=== PATIENT | female | born 1960 | race Caucasian/White ===

== ENCOUNTER 2023-12-09 13:24 | Outpatient (REF) | payer OTHER, SELFPAY ==
--- NOTE | ~2023-12-09 | XR_ITS ---
EXAMINATION: XR ABDOMEN COMPLETE CLINICAL INDICATION: Abdominal carcinomatosis, constipation COMPARISON: None available. TECHNIQUE: 2 views of the abdomen. FINDINGS: The bowel gas pattern is nonobstructive. No free air seen. There is moderate colonic fecal material with larger fecal material at the level of the rectum. Numerous sclerotic foci of bone observed suspicious for osseous metastases. Lumbar spondylitic change as well as degenerative disc space narrowing. XR/XR abdomen min 2V IMPRESSION: Nonobstructive bowel gas pattern without any evidence for free air. Moderate colonic fecal material with larger rectal fecal material seen. Numerous sclerotic foci of bone suspicious for osseous metastases. Electronically signed by: Sanchez Leyva MD 12/10/2023 11:49 AM EDT
--- NOTE | ~2023-12-09 | XR_ITS ---
EXAMINATION: XR CHEST CLINICAL INFORMATION: Malignant right pleural effusion COMPARISON: November 21, 2023. TECHNIQUE: Frontal view of the chest and decubitus view performed. FINDINGS: There is a large right hydropneumothorax with layering on the decubitus view. The pneumothorax previously seen on the right has markedly increased. No distinct acute left lung consolidation. The pulmonary vascularity on the left appears to be stable. XR/XR chest w decubitus IMPRESSION: Large right hydropneumothorax with layering on the decubitus view. The pneumothorax has prominently increased since the previous evaluation. Electronically signed by: Sanchez Leyva MD 12/10/2023 11:32 AM EDT
== END 2023-12-09 13:25 | disposition home or self-care (01) ==
LOC: HO.XRAY 13:24
PROVIDERS: Visit Provider Internal Medicine Medical Oncology
DX: C50.919 Malignant neoplasm of unspecified site of unspecified female breast (principal); J91.0 Malignant pleural effusion; C79.51 Secondary malignant neoplasm of bone
CPT/HCPCS: 71048; 74019

== ENCOUNTER 2023-12-29 12:04 | Inpatient (IN) | payer OTHER, SELFPAY ==
[2023-12-29] VITALS (9 sets, daily range): BP systolic 79–156; BP diastolic 49–72; PULSE 67–107; RESP 14–24; TEMP 36.3–36.7; O2SAT 95–98; BMI 32.6
--- NOTE | ~2023-12-29 | CT_ITS ---
CLINICAL HISTORY: Right pneumothorax. PROCEDURES: 1. Limited preprocedure CT of the chest. Permanent images saved in PACS. 2. CT-guided right chest tube placement. 3. Limited post procedure CT of the chest. Permanent images saved in PACS. CLINICIANS: Rakan Solomon PA-C MEDICATIONS: -Fentanyl 25 mcg, and lidocaine 1% 10 mL SQ -Antibiotics: None -For additional details, please see nursing flowsheet. COMPLICATIONS: None ESTIMATED BLOOD LOSS: < 5 ml CONTRAST: None SPECIMENS: A specimen was sent for culture. PROCEDURE NOTE: The procedure, risks, benefits, and alternatives were carefully explained to the patient and written informed consent was obtained. The patient was placed supine on the CT table. A timeout was performed. A limited CT of the chest was performed to localize the large right pneumothorax and choose appropriate needle entry and trajectory. The patient was prepped and draped in usual sterile fashion. The skin and subcutaneous tissues were anesthetized with lidocaine. Under CT guidance, a trocar needle was advanced through the chest wall into the right pleural space. Air was immediately aspirated. A 0.0035 J wire was inserted through the the trocar needle and coiled in the apex of the right pleural space. The trocar needle was then removed over the wire. The tract was then serially dilated. Over the wire, a 10 fr all-purpose drainage catheter was advanced and coiled into the right pleural space under CT guidance. The wire was then removed. The catheter was secured to the skin with a 2-0 nylon suture. The catheter was then connected to a close drainage system. A limited postprocedure CT was then obtained. The patient was stable after the procedure and was transferred back to the medical floor. CT/CT chest tube placement Impression: CT guided placement of a right chest tube. This procedure was performed by Rakan Solomon PA-C and supervised by Dr. Clark. Electronically signed by: Edgard Coffman MD 01/11/2024 04:21 PM [facility]
--- NOTE | ~2023-12-29 | XR_ITS ---
EXAMINATION: XR CHEST CLINICAL INFORMATION: dyspnea COMPARISON: X-ray dated December 29, 2023. TECHNIQUE: Frontal view of the chest was obtained. FINDINGS: Right-sided pneumothorax, moderate volume. Haziness in hypodensity in the right lower hemithorax likely pleural compartment. Volume loss/partially collapsed right lung. Pulmonary reticular pattern in the left lung. Cardiomediastinal silhouette size is normal with calcified plaque aortic arch. Multilevel thoracic spondylosis. Degenerative changes in the shoulders. XR/XR chest 1V IMPRESSION: Persistent right hydropneumothorax, moderate volume. Partially collapsed right lung. Overall no gross change. Electronically signed by: Dawit Barnard MD 12/30/2023 07:06 AM [facility]
--- NOTE | ~2023-12-29 | CT_ITS ---
EXAMINATION: CT ABDOMEN AND PELVIS WITHOUT CONTRAST CLINICAL INFORMATION: 63-year-old female was acute renal failure COMPARISON: None available. TECHNIQUE: Multidetector volumetric imaging was performed from the superior aspect of the liver through the pubic symphysis. Sagittal and coronal reformatted images were obtained on the technologist's workstation. This CT examination was performed using dose optimization techniques as appropriate, variously including the following: *Automated exposure control *Adjustment of mA and/or kV according to patient size (this includes techniques or standardized protocols for targeted exams where dose is matched to indication/reason for exam; i.e. extremities or head) *Use of iterative reconstruction technique DLP: 607 mGy-cm FINDINGS: LUNG BASES: There is right hydropneumothorax with visualized lung collapse surrounded by air and with dependent fluid in the right hemithorax. Left lung base is unremarkable. LIVER, GALLBLADDER, AND BILIARY TREE: The liver is normal in size, shape, and attenuation. No focal hepatic lesion or biliary ductal dilatation is present. The gallbladder is unremarkable with no evidence of radiopaque gallstones, gallbladder wall thickening, or obvious pericholecystic inflammatory changes. PANCREAS: Unremarkable. SPLEEN: Unremarkable. ADRENAL GLANDS: Unremarkable. KIDNEYS AND URETERS: The kidneys are normal in size, shape, and attenuation. No hydronephrosis, hydroureter, or calculi seen. No perinephric stranding. BLADDER: Bladder is partially decompressed via King catheter. GASTROINTESTINAL TRACT: Scattered diverticula seen in the descending colon ABDOMINAL WALL: There is fat-containing supraumbilical mid abdominal hernia. LYMPH NODES: Normal. VASCULAR: Unremarkable. PELVIC VISCERA: Unremarkable. OSSEOUS STRUCTURES: There are innumerable sclerotic lesions seen in the lumbar spine, pelvis, visualized hips, visualized ribs most likely due to widespread sclerotic metastases CT/CT abdomen pelvis wo IV con IMPRESSION: Right hydropneumothorax. Innumerable sclerotic lytic metastasis. Fleischner guidelines were followed. Electronically signed by: Nazario Babcock MD 12/29/2023 06:15 PM [facility]
--- NOTE | ~2023-12-29 | XR_ITS ---
EXAMINATION: XR CHEST CLINICAL INFORMATION: Shortness of breath. COMPARISON: Multiple priors, most recent chest radiograph dated 01/01/2024. TECHNIQUE: Frontal view of the chest was obtained. FINDINGS: Redemonstration of a right-sided chest tube in unchanged position. Persistent right apical pneumothorax, similar when compared to the prior examination. No left-sided pneumothorax. Small right-sided pleural effusion with right basilar airspace opacities, unchanged. Left basilar airspace opacities are slightly increased. Stable cardiomediastinal silhouette. XR/XR chest 1V IMPRESSION: 1. Right-sided chest tube in unchanged position with a persistent right apical pneumothorax, similar when compared to the prior examination. 2. Small right-sided pleural effusion with right basilar airspace opacities, unchanged. 3. Left basilar airspace opacities, slightly increased. Electronically signed by: Suresh Villareal MD 01/02/2024 07:41 PM [facility]
--- NOTE | ~2023-12-29 | CT_ITS ---
EXAMINATION: CT CHEST WITHOUT CONTRAST CLINICAL INFORMATION: Hypoxia. Shortness of breath. COMPARISON: No prior CT. Correlated to multiple chest x-rays dated December 28 and December 30, 2023. TECHNIQUE: Multidetector volumetric CT imaging of the chest was done. Axial MIP volume rendering provided. Sagittal and coronal reformatted images were obtained. This CT examination was performed using dose optimization techniques as appropriate, variously including the following: *Automated exposure control *Adjustment of mA and/or kV according to patient size (this includes techniques or standardized protocols for targeted exams where dose is matched to indication/reason for exam; i.e. extremities or head) *Use of iterative reconstruction technique DLP: 293 mGy-cm FINDINGS: Right-sided hydropneumothorax, large volume. Partially collapsed right upper and lower lobes and likely collapsed right middle lobe. Left-sided to pleural effusion, small volume. Multifocal patchy pulmonary groundglass, bilaterally. Calcified plaques throughout the thoracic aorta wall and the coronary arteries. No pericardial effusion. Multiple blastic lesions throughout the axial skeleton the rib cage the sternum, scapula and likely the appendicular skeleton. Fat-containing epigastric hernia.. . CT/CT chest wo IV con IMPRESSION: Right-sided hydropneumothorax, large volume. Partially collapsed right lung. Mild interstitial lung edema. Numerous blastic osseous metastasis. Discussed with the nurse, Juan, at the time of the interpretation on December 30, 2023 at 8:15 AM. Fleischner guidelines were followed. Electronically signed by: Dawit Barnard MD 12/30/2023 08:17 AM [facility]
--- NOTE | ~2023-12-29 | XR_ITS ---
EXAMINATION: XR CHEST 1 VIEW CLINICAL INFORMATION: hydropneumothorax COMPARISON: January 02, 2024 TECHNIQUE: Single portable frontal view. Tubes and lines: Right chest tube has been removed. Lungs and pleura: Diffuse interstitial opacification involving both lung ribeiro has not changed. Slightly increased right pneumothorax. No evidence of tension. Bilateral subpulmonic pleural effusions. Heart and mediastinum: The mediastinum is within normal limits.. Bones/soft tissue: Skeletal structures included are normal for patient's age. XR/XR chest 1V IMPRESSION: 1. Right chest tube has been removed. 2. Slightly increased right pneumothorax. No evidence of tension. 3. Diffuse interstitial opacification and bilateral subpulmonic pleural effusions unchanged. (Referring physician staff is being called, by physician staff assistance, to be alerted of the above critical findings and recommendations.) Maryse Javed 01/03/2024 2:46 PM [facility] [employer] 1. Electronically signed by: Chip Barnes MD 01/03/2024 03:47 PM [facility]
--- NOTE | ~2023-12-29 | US_ITS ---
EXAMINATION: US ABDOMEN LIMITED CLINICAL INFORMATION: Hepatitis. COMPARISON: CT abdomen/pelvis dated 12/29/2023. TECHNIQUE: Real-time imaging of the right upper quadrant abdominal viscera. FINDINGS: PANCREAS: Obscured by overlying bowel gas. The visualized portion of the pancreatic head is unremarkable. LIVER: Unremarkable. The liver is normal in size. The liver contour is normal. Parenchymal echogenicity is normal. No focal hepatic lesion. There is no intrahepatic biliary duct dilatation seen. GALLBLADDER: Nonmobile probable gallbladder wall polyp measuring up to 0.5 cm. No mobile gallstone. No significant bladder wall thickening or pericholecystic free fluid to suggest acute cholecystitis. Probable focal fatty sparing adjacent to the gallbladder within the right lobe of the liver. COMMON BILE DUCT: Normal in caliber measuring 0.6 cm in diameter. RIGHT KIDNEY: Mild renal pelvic fullness. No renal calculi or focal parenchymal lesions. The kidney measures 9.8 cm in maximum dimension. FREE FLUID: None. US/US abdomen limited IMPRESSION: 1. Probable gallbladder wall polyp measuring 0.5 cm. No cholelithiasis, gallbladder wall thickening, or pericholecystic free fluid to suggest acute cholecystitis. 2. Mild right renal pelvic fullness. 3. Pancreas obscured by overlying bowel gas. Electronically signed by: Suresh Villareal MD 01/03/2024 03:04 PM [facility]
--- NOTE | ~2023-12-29 | XR_ITS ---
EXAMINATION: XR CHEST CLINICAL INFORMATION: chest tube COMPARISON: Chest x-ray on 12/30/2023 at 0118 hours TECHNIQUE: Frontal view of the chest was obtained on 12/30/2023 at 0456 hours. FINDINGS: HEART & VASCULARITY: There are normal cardiac size and pulmonary vascularity. There is no significant mediastinal shift. LUNGS: Diffuse vascular and interstitial prominence is seen in bilateral lungs. A persistent large 30% right hydropneumothorax is seen. Gravitating pleural fluid is seen in lateral posterior right lung base. LINES & SUPPORTING TUBES: Right lateral lung base percutaneous thoracostomy pigtail drainage catheter is seen with the pigtail loop in medial right upper lung just above the superior border of the partially collapsed right upper lobe. XR/XR chest 1V IMPRESSION: 1. Unchanged diffuse vascular and interstitial prominence in bilateral lungs, partially collapsed right lung. 2. Persistent large 30% right hydropneumothorax. 3. Interval placement of Right lateral lung base percutaneous thoracostomy pigtail drainage catheter. Electronically signed by: Sana Cohen MD 12/30/2023 07:31 AM [facility]
--- NOTE | ~2023-12-29 | XR_ITS ---
EXAMINATION: XR CHEST CLINICAL INFORMATION: evaluate right pneumothorax COMPARISON: Chest x-ray January 03, 2024, 3:01 PM. TECHNIQUE: Frontal portable view of the chest was obtained. 1300 hours FINDINGS: The volume of the right-sided pneumothorax has increased slightly since prior exam January 03, 2024. No evidence of tension pneumothorax. Subcutaneous emphysema now seen along the right axillary region. Hazy bilateral airspace opacities remain similar prior chest x-ray. There is also blunting of the costophrenic angle on the right consistent with pleural effusion. XR/XR chest 1V IMPRESSION: 1. Slight increase in volume of right-sided pneumothorax since prior chest x-ray January 03, 2024. No evidence of tension pneumothorax. 2. Subcutaneous emphysema now seen along the right axillary region. 3. Hazy bilateral airspace opacities remain similar prior chest x-ray. Electronically signed by: Coyd Meek MD 01/05/2024 05:36 PM [facility]
--- NOTE | ~2023-12-29 | XR_ITS ---
EXAMINATION: XR CHEST CLINICAL INFORMATION: Follow-up right pneumothorax COMPARISON: Numerous reason priors, most recently 01/05/2024 at 12:59 PM. TECHNIQUE: Frontal view of the chest was obtained. FINDINGS: No lines or tubes present. Leads on the chest. Right-sided moderate to large hydropneumothorax is slightly larger in the apical dimension, measuring 6.6 cm pleural separation, previously 5.9 cm. Lateral and inferior components appear similar. Remaining inflated lung is partially consolidated in the mid aspect. No left pneumothorax. No definite left effusion although assessment is limited by artifact of overlying soft tissues. Diffuse left lung opacities with appearance of pulmonary edema pattern. These appear slightly more confluent and involve the left upper lobe as well. Soft tissue emphysema again seen right lateral chest wall and axilla. Blastic metastases in the skeletal structures again noted. XR/XR chest 1V IMPRESSION: 1. Mildly worsening right moderate to large sized pneumothorax. Stable right hydrothorax. 2. Worsening opacity in the inflated right midlung, and throughout the left lung in a pulmonary edema type pattern. 3. Right chest wall subcutaneous emphysema. 4. Blastic metastases of the skeletal structures. Electronically signed by: Alexandro Samayoa MD 01/06/2024 12:13 PM [facility]
--- NOTE | ~2023-12-29 | XR_ITS ---
EXAMINATION: XR CHEST CLINICAL INFORMATION: hydropneumothorax COMPARISON: 12/30/2023, with CT exam performed 12/30/2023 as well. TECHNIQUE: AP frontal view of the chest was obtained. FINDINGS: Redemonstration of a right-sided pleural catheter in place, which has been mildly repositioned, tip is in similar region in the right suprahilar area. Previously seen hydropneumothorax is decreased in size, especially laterally. There is a tiny amount of pneumothorax remaining with stable hydrothorax seen in both laterally and inferiorly. There is approximately 4 cm of apical pleural separation, previously 6.2 cm. No left-sided pneumothorax or effusion. Lungs again demonstrate diffusely increased parenchymal markings, patchy in distribution and similar. Numerous blastic metastases seen throughout the bony structures. XR/XR chest 1V IMPRESSION: 1. Slight repositioning of the right pleural catheter. 2. Right hydropneumothorax is significantly smaller but remains present. 3. Similar diffuse bilateral patchy interstitial and alveolar pulmonary opacities. 4. Blastic metastases of the skeletal structures. Electronically signed by: Alexandro Samayoa MD 01/01/2024 11:03 AM [facility] [place]
--- NOTE | ~2023-12-29 | XR_ITS ---
EXAMINATION: XR CHEST CLINICAL INFORMATION: sob, hx malignant effusion, hx PTX COMPARISON: X-ray dated December 09, 2023. TECHNIQUE: Frontal view of the chest was obtained. FINDINGS: Partially collapsed right lung. Likely a right-sided hydropneumothorax. Cardiomediastinal silhouette is midline. Left lung demonstrates a pulmonary reticular nodular pattern. Calcified plaque thoracic aorta. Degenerative changes in the shoulders. XR/XR chest 1V IMPRESSION: Concerning right-sided hydropneumothorax with a partially collapsed right lung. Chronic interstitial lung disease superimposed malignancy cannot be entirely excluded. Electronically signed by: Dawit Barnard MD 12/29/2023 02:17 PM EST
--- NOTE | 2023-12-29 12:10 | ED_ITS ---
HPI - SOB/Dyspnea General Chief Complaint: Dyspnea Stated Complaint: Difficulty breathing Time Seen by Provider: 12/29/23 12:17 Source: patient and other History of Present Illness ED Provider: Dr. 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 Ochoa and was seen on 12/17/2023. In reviewing Dr. Reyes note, the patient has had recurrent right malignant pleural effusions secondary to pleural metastases with a large ex vacuo pneumothorax. Patient was referred to [facility] to see Dr. Benson for consideration of decortication. The patient was brought to emergency department by her fiance for evaluation of shortness of breath, failure to thrive (the patient was not been eating for 3-4 days but has been drinking fluids), increased shortness of breath with increased pain. The fiance states the patient was short of breath all night and got no sleep. The patient was also been dry heaving whenever she tries to take pills or food. The fiance states that he did speak to Dr. Ochoa who advised him to take the patient to [facility] however the patient was concerned that the patient was not well enough to go to [facility] and brought her to our emergency department for evaluation. Related Data Home Medications ?Medication ?Instructions ?Recorded ?Confirmed hydrochlorothiazide 25 mg tablet 25 mg PO DAILY 12/09/23 12/17/23 letrozole 2.5 mg tablet 2.5 mg PO DAILY 12/09/23 12/17/23 lisinopril 10 mg tablet 10 mg PO DAILY 12/09/23 12/17/23 ondansetron HCl 4 mg tablet 4 mg PO Q8H PRN nausea/vomiting 12/09/23 12/17/23 zolpidem 5 mg tablet 5 mg PO BEDTIME PRN insomnia 12/09/23 12/17/23 Previous Rx's ?Medication ?Instructions ?Recorded abemaciclib 200 mg tablet 200 mg PO BID #60 tabs 12/09/23 ondansetron HCl 8 mg tablet 8 mg PO Q8H #60 tabs 12/09/23 Allergies Allergy/AdvReac Type Severity Reaction Status Date / Time No Known Allergies Allergy Verified 12/29/23 12:16 [facility] Family History Family History Sister Pancreatic cancer Maternal Grandmother Cervical cancer Social History Social History Household Members: Spouse Patient Tobacco Use Status: Former Tobacco user Tobacco use type: Cigarette e-Cigarette/Vaping Use: Never Used Second Hand Smoke Exposure: No Advance Directives: No Advance Directives Information Provided: Yes Do you have a plan to hurt others: No Plan service: No Current occupational status: retired Physical Exam 2 Vital Signs: Vital Signs: Last Vital Signs Temp 97.7 F 12/29/23 14:16 Pulse 87 12/29/23 14:16 Resp 22 H 12/29/23 14:16 BP 132/63 12/29/23 14:16 Pulse Ox 95 12/29/23 14:16 O2 Del Method Room Air 12/29/23 14:16 BMI result Body Mass Index 32.6 Vital signs revealed a low blood pressure 79/49 Exam: General: Patient was awake, alert, appears to be in distress secondary to her diffuse pain, she appears dyspneic but he was not tachypneic Head: Normocephalic, atraumatic EENT: PERRL, Lids normal, sclera normal, conjunctiva normal, nose normal , ears normal, throat without erythema or exudates, patient does have dry blood in her mouth Neck: Supple, no adenopathy Lung: Diminished breath sounds on the right compared to the left, no wheezing, rhonchi or rales Chest: symmetric movement, nontender Heart: regular rate and rhythm, normal S1, S2 no murmurs or rubs Abdomen: soft, non-tender, nondistended, normal bowel sounds Back: no vertebral tenderness, no CVAT Extremities: no deformities, moves all extremities symmetrically Course Course Course Narrative: This is a Rapid Medical Examination (RME) performed by Kailash Garcia PA-C in triage. Full HPI, ROS, assessment and treatment plan per primary provider in the Main ED. 63 yo female with metastatic breast cancer on oral chemotherapy with right sided malignant pleural effusion, hx right sided PTX who presents to the ER for evaluation of SOB for the last 2 days along with N/V, poor PO intake for the last 2-3 weeks. hypotensive 70/40s, appears unwell, chronically ill appearing, SOB. Plan: labs, CXR, infectious workup Medications Administered Generic Name Dose Route Start Last Admin Trade Name Freq PRN Reason Stop Dose Admin Sodium Chloride 1,000 mls @ 999 mls/hr 12/29/23 14:01 12/29/23 14:24 Ns IV 12/29/23 15:01 999 mls/hr .Q1H1M STA Administration Potassium Chloride 10 meq in 100 mls @ 100 mls/hr 12/29/23 14:15 12/29/23 14:24 Potassium Chloride/H20 IV 12/29/23 18:14 100 mls/hr Q1H BRANDON Administration Discontinued Medications Generic Name Dose Route Start Last Admin Trade Name Freq PRN Reason Stop Dose Admin Diphenhydramine HCl 25 mg 12/29/23 14:11 12/29/23 14:24 Diphenhydramine Hcl 50 Mg/Ml Vial IVPUSH 12/29/23 14:12 25 mg ONCE ONE Administration Fentanyl 50 mcg 12/29/23 12:25 12/29/23 12:45 Fentanyl Citrate/Pf 100 Mcg/2 Ml Vial IVPUSH 12/29/23 12:26 50 mcg ONCE ONE Administration Protocol Metoclopramide HCl 10 mg 12/29/23 14:11 12/29/23 14:24 Metoclopramide Hcl 10 Mg/2 Ml Vial IVPUSH 12/29/23 14:12 10 mg ONCE STA Administration Medical Decision Making Medical Decision Making MDM Narrative: 63-year-old female with a history of 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 Delong he was brought to the emergency department by his fiancee for evaluation of shortness of breath, pain, failure to thrive with not eating times 3-4 days but drinking fluids, vomiting, diarrhea and weakness. Vital signs revealed that she was hypotensive. Physical examination revealed diminished breath sounds in the right compared to the left and dyspnea otherwise was unremarkable. Differential diagnosis: ?Includes but is not limited to dehydration, volume depletion, failure to thrive right pleural effusion, right pneumothorax, electrolyte abnormalities, anemia Course: 12:25 Patient was treated with normal saline IV x1 L, Zofran 4 mg IV and fentanyl 50 mcg IV 13:56 Patient had no improvement with the above treatment. My interpretation patient's laboratory evaluation is as follows: WBC low 2900 with 65 neutrophils, 9 bands, 18 lymphocytes with an absolute neutrophil count of 2100 . INR and PT were elevated 1.3 and 15.5. VBG revealed acidemia with a pH of 7.24 low CO2 of 24 and low bicarb of 11-this is consistent with a metabolic acidosis with respiratory compensation. Sodium low 133. Potassium low 2.4. Chloride low 93. Bicarb low 13. Anion gap elevated 29. BUN is pending but creatinine is elevated 11.65. These findings are consistent with poor food intake and consistent with starvation ketosis, volume depletion and acute kidney injury. Calcium is low 5.9. AST and ALT were elevated 92 and 35. Magnesium was normal at 2.5 Chest x-ray reveals a right pneumothorax with no significant pleural effusion, pneumothorax was larger and there was a large layering pleural effusion noted on 12/09/2023 x-ray Patient was ordered to get potassium chloride 10 mEq per 100 cc NS x4,second L of normal saline, Benadryl 25 mg IV and Reglan 10 mg IV I did discuss the patient's presentation over tiger text with her oncologist, Dr. Ochoa who felt that the patient could be managed here at this time. 14:56 I did discuss the patient's acute renal failure with the covering fashion show director, . He recommended completing the 2 L of normal saline and then keeping the patient on 150 mL/hr. He recommended CT scan of the abdomen pelvis obstructive process and insertion of a King catheter for 24 hours to follow her I's and O's. I did discuss the patient's presentation over tiger text with the covering hospitalist, physician power plant assistant, Rita Mondragon and the patient will be admitted to the hospitalist service for further treatment. Admission/Observation Consideration of admission/observation: Escalation of care including admission/observation considered (Yes) Consult Healthcare Provider Management of the patient was discussed with: Hospitalist (Physician power plant assistant, Rita Mondragon) and Commercial Production Editor Sociology Faculty Member- , oncologist-Dr. Ochoa Lab Data MDM Lab Attestation statement: I reviewed the patient's lab results. 12/29/23 12:37 12/29/23 Unknown Labs: Lab Results 12/29/23 12/29/23 12/29/23 Range/Units 12:34 12:37 12:39 WBC 2.9 L (4.8-10.8) X10*3/uL RBC 4.09 L (4.20-5.50) X10*6/uL Hgb 12.3 (12.0-16.0) g/dl Hct 34.4 L (37.0-47.0) % MCV 84.1 (80.0-98.0) fL MCH 30.1 (27.0-33.0) pg MCHC 35.8 H (31.0-35.0) g/dl RDW 14.9 (11.0-16.0) % Plt Count 238 D (160-400) X10*3/uL MPV 9.3 L (9.4-12.3) fL Immature Gran % (Auto) Cancelled Neut % (Auto) Cancelled Lymph % (Auto) Cancelled [place] % (Auto) Cancelled Eos % (Auto) Cancelled Baso % (Auto) Cancelled Lymph # (Auto) Cancelled [place] # (Auto) Cancelled Eos # (Auto) Cancelled Baso # (Auto) Cancelled Abs Immat Gran (auto) Cancelled Absolute Neuts (auto) Cancelled Absolute Nucleated RBC 0.000 (0.0-0.012) X10*3/uL Nucleated RBC % (auto) 0.0 (0.0-0.2) /100WBC Neutrophils % (Manual) 65 (45-73) % Band Neutrophils % 9 H (3-5) % Lymphocytes % (Manual) 18 L (20-40) % Monocytes % (Manual) 5 (2-11) % Eosinophils % (Manual) 2 (0-4) % Basophils % (Manual) 1 (0-2) % Abs Neuts (Manual) 2.1 (2.0-8.3) X10*3/uL Lymphocytes # (Manual) 0.5 L (1.2-4.9) X10*3/uL Monocytes # (Manual) 0.1 (0.1-1.2) X10*3/uL Eosinophils # (Manual) 0.1 (0.0-0.4) X10*3/uL Toxic Granulation PRESENT Toxic Vacuolation PRESENT Platelet Estimate NORMAL (NORMAL) Plt Morphology Comment NORMAL RBC Morphology NOTED [place] Cells 2+ (3-5) /OIF PT 15.5 H (10.9-12.4) SEC INR 1.3 H (0.9-1.1) APTT 31.4 (26.0-36.8) SEC VBG pH (7.32-7.43) VBG pCO2 mmHg VBG pO2 mmHg VBG HCO3 (22-26) mmol/L VBG O2 Saturation % VBG Base Excess mmol/L Sodium 132 L (135-145) mmol/L Potassium 2.4 L* D (3.3-5.1) mmol/L Chloride 91 L (96-108) mmol/L Carbon Dioxide 12 L (22-29) mmol/L Anion Gap 31 H (12-20) BUN > 125 H (9-16) mg/dL Creatinine 12.03 H* (0.5-1.4) mg/dL Estim Creat Clear Calc 4.8 Estimated GFR 3 Random Glucose 136 H (60-115) mg/dL Lactic Acid 1.9 (0.5-2.0) mmol/L Calcium 6.2 L D (8.4-10.2) mg/dL Magnesium (1.6-2.6) mg/dL Total Bilirubin 0.4 (0.0-1.0) mg/dL Direct Bilirubin (0.0-0.5) mg/dL AST 105 H (5-31) U/L ALT 40 H (0-31) U/L Alkaline Phosphatase 84 (39-117) U/L Troponin I High Sens 105.7 H* (<3.5-17.0) ng/L Total Protein 8.1 H (6.5-8.0) g/dL Albumin 3.8 (3.5-5.0) g/dL Lipase 23 (8-78) U/L Blood Type Antibody Screen 12/29/23 12/29/23 12/29/23 Range/Units 13:00 13:16 Unknown WBC (4.8-10.8) X10*3/uL RBC (4.20-5.50) X10*6/uL Hgb (12.0-16.0) g/dl Hct (37.0-47.0) % MCV (80.0-98.0) fL MCH (27.0-33.0) pg MCHC (31.0-35.0) g/dl RDW (11.0-16.0) % Plt Count (160-400) X10*3/uL MPV (9.4-12.3) fL Immature Gran % (Auto) Neut % (Auto) Lymph % (Auto) [place] % (Auto) Eos % (Auto) Baso % (Auto) Lymph # (Auto) [place] # (Auto) Eos # (Auto) Baso # (Auto) Abs Immat Gran (auto) Absolute Neuts (auto) Absolute Nucleated RBC (0.0-0.012) X10*3/uL Nucleated RBC % (auto) (0.0-0.2) /100WBC Neutrophils % (Manual) (45-73) % Band Neutrophils % (3-5) % Lymphocytes % (Manual) (20-40) % Monocytes % (Manual) (2-11) % Eosinophils % (Manual) (0-4) % Basophils % (Manual) (0-2) % Abs Neuts (Manual) (2.0-8.3) X10*3/uL Lymphocytes # (Manual) (1.2-4.9) X10*3/uL Monocytes # (Manual) (0.1-1.2) X10*3/uL Eosinophils # (Manual) (0.0-0.4) X10*3/uL Toxic Granulation Toxic Vacuolation Platelet Estimate (NORMAL) Plt Morphology Comment RBC Morphology Joyce Cells /OIF PT (10.9-12.4) SEC INR (0.9-1.1) APTT (26.0-36.8) SEC VBG pH 7.24 L (7.32-7.43) VBG pCO2 24 mmHg VBG pO2 42 mmHg VBG HCO3 11 L (22-26) mmol/L VBG O2 Saturation 66.0 % VBG Base Excess -14.4 mmol/L Sodium 133 L (135-145) mmol/L Potassium 2.4 L* (3.3-5.1) mmol/L Chloride 93 L (96-108) mmol/L Carbon Dioxide 13 L (22-29) mmol/L Anion Gap 29 H (12-20) BUN 155 H (9-16) mg/dL Creatinine 11.65 H* (0.5-1.4) mg/dL Estim Creat Clear Calc 4.8 Estimated GFR 3 Random Glucose 132 H (60-115) mg/dL Lactic Acid 1.2 (0.5-2.0) mmol/L Calcium 5.9 L* (8.4-10.2) mg/dL Magnesium 2.5 (1.6-2.6) mg/dL Total Bilirubin 0.4 (0.0-1.0) mg/dL Direct Bilirubin 0.2 (0.0-0.5) mg/dL AST 92 H (5-31) U/L ALT 35 H (0-31) U/L Alkaline Phosphatase 74 (39-117) U/L Troponin I High Sens (<3.5-17.0) ng/L Total Protein 7.2 (6.5-8.0) g/dL Albumin 3.4 L (3.5-5.0) g/dL Lipase (8-78) U/L Blood Type O Positive Antibody Screen NEGATIVE Independent Interpretation I performed an independent interpretation of an: EKG and Plain X-Ray Interpretation: My independent interpretation patient's 12 EKG done at 12:27 hours is as follows: Normal sinus rhythm rate of 94, normal NE interval, prolonged QRS duration of 148 milliseconds, prolonged QTC interval of 550 milliseconds, left bundle-branch block, no ST segment elevation, no ST segment depression, no significant T-wave abnormalities. No old EKG for evaluation My interpretation patient's one-view chest x-ray is as follows: Right partial pneumothorax with no significant pleural effusion-pneumothorax appears to have improved and pleural effusion is markedly resolved compared to the previous chest x-ray on 12/09/2023 Radiology Impression Discussion of test interpretation with radiology: I have reviewed the radiologist's reading. Radiologist Impression: XR chest 1V IMPRESSION: Concerning right-sided hydropneumothorax with a partially collapsed right lung. Chronic interstitial lung disease superimposed malignancy cannot be entirely excluded. Electronically signed by: Dawit Barnard MD 12/29/2023 02:17 PM Dictated By: Dawit Hernandez MD Independent Historian Clinical information obtained from an independent historian. History obtained from or confirmed by: Other (Fiance) External Record Review External record reviewed: Office record Chronic Conditions Patient?s care impacted by: Cancer (Metastatic breast cancer) Critical Care Time Critical Care Time Critical Care Time: Yes Total Critical Care Time: 80 Attestation: Critical Care: The patient was critically ill with a high probability of imminent or life threatening deterioration. I spent greater than 30 minutes of discontinuous time evaluating the patient,delivering critical care at the bedside, discussing and evaluating pertinent data with consultants. Critical care time does not include time spent performing separately billable procedures or teaching. Total time spent performing critical care was 80 minutes. Discharge Plan Discharge Patient Disposition: Admitted As Inpatient Prescriptions: No Action ondansetron HCl 4 mg tablet 4 mg PO Q8H PRN (Reason: nausea/vomiting) lisinopril 10 mg tablet 10 mg PO DAILY hydrochlorothiazide 25 mg tablet 25 mg PO DAILY zolpidem 5 mg tablet 5 mg PO BEDTIME PRN (Reason: insomnia) ondansetron HCl 8 mg Tablet 8 mg PO Q8H Qty: 60 2RF letrozole 2.5 mg tablet 2.5 mg PO DAILY abemaciclib 200 mg Tablet 200 mg PO BID Qty: 60 6RF Print Language: Romansh
--- NOTE | 2023-12-29 12:13 | ECG_ITS ---
Test Reason : SOB Blood Pressure : / mmHG Vent. Rate : 094 BPM Atrial Rate : 094 BPM P-R Int : 140 ms QRS Dur : 148 ms QT Int : 440 ms P-R-T Axes : 090 -23 110 degrees QTc Int : 550 ms Normal sinus rhythm Left bundle branch block Abnormal ECG No previous ECGs available Referred By: Natalia Garcia Electronically Signed By:DENITA WING MD
--- NOTE | 2023-12-29 12:26 | ECG_ITS ---
Test Reason : K LEVELS Blood Pressure : / mmHG Vent. Rate : 102 BPM Atrial Rate : 104 BPM P-R Int : 168 ms QRS Dur : 134 ms QT Int : 426 ms P-R-T Axes : 090 -36 115 degrees QTc Int : 555 ms Sinus tachycardia Left axis deviation Left bundle branch block Minimal voltage criteria for LVH, may be normal variant ( Jay Jay product ) Abnormal ECG When compared with ECG of 29-DEC-2023 12:27, No significant change was found Referred By: Gabino Merchant Electronically Signed By:DENITA WING MD
[2023-12-29] MEDS: fentaNYL citrate/PF 100 MCG/2 ML VIAL 50 MCG IVPUSH (12:45)
[2023-12-29 12:46] LABS: Hematocrit 34.4 % (37.0-47.0); Hemoglobin 12.3 g/dl (12.0-16.0); Mean Corpuscular HGB Conc 35.8 g/dl (31.0-35.0); Mean Corpuscular Hemoglobin 30.1 pg (27.0-33.0); Mean Corpuscular Volume 84.1 fL (80.0-98.0); Mean Platelet Volume 9.3 fL (9.4-12.3); Platelet Count 238 X10*3/uL (160-400); Red Blood Count 4.09 X10*6/uL (4.20-5.50); Red Cell Distribution Width 14.9 % (11.0-16.0); White Blood Count 2.9 X10*3/uL (4.8-10.8)
[2023-12-29 13:00] LABS: INTERNATIONAL NORM RATIO 1.3 (0.9-1.1); Prothrombin Time 15.5 SEC (10.9-12.4)
[2023-12-29 13:02] LABS: Partial Thromboplastin Time 31.4 SEC (26.0-36.8)
[2023-12-29 13:07] LABS: Lactic Acid 1.9 mmol/L (0.5-2.0)
[2023-12-29 13:20] LABS: Alanine Aminotransferase 40 U/L (0-31); Albumin Level 3.8 g/dL (3.5-5.0); Alkaline Phosphatase 84 U/L (39-117); Aspartate Amino Transferase 105 U/L (5-31); Bilirubin Total 0.4 mg/dL (0.0-1.0); Calcium 6.2 mg/dL (8.4-10.2); Glucose Random 136 mg/dL (60-115); Lipase 23 U/L (8-78); Total Protein 8.1 g/dL (6.5-8.0)
[2023-12-29 13:21] LABS: VBG Base Excess -14.4 mmol/L; VBG HCO3 11 mmol/L (22-26); VBG pCO2 24 mmHg; VBG pH 7.24 (7.32-7.43); VBG pO2 42 mmHg
[2023-12-29 13:24] LABS: Venous Blood Gas Refer to POC result
[2023-12-29 13:27] LABS: Anion Gap 31 (12-20); Blood Urea Nitrogen > 125 mg/dL (9-16); Carbon Dioxide 12 mmol/L (22-29); Chloride 91 mmol/L (96-108); Creatinine Clr Calc Pharmacy 4.8; Estimated Glomerular Filt Rate 3; Potassium 2.4 mmol/L (3.3-5.1); Sodium 132 mmol/L (135-145); Troponin-I High Sensitivity 105.7 ng/L (<3.5-17.0)
[2023-12-29 13:33] LABS: Lactic Acid 1.2 mmol/L (0.5-2.0)
[2023-12-29 13:49] LABS: Alanine Aminotransferase 35 U/L (0-31); Albumin Level 3.4 g/dL (3.5-5.0); Alkaline Phosphatase 74 U/L (39-117); Anion Gap 29 (12-20); Aspartate Amino Transferase 92 U/L (5-31); Bilirubin Direct 0.2 mg/dL (0.0-0.5); Bilirubin Total 0.4 mg/dL (0.0-1.0); Calcium 5.9 mg/dL (8.4-10.2); Carbon Dioxide 13 mmol/L (22-29); Chloride 93 mmol/L (96-108); Creatinine Clr Calc Pharmacy 4.8; Estimated Glomerular Filt Rate 3; Glucose Random 132 mg/dL (60-115); Magnesium 2.5 mg/dL (1.6-2.6); Potassium 2.4 mmol/L (3.3-5.1); Sodium 133 mmol/L (135-145); Total Protein 7.2 g/dL (6.5-8.0)
[2023-12-29 13:51] LABS: Band Neutrophils Percent 9 % (3-5); Basophils Percent Manual 1 % (0-2); Eosinophils Absolute Manual 0.1 X10*3/uL (0.0-0.4); Eosinophils Percent Manual 2 % (0-4); Lymphocytes Absolute Manual 0.5 X10*3/uL (1.2-4.9); Lymphocytes Percent Manual 18 % (20-40); Monocytes Absolute Manual 0.1 X10*3/uL (0.1-1.2); Monocytes Percent Manual 5 % (2-11); Neutrophils Absolute Manual 2.1 X10*3/uL (2.0-8.3); Neutrophils Percent Manual 65 % (45-73)
[2023-12-29 13:54] LABS: Burr Cells 2+ (3-5) /OIF; Platelet Estimate NORMAL (NORMAL); Platelet Morphology Comment NORMAL; RBC Morphology NOTED; Toxic Granulation PRESENT; Toxic Vacuolation PRESENT
[2023-12-29 14:11] LABS: Blood Urea Nitrogen 155 mg/dL (9-16)
[2023-12-29] MEDS: Metoclopramide HCl 10 MG/2 ML VIAL IVPUSH ×2 (14:24→19:21)
[2023-12-29] MEDS: diphenhydrAMINE HCL 50 MG/ML VIAL 25 MG IVPUSH ×2 (14:24→19:31)
[2023-12-29] MEDS: 0.9 % Sodium Chloride 1,000 ML 999 ML IV (14:24)
[2023-12-29] MEDS: Potassium Chloride/H20 10 MEQ/100 ML PIGGYBACK 100 MEQ IV ×8 (14:24→23:45)
--- NOTE | 2023-12-29 15:21 | PM.CNNEP ---
History of Present Illness Reason for Consult Consult date: 12/29/23 Chief Complaint Chief complaint: Difficulty breathing History of Present Illness Narrative: 63 y/o female with a medical history of left breast invasive lobar carcinoma with malignant right pleural effusion (recurrent pleural effusions secondary to pleural metastases) and metastases to spine, abdomen (ascites and abnormal retroperitoneal adenopathy with left hydroureter/hydronephrosis), followed by Dr Ochoa. Presented 12/28 with shortness of breath, failure to thrive (not eating for 3-4 days but has been drinking lots of bottled water per filiberto), increased pain (back, lower abdomen and hip). Per filiberto, has been having frequent diarrhea, large amounts for last few days and not keeping anything in her. labs on 12/28: Na 133, K 2.4, CO2 13, AG 29, BUN 155, creatinine 11.65 creatinine on 12/16 was 1.71 at bedside pt is awake and alert and answering questions appropriately, frequently complaining of pain. Filiberto Delmar, is with her. she states she has been feeling short of breath and is in pain in her back, hip and lower abdomen reports she is not sure when she last urinated, has been having frequent watery diarrhea denies other new symptoms at this time Review of Systems Constitutional: Reports as per HPI, Reports fatigue and Reports malaise Denies dizziness Cardiovascular: Denies chest pain, Denies leg edema, Denies lightheadedness and Reports dyspnea Respiratory: Reports dyspnea Gastrointestinal: Reports abdominal pain (reports across lower abdomen), Reports diarrhea, Denies nausea and Denies vomiting Genitourinary: Denies hematuria, Denies difficulty voiding, Denies dysuria and Denies flank pain Musculoskeletal: Reports back pain Comments: back and hip pain Skin/Breast: Denies rash Denies dizziness Endocrine: Reports fatigue PMF Family History Family History Sister Pancreatic cancer Maternal Grandmother Cervical cancer Social History Social History Household Members: Spouse Patient Tobacco Use Status: Former Tobacco user Tobacco use type: Cigarette e-Cigarette/Vaping Use: Never Used Second Hand Smoke Exposure: No Advance Directives: No Advance Directives Information Provided: Yes Do you have a plan to hurt others: No Plan service: No Current occupational status: retired [employer] Allergies Allergy/AdvReac Type Severity Reaction Status Date / Time No Known Allergies Allergy Verified 12/29/23 12:16 Active Medications: Current Medications Potassium Chloride (Potassium Chloride/H20) 10 meq in 100 mls @ 100 mls/hr IV Q1H BRANDON Stop: 12/29/23 18:14 Last Admin: 12/29/23 14:24 Dose: 100 mls/hr Home Medications ?Medication ?Instructions ?Recorded ?Confirmed ?Last Taken ?Type hydrochlorothiazide 25 mg tablet 25 mg PO DAILY 12/09/23 12/17/23 Unknown History letrozole 2.5 mg tablet 2.5 mg PO DAILY 12/09/23 12/17/23 Unknown History lisinopril 10 mg tablet 10 mg PO DAILY 12/09/23 12/17/23 Unknown History ondansetron HCl 4 mg tablet 4 mg PO Q8H PRN nausea/vomiting 12/09/23 12/17/23 Unknown History zolpidem 5 mg tablet 2.5 - 5 mg PO BEDTIME PRN insomnia 12/09/23 12/17/23 Unknown History scopolamine base 1 mg over 3 days 1 patch topical Q3D 12/29/23 Unknown History transdermal patch (Transderm-Scop) Physical Exam Vital Signs: Last Vital Signs Temp 97.7 F 12/29/23 14:16 Pulse 87 12/29/23 14:16 Resp 22 H 12/29/23 14:16 BP 132/63 12/29/23 14:16 Pulse Ox 95 12/29/23 14:16 O2 Del Method Room Air 12/29/23 14:16 BMI result Body Mass Index 32.6 Const General: alert, awake and tired appearing Orientation/consciousness: patient oriented x3 Resp Effort & Inspection: able to speak in complete sentences and labored Auscultation: clear to auscultation bilaterally Cardio Rate: tachycardic Rhythm: regular rhythm Heart sounds: S1 normal heart sound present and S2 normal heart sound present GI Palpation (GI): Soft to palpation and Tenderness to palpation present (GI) Skin Rashes: no rashes Neuro Other: no tremors or asterixis General: patient oriented x3 Extrem General: No edema and No pedal edema Results Lab Results 12/29/23 12:37 12/29/23 Unknown Lab results: Chemistry 12/29/23 12/29/23 12:34 Unknown Sodium 132 L 133 L Potassium 2.4 L* D 2.4 L* Carbon Dioxide 12 L 13 L BUN > 125 H 155 H Creatinine 12.03 H* 11.65 H* Calcium 6.2 L D 5.9 L* Hematology 12/29/23 12:37 WBC 2.9 L Hgb 12.3 Plt Count 238 D Assessment and Plan (1) Acute renal failure: Qualifiers: Acute renal failure type: unspecified Qualified Code(s): N17.9 - Acute kidney failure, unspecified Status: Acute (2) Acute hypokalemia: Status: Acute (3) Volume depletion: Status: Acute (4) Breast cancer metastasized to bone: Qualifiers: Laterality: unspecified laterality Qualified Code(s): C50.919 - Malignant neoplasm of unspecified site of unspecified female breast; C79.51 - Secondary malignant neoplasm of bone Status: Acute Plan Acute renal failure likely secondary to volume depletion from severe diarrhea hydronephrosis/hydroureter on recent abdominal imaging raises concern for obstruction from metastatic cancer as contributing factor recommend 2L NS bolus, followed by NS at 150mL/hr IVF replace K with IV potassium recommend sherman catheter insertion to drain bladder due to possible obstruction, also allow for close I&O monitoring recommend CT without contrast to evaluate further No absolute indication for HD yet recommend close blood pressure and I&O monitoring recommend avoiding nephrotoxins Will continue to follow Discussed with Dr Escoto Procedures Date of Service Date of Service: 12/29/23
[2023-12-29] MEDS: fentaNYL citrate/PF 100 MCG/2 ML VIAL IVPUSH (15:24)
--- NOTE | 2023-12-29 16:24 | PM.IMHP ---
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 To follow with dr Caballero as OP for decortication but never materialized. In ED found to have DANIELA w Cr of 11 from baseline of 1.4 with associated hypokalemia and hypocalcemia. significant metabolic acidosis with low CO2. CXR showing worsening pneumothorax. patient reports worsening respiratory status but she is more concerned about uncontrolled pain in her hip. Will be admitted for further work up and treatment. Oncology and nephrology consults. Review of Systems Review of Systems: No fever, chills but has generalized weakness No chest pain, palpitation increase shortness of breath with no coughing reporting no abdominal pain but has nausea or vomiting No urinary symptoms No any rash or wounds PMFSH Medical History Breast cancer metastasized to bone Family History Sister Pancreatic cancer Maternal Grandmother Cervical cancer Social History Household Members: Spouse Patient Tobacco Use Status: Former Tobacco user Tobacco use type: Cigarette e-Cigarette/Vaping Use: Never Used Second Hand Smoke Exposure: No Advance Directives: No Advance Directives Information Provided: Yes Do you have a plan to hurt others: No Plan service: No Current occupational status: retired Meds Allergies Allergy/AdvReac Type Severity Reaction Status Date / Time No Known Allergies Allergy Verified 12/29/23 12:16 Active Medications: Current Medications Potassium Chloride (Potassium Chloride/H20) 10 meq in 100 mls @ 100 mls/hr IV Q1H BRANDON Stop: 12/29/23 18:14 Last Admin: 12/29/23 15:41 Dose: 100 mls/hr Calcium Gluconate (Calcium Gluconate) 2 gm in 100 mls @ 50 mls/hr IV ONCE ONE Stop: 12/29/23 18:21 Home Medications ?Medication ?Instructions ?Recorded ?Confirmed ?Last Taken ?Type hydrochlorothiazide 25 mg tablet 25 mg PO DAILY 12/09/23 12/17/23 Unknown History letrozole 2.5 mg tablet 2.5 mg PO DAILY 12/09/23 12/17/23 Unknown History lisinopril 10 mg tablet 10 mg PO DAILY 12/09/23 12/17/23 Unknown History ondansetron HCl 4 mg tablet 4 mg PO Q8H PRN nausea/vomiting 12/09/23 12/17/23 Unknown History zolpidem 5 mg tablet 2.5 - 5 mg PO BEDTIME PRN insomnia 12/09/23 12/17/23 Unknown History scopolamine base 1 mg over 3 days 1 patch topical Q3D 12/29/23 Unknown History transdermal patch (Transderm-Scop) Physical Exam Vital Signs and Narrative: Vital Signs: Last Vital Signs Temp 97.7 F 12/29/23 14:16 Pulse 107 H 12/29/23 15:26 Resp 24 H 12/29/23 15:26 BP 110/72 12/29/23 15:26 Pulse Ox 95 12/29/23 14:16 O2 Del Method Room Air 12/29/23 14:16 BMI result Body Mass Index 32.6 Const: Other: Constitutional : Awake, interactive, in significant distress Neck : Normal inspection, Supple Cardiovascular : RRR, no JVP, no lower extremity edema Respiratory :decrease air entry over the right lung, no crackles, Gastrointestinal: soft, lax, Normal bowel sounds, Non tender Skin : Warm, Dry Neurological : Alert & oriented x3, No focal deficit Results Labs 12/29/23 12:37 12/29/23 Unknown Labs: Laboratory Results - last 24 hr 12/29/23 12/29/23 12/29/23 12:34 12:37 12:39 MCV 84.1 MCH 30.1 MCHC 35.8 H RDW 14.9 Plt Count 238 D MPV 9.3 L Immature Gran % (Auto) Cancelled Neut % (Auto) Cancelled Lymph % (Auto) Cancelled Patrick % (Auto) Cancelled Eos % (Auto) Cancelled Baso % (Auto) Cancelled Lymph # (Auto) Cancelled Patrick # (Auto) Cancelled Eos # (Auto) Cancelled Baso # (Auto) Cancelled Abs Immat Gran (auto) Cancelled Absolute Neuts (auto) Cancelled Absolute Nucleated RBC 0.000 Nucleated RBC % (auto) 0.0 Neutrophils % (Manual) 65 Band Neutrophils % 9 H Lymphocytes % (Manual) 18 L Monocytes % (Manual) 5 Eosinophils % (Manual) 2 Basophils % (Manual) 1 Abs Neuts (Manual) 2.1 Lymphocytes # (Manual) 0.5 L Monocytes # (Manual) 0.1 Eosinophils # (Manual) 0.1 Toxic Granulation PRESENT Toxic Vacuolation PRESENT Platelet Estimate NORMAL Plt Morphology Comment NORMAL RBC Morphology NOTED Carolina Cells 2+ (3-5) PT 15.5 H INR 1.3 H APTT 31.4 VBG pH VBG pCO2 VBG pO2 VBG HCO3 VBG O2 Saturation VBG Base Excess Anion Gap 31 H Estim Creat Clear Calc 4.8 Estimated GFR 3 Random Glucose 136 H Lactic Acid 1.9 Calcium 6.2 L D Magnesium Total Bilirubin 0.4 Direct Bilirubin AST 105 H ALT 40 H Alkaline Phosphatase 84 Troponin I High Sens 105.7 H* Total Protein 8.1 H Albumin 3.8 Lipase 23 Blood Type Antibody Screen 12/29/23 12/29/23 12/29/23 13:00 13:16 Unknown MCV MCH MCHC RDW Plt Count MPV Immature Gran % (Auto) Neut % (Auto) Lymph % (Auto) Patrick % (Auto) Eos % (Auto) Baso % (Auto) Lymph # (Auto) Patrick # (Auto) Eos # (Auto) Baso # (Auto) Abs Immat Gran (auto) Absolute Neuts (auto) Absolute Nucleated RBC Nucleated RBC % (auto) Neutrophils % (Manual) Band Neutrophils % Lymphocytes % (Manual) Monocytes % (Manual) Eosinophils % (Manual) Basophils % (Manual) Abs Neuts (Manual) Lymphocytes # (Manual) Monocytes # (Manual) Eosinophils # (Manual) Toxic Granulation Toxic Vacuolation Platelet Estimate Plt Morphology Comment RBC Morphology Carolina Cells PT INR APTT VBG pH 7.24 L VBG pCO2 24 VBG pO2 42 VBG HCO3 11 L VBG O2 Saturation 66.0 VBG Base Excess -14.4 Anion Gap 29 H Estim Creat Clear Calc 4.8 Estimated GFR 3 Random Glucose 132 H Lactic Acid 1.2 Calcium 5.9 L* Magnesium 2.5 Total Bilirubin 0.4 Direct Bilirubin 0.2 AST 92 H ALT 35 H Alkaline Phosphatase 74 Troponin I High Sens Total Protein 7.2 Albumin 3.4 L Lipase Blood Type O Positive Antibody Screen NEGATIVE Imaging Radiologist's Impressions: Impressions Chest X-Ray 12/29/23 13:20 IMPRESSION: Concerning right-sided hydropneumothorax with a partially collapsed right lung. Chronic interstitial lung disease superimposed malignancy cannot be entirely excluded. 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 Intractable nausea and vomiting 2/2 medication side effect PAtient on Aromatase inhibitor and Abemaciclib, reported N\V after starting the treatment Zofran prn IV fluids Clear diet when tolerated Oncology consult for plan of care DANIELA 2/2 prerenal vs ATN complicated with metabolic acidosis likely ATN from dehydration check urine studies IVF Nephrology consult follow I\O Acute hypokalemia replacement given, monitor response Acute Hypocalecemia replacement given, monitor response Bone metastasis Denosumab per Oncology Right pneumothorax Worsening per XR Patient on room air get Thoracic surgery eval DVT PPx Heparin The patietn will need 2 overnight stay for treatment of acute kidney injury and improvement of oral intake pending nephrology follow up Quality Stroke Does the patient have a stroke diagnosis?: No VTE Prior VTE?: No VTE Risk Level:: Medical - moderate - high VTE Device Contraindication: Treatment Not Indicated VTE Drug Contraindication: N/A - Med Ordered
[2023-12-29 16:28] LABS: B Type Natriuretic Peptide 98 pg/mL (<100)
[2023-12-29] MEDS: Calcium Gluconate/NaCl,Iso-Osm 2 GM/100 ML PLAST..BAG IV (17:22)
[2023-12-29] MEDS: Lactated Ringers 1,000 ML 100 ML IVCONT (17:28)
[2023-12-29] MEDS: Morphine Sulfate 4 MG/ML CARTRIDGE 2 MG IVPUSH ×3 (17:28→22:37)
[2023-12-29 18:06] LABS: Appearance Urine Turbid; Color Urine Dark Yellow; Glucose Urine UA Negative (Negative); Leukocyte Esterase Urine Large (3+) (Negative); Nitrite Urine Negative (Negative); Specific Gravity - Urine 1.025 (1.005-1.025); UMIC TRIGGER UACC YES; Urine Blood Moderate (2+) (Negative); Urine Ketones Negative (Negative); Urine Protein 300 (3+) mg/dL (Neg-Trace)
--- NOTE | 2023-12-29 18:08 | PHA.MEDREC ---
Addendum entered by Josue Swan RPh 12/29/23 18:47: Reviewed by [facility] Original Note: Pharmacy Consult ? Medication Reconciliation Pharmacy has completed the medication reconciliation. Confirmed medications with sandras at bedside. The confirmed his 's Verzenio (Abemaciclib) 200mg tab BID. He confirmed his has been taking Oxycodone 5mg tabs from a script they had from October the last few days for her pain and took one last night. The patient confirmed she has been taking Tylenol at home and her confirmed she has been taking a Tylenol 500mg tab as needed for her pain as well but has not taken one in a few days. He confirmed she took all her medications yesterday and was not able to take any this morning due to how the patient has been feeling.
[2023-12-29 18:19] LABS: Creatinine Clr Calc Pharmacy 5.2; Estimated Glomerular Filt Rate 4
[2023-12-29 18:24] LABS: Anion Gap 30 (12-20); Blood Urea Nitrogen 145 mg/dL (9-16); Calcium 5.8 mg/dL (8.4-10.2); Carbon Dioxide 9 mmol/L (22-29); Chloride 98 mmol/L (96-108); Glucose Random 120 mg/dL (60-115); Potassium 2.6 mmol/L (3.3-5.1); Sodium 134 mmol/L (135-145)
[2023-12-29 18:29] LABS: Bacteria Urine 3+ (None Seen); Hyaline Casts Urine 0-2 /LPF (0-2); RBC Urine >20 /HPF (0-2); UACC Culture Trigger YES; WBC Urine >50 /HPF (0-5)
--- NOTE | 2023-12-29 19:03 | PC.NURSE ---
this rn assumed care of pt, pt alert but confused. pt assisted off of bedpan at this time. pt denies pain, vss. sinus tachy 100-105bpm.
[2023-12-29] MEDS: Sodium Bicarbonate 8.4% 50 MEQ/50 ML SYRINGE IVPUSH (19:21)
[2023-12-29] MEDS: dexAMETHasone sod phosphate 4 MG/ML VIAL 12 MG IVPUSH (19:24)
--- NOTE | 2023-12-29 19:39 | PC.NURSE ---
pt noted to be vomiting and reporting nausea, pt also reports 7/10 body pain at this time. pt medicated per apr. pt unable to tolerate PO at this time, provider aware.
--- NOTE | 2023-12-29 20:12 | PC.NURSE ---
pt payal on phone for update at this time, pt given pt phone to speak to payal at this time.
--- NOTE | 2023-12-29 21:14 | PC.NURSE ---
pharmacy to bring up potassium at this time.
[2023-12-29] MEDS: Heparin Sodium,Porcine 5,000 UNIT/ML VIAL 5000 UNIT SUBCUT (21:19)
--- NOTE | 2023-12-29 23:18 | PC.NURSE ---
pt previously medicated with prn pain medication, pt reports she is still having pain and is shouting at this time. dr.vali evans.
[2023-12-29] MEDS: LORazepam 2 MG/ML VIAL 1 MG IVPUSH (23:45)
[2023-12-30] VITALS (45 sets, daily range): BP systolic 70–130; BP diastolic 42–91; PULSE 99–136; RESP 11–28; TEMP 36.2–37.6; O2SAT 90–98; BMI 32.5
--- NOTE | 2023-12-30 00:31 | PM.EVENT ---
Event Note Date of Service: 12/30/23 Event Note: Nurse reported hypotension. Ordered crystalloid bolus. Noted urine concerning for UTI. Ordered ceftriaxone and obtaining lactic acid. Time Spent With Patient Time: Total time managing care of this patient today ____ minutes.
[2023-12-30] MEDS: cefTRIAXone sodium 1 GM VIAL IVPUSH (00:40)
[2023-12-30] MEDS: Lactated Ringers 1,000 ML 999 ML IV ×2 (00:42→18:17)
--- NOTE | 2023-12-30 00:43 | PC.NURSE ---
pt noted to be hypotensive at this time, called to bedside, pt medicated per mar. see vs.
[2023-12-30] MEDS: Potassium Chloride/H20 10 MEQ/100 ML PIGGYBACK 100 MEQ IV ×9 (00:49→22:26)
[2023-12-30] MEDS: Albuterol/Iprat 2.5/0.5MG 3 ML AMPUL.NEB INHALE ×2 (00:50→03:50)
[2023-12-30 01:14] LABS: Venous Blood Gas Refer to POC result
[2023-12-30 01:20] LABS: VBG Base Excess -15.9 mmol/L; VBG HCO3 9 mmol/L (22-26); VBG pCO2 20 mmHg; VBG pH 7.25 (7.32-7.43); VBG pO2 85 mmHg
[2023-12-30 01:31] LABS: Lactic Acid 1.4 mmol/L (0.5-2.0)
[2023-12-30 01:37] LABS: B Type Natriuretic Peptide 524 pg/mL (<100)
[2023-12-30 02:12] LABS: Anion Gap 29 (12-20); Carbon Dioxide 7 mmol/L (22-29); Chloride 103 mmol/L (96-108); Creatinine Clr Calc Pharmacy 5.6; Estimated Glomerular Filt Rate 4; Glucose Random 118 mg/dL (60-115); Potassium 3.7 mmol/L (3.3-5.1); Sodium 135 mmol/L (135-145)
--- NOTE | 2023-12-30 02:12 | PC.NURSE ---
pt noted to de sat to 89%, pt tolerating oxymax, pt placed on 2L. dr.vali evans.
[2023-12-30 02:20] LABS: Blood Urea Nitrogen 137 mg/dL (9-16)
[2023-12-30] MEDS: Sodium Bicarbonate 8.4% 50 MEQ/50 ML SYRINGE IVPUSH (02:34)
--- NOTE | 2023-12-30 02:52 | PM.EVENT ---
Event Note Date of Service: 12/30/23 Event Note: BP improved with crystalloid bolus but noted significant dyspnea and tachypnea. Reduced urine output overnight. Bilateral crackles upon examination. BNP found to be elevated. Concern for iatrogenic pulmonary edema in the setting of crystalloid resuscitation and reduced urine output. Will hold LR and order IV Lasix. Unable to order CPAP as previous x-ray with right-sided hydropneumothorax. CT chest pending Time Spent With Patient Time: Total time managing care of this patient today ____ minutes.
--- NOTE | 2023-12-30 03:05 | PC.NURSE ---
rectal probe placed at this time, 400ml dark brown urine emptied from sherman, provider aware of vitals.
[2023-12-30] MEDS: Furosemide 100 MG/10 ML VIAL 80 MG IVPUSH (03:10)
--- NOTE | 2023-12-30 03:50 | PC.NURSE ---
pt noted to be wheezing, RT called to bedside for treatment.
--- NOTE | 2023-12-30 03:59 | PC.NURSE ---
provider aware of pt BP at this time, pt denies any complaints at this time.
[2023-12-30] MEDS: Racepinephrine HCL 0.5 ML VIAL.NEB INHALE (04:17)
--- NOTE | 2023-12-30 04:21 | PM.EVENT ---
Event Note Date of Service: 12/30/23 Event Note: Nurse reported hypotension. Discussed with general foundry worker Dr. Herrera and will transfer the patient to ICU for closer monitoring and pressor needs. ER provider to do pigtail for hydropneumothorax Time Spent With Patient Time: Total time managing care of this patient today ____ minutes.
--- NOTE | 2023-12-30 05:00 | PC.NURSE ---
at bedside placing Sam Pluerx chest tube, pt tolerated well. pt sating 95-98% on 2L oxymax, sinus tachy 130-135bpm.
[2023-12-30] MEDS: Norepinephrine Bitartrate/D5W 8 MG/250 ML PLAST..BAG 7.57 MG IVCONT (05:29)
[2023-12-30] MEDS: Sodium Bicarbonate 8.4% 150 MEQ in Dextrose 5 % 850 ML 50 MEQ IV (05:32)
--- NOTE | 2023-12-30 06:00 | PM.CCN ---
Critical Care Event Note Summary Date of Service: 12/30/23 Code activated: No Narrative: This case had a high probability of a clinically significant, sudden, or life threatening deterioration of this patient's condition which required my full and direct attention, intervention and personal management. Critical Care Time (minutes): 60 Comment: This unfortunate 63-year-old female who has an underlying history of breast cancer with metastasis to spine abdomen ureter and hips followed by Dr. Ochoa who has been treated with abemaciclib; history of chronic pain, insomnia, hypertension had been admitted to the hospital 1 day ago after presenting to the emergency room with complaints of 3-4 days' worth of nausea, vomiting and failure to thrive, generalized malaise. ?The workup in the emergency room revealed the patient had significant acute kidney injury with creatinine of 12 when her baseline is 1.4, associated low calcium and potassium and significant metabolic acidosis along with a worsening hydropneumothorax of which she has been treated in the past by Dr. 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 A consultation had been placed to Nephrology who has reported advice was to hydrate the patient given that she probably was suffering from prerenal azotemia and ATN complicated with metabolic acidosis, electrolyte replacement was done; her chest CT, abdomen pelvis without contrast revealed right hydropneumothorax and innumerable sclerotic lytic metastasis. ?The patient's urinalysis appeared to be positive and consistent with a urinary tract infection however no antibiotics have been started. Around 04:00 o'clock in the morning, we were contacted by the internal medicine physician who reported that the patient was ongoing leak hypotensive despite of 4 L of IV fluids.? In addition had requested the ER physician to place a chest tube to help with the hydropneumothorax, started the patient on Rocephin and kindly asked to transfer the patient to the ICU for further treatment as she will need vasopressors. Patient's chart was reviewed in detail, patient's vital signs shows slight improvement of her blood which some point was as low as 79/49 intermittently now at 104/60 on peripheral vasopressors, tachycardic at 01:30 and tachypneic at 28 her creatinine appears to be coming down currently a 10.09. The patient's white count is 2.9 with 9% bands and 65% neutrophils with a manual calculated ANC of 2400 therefore there is no neutropenia.? There is however presence of toxic granulocytes and toxic vacuolation. ?Laboratories will be repeated this morning, I will place the patient on a bicarb drip, continue vasopressors, continue with Rocephin, order albumin, I will avoid Lasix at this point and trust that increasing systemic perfusion will help her self diurese. ?The patient should continue with Nephrology and Cardiothoracic care as well as a revised oncology opinion. ?Avoid nephrotoxin and continue to hold hydrochlorothiazide, lisinopril which could have been the offending agents for her renal insufficiency. Will discontinue Reglan and Morphine, use Zofran and Dilaudid instead. Will place the chest tube to water seal while awaiting Card Thracic consult, pt is not hypoxic. After talking to the patient in detail, the patient is aware enough of what is happening and she would like to be DNR, DNI.? She appears to be in pain, will give her some Dilaudid and further definition of her goals of care should be a multidisciplinary discussion in the near future; the patient has diffuse metastatic cancer and I wonder if everything being done is more harmful than beneficial at this point. Critical care time used for critical evaluation of this patient, diagnosis, treatment and coordination of care, review her records and documentation TOTAL CRITICAL CARE TIME? 60? MIN . discussion and coordination with consultants, completely separate from any procedures performed. . Patient's care was discussed in detail with Dr. Herrera.? He is aware of all the above as well as the plan of care for this patient. .
--- NOTE | 2023-12-30 06:03 | PC.NURSE ---
pt transported to ICU by this RN, verbal report given to Dede HOWELL.
[2023-12-30] MEDS: HYDROmorphone HCl 0.5 MG/0.5 ML SYRINGE IVPUSH ×3 (06:11→21:28)
--- NOTE | 2023-12-30 07:34 | HO.THORCONS ---
History of Present Illness Consult details Consult date: 12/30/23 Narrative: Patient is an unfortunate 63-year-old female with a plethora of comorbidities including stage IV/advanced metastatic breast cancer. She apparently has had among other issues a right pleural effusion and does have this drained. She had a trapped lung and presents here with among other issues a right pneumothorax. ICU team placed a pigtail catheter tube with moderate improvement of the pneumothorax. In the meantime, patient has been made DNR DNI. Thoracic surgical consultation regarding right pneumothorax. Chart was reviewed and patient evaluate [facility] Past Medical History Medical History Breast cancer metastasized to bone Family History Family History Sister Pancreatic cancer Maternal Grandmother Cervical cancer Social History Social History Household Members: Spouse Patient Tobacco Use Status: Former Tobacco user Tobacco use type: Cigarette e-Cigarette/Vaping Use: Never Used Second Hand Smoke Exposure: No service: No Current occupational status: [employer] Allergies Allergy/AdvReac Type Severity Reaction Status Date / Time No Known Allergies Allergy Verified 12/29/23 12:16 Active Medications: Current Medications Acetaminophen (Acetaminophen 325 Mg Tablet) 650 mg PO Q6H PRN PRN Reason: Pain, Mild (Pain Scale 1-3), fever or headache Albuterol/Ipratropium (Albuterol/Iprat 2.5/0.5mg 3 Ml Ampul.Neb) 3 ml INHALE Q4H PRN PRN Reason: Wheezing Last Admin: 12/30/23 03:50 Dose: 3 ml Calcium Carbonate (Calcium Carbonate 750 Mg Tab.Chew) 750 mg PO Q4H PRN PRN Reason: Heartburn Ceftriaxone Sodium (Ceftriaxone Sodium 1 Gm Vial) 1 gm IVPUSH Q24H [facility] Last Admin: 12/30/23 00:40 Dose: 1 gm Heparin Sodium (Porcine) (Heparin Sodium,Porcine 5,000 Unit/Ml Vial) 5,000 unit SUBCUT Q12H [facility] Last Admin: 12/29/23 21:19 Dose: 5,000 unit Hydromorphone HCl (Hydromorphone Hcl 0.5 Mg/0.5 Ml Syringe) 0.5 mg IVPUSH Q2H PRN; Protocol PRN Reason: Pain, Moderate(Pain Scale 4-6) Last Admin: 12/30/23 06:11 Dose: 0.5 mg Norepinephrine Bitartrate (Levophed) 8 mg in 250 mls @ 0 mls/hr IVCONT .Q0M [facility]; Protocol Last Titration: 12/30/23 07:01 Dose: 0.09 mcg/kg/min, 13.63 mls/hr Sodium Bicarbonate 150 meq/ (Dextrose) 1,000 mls @ 50 mls/hr IV .Q20H [facility] Last Admin: 12/30/23 05:32 Dose: 50 mls/hr Magnesium Hydroxide (Milk Of Magnesia 30 Ml Oral.Susp) 30 ml PO DAILY PRN PRN Reason: Constipation Melatonin (Melatonin 3 Mg Tablet) 6 mg PO BEDTIME PRN PRN Reason: Insomnia Ondansetron HCl (Ondansetron Hcl 4 Mg/2 Ml Vial) 4 mg IVPUSH Q8H PRN PRN Reason: Nausea and Vomiting Sodium Chloride (0.9 % Sodium Chloride Flush 3 Ml Syringe) [facility] Last Admin: 12/30/23 00:11 Dose: Not Given Home Medications ?Medication ?Instructions ?Recorded ?Confirmed ?Last Taken ?Type hydrochlorothiazide 25 mg tablet 25 mg PO DAILY 12/09/23 12/29/23 12/28/23 History letrozole 2.5 mg tablet 2.5 mg PO DAILY 12/09/23 12/29/23 12/28/23 History lisinopril 10 mg tablet 10 mg PO DAILY 12/09/23 12/29/23 12/28/23 History zolpidem 5 mg tablet 5 mg PO BEDTIME PRN insomnia 12/09/23 12/29/23 12/28/23 History acetaminophen 500 mg tablet 500 mg PO DAILY PRN Pain 12/29/23 12/29/23 Unknown History ondansetron HCl 8 mg tablet 8 mg PO Q8H PRN Nausea And Vomiting 12/29/23 12/29/23 Unknown History oxycodone 5 mg tablet 5 mg PO DAILY PRN Pain 12/29/23 12/29/23 12/28/23 History Physical Exam Vital Signs: Vital Signs: Last Vital Signs Temp 99.5 F 12/30/23 06:00 Pulse 102 H 12/30/23 07:01 Resp 18 12/30/23 07:00 BP 70/55 L 12/30/23 07:01 Pulse Ox 97 12/30/23 07:00 O2 Del Method Oxymask 12/30/23 07:00 O2 Flow Rate 2 12/30/23 07:00 BMI result Body Mass Index 32.5 Const: Other: Patient has been sedated and is minimally communicative. Spoke with the ICU covering clinician as well as the patient's nurse. Apparently she is in significant pain secondary to her advanced metastatic disease to bone. She is on oxygen to maintain saturations Chest: Other: Chest tube intact. Chest x-ray as noted above demonstrates modest improvement of right pneumothorax. Minimal output and Pleur-evac Results Labs 12/29/23 12:37 12/30/23 01:06 Labs: Abnormal lab results 12/29/23 12/29/23 12/29/23 Range/Units 12:34 12:37 13:16 WBC 2.9 L (4.8-10.8) X10*3/uL RBC 4.09 L (4.20-5.50) X10*6/uL Hct 34.4 L (37.0-47.0) % MCHC 35.8 H (31.0-35.0) g/dl MPV 9.3 L (9.4-12.3) fL Band Neutrophils % 9 H (3-5) % Lymphocytes % (Manual) 18 L (20-40) % Lymphocytes # (Manual) 0.5 L (1.2-4.9) X10*3/uL PT 15.5 H (10.9-12.4) SEC INR 1.3 H (0.9-1.1) VBG pH 7.24 L (7.32-7.43) VBG HCO3 11 L (22-26) mmol/L Sodium 132 L (135-145) mmol/L Potassium 2.4 L* D (3.3-5.1) mmol/L Chloride 91 L (96-108) mmol/L Carbon Dioxide 12 L (22-29) mmol/L Anion Gap 31 H (12-20) BUN > 125 H (9-16) mg/dL Creatinine 12.03 H* (0.5-1.4) mg/dL Random Glucose 136 H (60-115) mg/dL Calcium 6.2 L D (8.4-10.2) mg/dL AST 105 H (5-31) U/L ALT 40 H (0-31) U/L Troponin I High Sens 105.7 H* (<3.5-17.0) ng/L B-Natriuretic Peptide (<100) pg/mL Total Protein 8.1 H (6.5-8.0) g/dL Albumin (3.5-5.0) g/dL Urine Protein (Neg-Trace) mg/dL Urine Blood (Negative) Ur Leukocyte Esterase (Negative) Urine RBC (0-2) /HPF Urine WBC (0-5) /HPF 12/29/23 12/29/23 12/29/23 Range/Units 17:36 18:00 Unknown WBC (4.8-10.8) X10*3/uL RBC (4.20-5.50) X10*6/uL Hct (37.0-47.0) % MCHC (31.0-35.0) g/dl MPV (9.4-12.3) fL Band Neutrophils % (3-5) % Lymphocytes % (Manual) (20-40) % Lymphocytes # (Manual) (1.2-4.9) X10*3/uL PT (10.9-12.4) SEC INR (0.9-1.1) VBG pH (7.32-7.43) VBG HCO3 (22-26) mmol/L Sodium 134 L 133 L (135-145) mmol/L Potassium 2.6 L* 2.4 L* (3.3-5.1) mmol/L Chloride 93 L (96-108) mmol/L Carbon Dioxide 9 L* D 13 L (22-29) mmol/L Anion Gap 30 H 29 H (12-20) BUN 145 H 155 H (9-16) mg/dL Creatinine 11.06 H* 11.65 H* (0.5-1.4) mg/dL Random Glucose 120 H 132 H (60-115) mg/dL Calcium 5.8 L* 5.9 L* (8.4-10.2) mg/dL AST 92 H (5-31) U/L ALT 35 H (0-31) U/L Troponin I High Sens (<3.5-17.0) ng/L B-Natriuretic Peptide (<100) pg/mL Total Protein (6.5-8.0) g/dL Albumin 3.4 L (3.5-5.0) g/dL Urine Protein 300 (3+) H (Neg-Trace) mg/dL Urine Blood Moderate (2+) H (Negative) Ur Leukocyte Esterase Large (3+) H (Negative) Urine RBC >20 H (0-2) /HPF Urine WBC >50 H (0-5) /HPF 12/30/23 12/30/23 Range/Units 01:06 01:14 WBC (4.8-10.8) X10*3/uL RBC (4.20-5.50) X10*6/uL Hct (37.0-47.0) % MCHC (31.0-35.0) g/dl MPV (9.4-12.3) fL Band Neutrophils % (3-5) % Lymphocytes % (Manual) (20-40) % Lymphocytes # (Manual) (1.2-4.9) X10*3/uL PT (10.9-12.4) SEC INR (0.9-1.1) VBG pH 7.25 L (7.32-7.43) VBG HCO3 9 L (22-26) mmol/L Sodium (135-145) mmol/L Potassium (3.3-5.1) mmol/L Chloride (96-108) mmol/L Carbon Dioxide 7 L* D (22-29) mmol/L Anion Gap 29 H (12-20) BUN 137 H (9-16) mg/dL Creatinine 10.09 H* (0.5-1.4) mg/dL Random Glucose 118 H (60-115) mg/dL Calcium 6.0 L* (8.4-10.2) mg/dL AST (5-31) U/L ALT (0-31) U/L Troponin I High Sens (<3.5-17.0) ng/L B-Natriuretic Peptide 524 H (<100) pg/mL Total Protein (6.5-8.0) g/dL Albumin (3.5-5.0) g/dL Urine Protein (Neg-Trace) mg/dL Urine Blood (Negative) Ur Leukocyte Esterase (Negative) Urine RBC (0-2) /HPF Urine WBC (0-5) /HPF Short CBC 12/29/23 Range/Units 12:37 WBC 2.9 L (4.8-10.8) X10*3/uL Hgb 12.3 (12.0-16.0) g/dl Hct 34.4 L (37.0-47.0) % Plt Count 238 D (160-400) X10*3/uL BMP 12/29/23 12/29/23 12/29/23 12:34 17:36 Unknown Sodium 132 L 134 L 133 L Potassium 2.4 L* D 2.6 L* 2.4 L* Chloride 91 L 98 93 L Carbon Dioxide 12 L 9 L* D 13 L BUN > 125 H 145 H 155 H Creatinine 12.03 H* 11.06 H* 11.65 H* Calcium 6.2 L D 5.8 L* 5.9 L* 12/30/23 01:06 Sodium 135 Potassium 3.7 D Chloride 103 Carbon Dioxide 7 L* D BUN 137 H Creatinine 10.09 H* Calcium 6.0 L* Liver Function 12/29/23 12/29/23 Range/Units 12:34 Unknown Total Bilirubin 0.4 0.4 (0.0-1.0) mg/dL Direct Bilirubin 0.2 (0.0-0.5) mg/dL AST 105 H 92 H (5-31) U/L ALT 40 H 35 H (0-31) U/L Alkaline Phosphatase 84 74 (39-117) U/L Albumin 3.8 3.4 L (3.5-5.0) g/dL Urine 12/29/23 Range/Units 18:00 Urine Color Dark Yellow Urine Appearance Turbid Urine pH 5.0 (5.0-9.0) Ur Specific [place] 1.025 (1.005-1.025) Urine Protein 300 (3+) H (Neg-Trace) mg/dL Urine Glucose (UA) Negative (Negative) mg/dL All other labs normal. Assessment and Plan (1) Pneumothorax, right: Status: Acute (2) Breast cancer metastasized to bone: Qualifiers: Laterality: unspecified laterality Qualified Code(s): C50.919 - Malignant neoplasm of unspecified site of unspecified female breast; C79.51 - Secondary malignant neoplasm of bone Status: Acute (3) Adult failure to thrive: Status: Acute Plan At present, no acute thoracic surgical intervention required. ICU provider said a multidisciplinary family meeting is scheduled for today to discuss patient is status and goals of treatment. Procedures Date of Service Date of Service: 12/30/23
--- NOTE | 2023-12-30 08:20 | P.PNNP_ITS ---
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 Presented 12/28 with shortness of breath, failure to thrive (not eating for 3-4 days but has been drinking lots of bottled water per fiance), increased pain (back, lower abdomen and hip). Fiance is Delmar. creatinine on 12/16 was 1.71 labs on 12/28: Na 133, K 2.4, CO2 13, AG 29, BUN 155, creatinine 11.65 12/29: CT abdomen/pelvis 12/28 kidneys/ureters unremarkable without hydronephrosis, hydroureter, calculi. Pt awakens to voice but is not conversant, mumbles/groans, lethargic. Physical Exam 2 Vital Signs: Vital Signs: Last Vital Signs Temp 99.2 F 12/30/23 08:00 Pulse 116 H 12/30/23 09:24 Resp 18 12/30/23 09:00 BP 108/75 12/30/23 09:24 Pulse Ox 95 12/30/23 09:00 O2 Del Method Oxymask 12/30/23 09:00 O2 Flow Rate 2 12/30/23 09:00 BMI result Body Mass Index 32.5 Objective Data Labs 12/30/23 11:08 12/30/23 14:33 Labs: Laboratory Results - last 24 hr 12/29/23 12/29/23 12/29/23 12:34 12:37 12:39 WBC 2.9 L RBC 4.09 L Hgb 12.3 Hct 34.4 L MCV 84.1 MCH 30.1 MCHC 35.8 H RDW 14.9 Plt Count 238 D MPV 9.3 L Immature Gran % (Auto) Cancelled Neut % (Auto) Cancelled Lymph % (Auto) Cancelled [place] % (Auto) Cancelled Eos % (Auto) Cancelled Baso % (Auto) Cancelled Lymph # (Auto) Cancelled [place] # (Auto) Cancelled Eos # (Auto) Cancelled Baso # (Auto) Cancelled Abs Immat Gran (auto) Cancelled Absolute Neuts (auto) Cancelled Absolute Nucleated RBC 0.000 Nucleated RBC % (auto) 0.0 Neutrophils % (Manual) 65 Band Neutrophils % 9 H Lymphocytes % (Manual) 18 L Monocytes % (Manual) 5 Eosinophils % (Manual) 2 Basophils % (Manual) 1 Abs Neuts (Manual) 2.1 Lymphocytes # (Manual) 0.5 L Monocytes # (Manual) 0.1 Eosinophils # (Manual) 0.1 Toxic Granulation PRESENT Toxic Vacuolation PRESENT Platelet Estimate NORMAL Plt Morphology Comment NORMAL RBC Morphology NOTED [place] Cells 2+ (3-5) PT 15.5 H INR 1.3 H APTT 31.4 VBG pH VBG pCO2 VBG pO2 VBG HCO3 VBG O2 Saturation VBG Base Excess Sodium 132 L Potassium 2.4 L* D Chloride 91 L Carbon Dioxide 12 L Anion Gap 31 H BUN > 125 H Creatinine 12.03 H* Estim Creat Clear Calc 4.8 Estimated GFR 3 Random Glucose 136 H Lactic Acid 1.9 Calcium 6.2 L D Magnesium Total Bilirubin 0.4 Direct Bilirubin AST 105 H ALT 40 H Alkaline Phosphatase 84 Troponin I High Sens 105.7 H* B-Natriuretic Peptide 98 Total Protein 8.1 H Albumin 3.8 Lipase 23 Urine Color Urine Appearance Urine pH Ur Specific Rickman Urine Protein Urine Glucose (UA) Urine Ketones Urine Blood Urine Nitrite Ur Leukocyte Esterase Urine RBC Urine WBC Ur Squamous Epith Cells Urine Bacteria Hyaline Casts Blood Type Antibody Screen 12/29/23 12/29/23 12/29/23 13:00 13:16 17:36 WBC RBC Hgb Hct MCV MCH MCHC RDW Plt Count MPV Immature Gran % (Auto) Neut % (Auto) Lymph % (Auto) [place] % (Auto) Eos % (Auto) Baso % (Auto) Lymph # (Auto) [place] # (Auto) Eos # (Auto) Baso # (Auto) Abs Immat Gran (auto) Absolute Neuts (auto) Absolute Nucleated RBC Nucleated RBC % (auto) Neutrophils % (Manual) Band Neutrophils % Lymphocytes % (Manual) Monocytes % (Manual) Eosinophils % (Manual) Basophils % (Manual) Abs Neuts (Manual) Lymphocytes # (Manual) Monocytes # (Manual) Eosinophils # (Manual) Toxic Granulation Toxic Vacuolation Platelet Estimate Plt Morphology Comment RBC Morphology Joyce Cells PT INR APTT VBG pH 7.24 L VBG pCO2 24 VBG pO2 42 VBG HCO3 11 L VBG O2 Saturation 66.0 VBG Base Excess -14.4 Sodium 134 L Potassium 2.6 L* Chloride 98 Carbon Dioxide 9 L* D Anion Gap 30 H BUN 145 H Creatinine 11.06 H* Estim Creat Clear Calc 5.2 Estimated GFR 4 Random Glucose 120 H Lactic Acid 1.2 Calcium 5.8 L* Magnesium Total Bilirubin Direct Bilirubin AST ALT Alkaline Phosphatase Troponin I High Sens B-Natriuretic Peptide Total Protein Albumin Lipase Urine Color Urine Appearance Urine pH Ur Specific Rick[place] Urine Protein Urine Glucose (UA) Urine Ketones Urine Blood Urine Nitrite Ur Leukocyte Esterase Urine RBC Urine WBC Ur Squamous Epith Cells Urine Bacteria Hyaline Casts Blood Type O Positive Antibody Screen NEGATIVE 12/29/23 12/29/23 12/30/23 18:00 Unknown 01:06 WBC RBC Hgb Hct MCV MCH MCHC RDW Plt Count MPV Immature Gran % (Auto) Neut % (Auto) Lymph % (Auto) [place] % (Auto) Eos % (Auto) Baso % (Auto) Lymph # (Auto) [place] # (Auto) Eos # (Auto) Baso # (Auto) Abs Immat Gran (auto) Absolute Neuts (auto) Absolute Nucleated RBC Nucleated RBC % (auto) Neutrophils % (Manual) Band Neutrophils % Lymphocytes % (Manual) Monocytes % (Manual) Eosinophils % (Manual) Basophils % (Manual) Abs Neuts (Manual) Lymphocytes # (Manual) Monocytes # (Manual) Eosinophils # (Manual) Toxic Granulation Toxic Vacuolation Platelet Estimate Plt Morphology Comment RBC Morphology Joyce Cells PT INR APTT VBG pH VBG pCO2 VBG pO2 VBG HCO3 VBG O2 Saturation VBG Base Excess Sodium 133 L 135 Potassium 2.4 L* 3.7 D Chloride 93 L 103 Carbon Dioxide 13 L 7 L* D Anion Gap 29 H 29 H BUN 155 H 137 H Creatinine 11.65 H* 10.09 H* Estim Creat Clear Calc 4.8 5.6 Estimated GFR 3 4 Random Glucose 132 H 118 H Lactic Acid 1.4 Calcium 5.9 L* 6.0 L* Magnesium 2.5 Total Bilirubin 0.4 Direct Bilirubin 0.2 AST 92 H ALT 35 H Alkaline Phosphatase 74 Troponin I High Sens B-Natriuretic Peptide 524 H Total Protein 7.2 Albumin 3.4 L Lipase Urine Color Dark Yellow Urine Appearance Turbid Urine pH 5.0 Ur Specific Rickman 1.025 Urine Protein 300 (3+) H Urine Glucose (UA) Negative Urine Ketones Negative Urine Blood Moderate (2+) H Urine Nitrite Negative Ur Leukocyte Esterase Large (3+) H Urine RBC >20 H Urine WBC >50 H Ur Squamous Epith Cells 6-10 Urine Bacteria 3+ Hyaline Casts 0-2 Blood Type Antibody Screen 12/30/23 01:14 WBC RBC Hgb Hct MCV MCH MCHC RDW Plt Count MPV Immature Gran % (Auto) Neut % (Auto) Lymph % (Auto) [place] % (Auto) Eos % (Auto) Baso % (Auto) Lymph # (Auto) [place] # (Auto) Eos # (Auto) Baso # (Auto) Abs Immat Gran (auto) Absolute Neuts (auto) Absolute Nucleated RBC Nucleated RBC % (auto) Neutrophils % (Manual) Band Neutrophils % Lymphocytes % (Manual) Monocytes % (Manual) Eosinophils % (Manual) Basophils % (Manual) Abs Neuts (Manual) Lymphocytes # (Manual) Monocytes # (Manual) Eosinophils # (Manual) Toxic Granulation Toxic Vacuolation Platelet Estimate Plt Morphology Comment RBC Morphology Joyce Cells PT INR APTT VBG pH 7.25 L VBG pCO2 20 VBG pO2 85 VBG HCO3 9 L VBG O2 Saturation 99.0 VBG Base Excess -15.9 Sodium Potassium Chloride Carbon Dioxide Anion Gap BUN Creatinine Estim Creat Clear Calc Estimated GFR Random Glucose Lactic Acid Calcium Magnesium Total Bilirubin Direct Bilirubin AST ALT Alkaline Phosphatase Troponin I High Sens B-Natriuretic Peptide Total Protein Albumin Lipase Urine Color Urine Appearance Urine pH Ur Specific Rickman Urine Protein Urine Glucose (UA) Urine Ketones Urine Blood Urine Nitrite Ur Leukocyte Esterase Urine RBC Urine WBC Ur Squamous Epith Cells Urine Bacteria Hyaline Casts Blood Type Antibody Screen Procedures Date of Service Date of Service: 12/30/23 Assessment & Plan Assessment and plan (1) Acute renal failure: Status: Acute (2) Acute hypokalemia: Status: Acute (3) Metabolic acidosis: Status: Acute (4) Breast cancer metastasized to bone: Status: Acute Plan Acute renal failure worsening no obstruction on imaging, sherman draining urine differentials include ATN from hypovolemia secondary to GI losses from severe diarrhea should also consider AIN (CDK4/6 inhibitor recently started, also on aromatase inhibitor), AGN co-occurring with ATN should also consider TLS, though less likely with normal lactate; TTP recommend close blood pressure and I&O monitoring recommend avoiding nephrotoxins pt needs renal replacement patient remains acidotic despite bicarbonate drip Discussed with ICU team and they are discussing goals of care with patient and family further ongoing care with be pending information and data Discussed with Dr Bledsoe Time Spent With Patient Time: Total time managing care of this patient today ____ minutes. Progress Note: Quality Stroke Does the patient have a stroke diagnosis?: No
[2023-12-30] MEDS: 0.9 % Sodium Chloride Flush 3 ML SYRINGE IVFLUSH (08:46)
[2023-12-30] MEDS: Heparin Sodium,Porcine 5,000 UNIT/ML VIAL 5000 UNIT SUBCUT ×2 (08:50→20:43)
[2023-12-30] MEDS: Sodium Bicarbonate 8.4% 150 MEQ in Dextrose 5 % 850 ML 999 MEQ IV (11:22)
[2023-12-30 11:26] LABS: Hematocrit 28.7 % (37.0-47.0); Hemoglobin 10.3 g/dl (12.0-16.0); Mean Corpuscular HGB Conc 35.9 g/dl (31.0-35.0); Mean Corpuscular Hemoglobin 29.5 pg (27.0-33.0); Mean Corpuscular Volume 82.2 fL (80.0-98.0); Mean Platelet Volume 9.5 fL (9.4-12.3); Platelet Count 157 X10*3/uL (160-400); Red Blood Count 3.49 X10*6/uL (4.20-5.50); Red Cell Distribution Width 15.1 % (11.0-16.0); White Blood Count 2.4 X10*3/uL (4.8-10.8)
[2023-12-30 11:27] LABS: VBG Base Excess -10.1 mmol/L; VBG HCO3 13 mmol/L (22-26); VBG pCO2 23 mmHg; VBG pH 7.36 (7.32-7.43); VBG pO2 124 mmHg
[2023-12-30 11:32] LABS: Venous Blood Gas Refer to POC result
[2023-12-30 11:53] LABS: B Type Natriuretic Peptide 1544 pg/mL (<100)
[2023-12-30] MEDS: fentaNYL citrate/PF 100 MCG/2 ML VIAL 50 MCG IVPUSH ×3 (11:53→20:47)
[2023-12-30 12:01] LABS: Alanine Aminotransferase 24 U/L (0-31); Albumin Level 2.9 g/dL (3.5-5.0); Alkaline Phosphatase 62 U/L (39-117); Anion Gap 24 (12-20); Aspartate Amino Transferase 57 U/L (5-31); Bilirubin Total 0.3 mg/dL (0.0-1.0); Calcium 5.6 mg/dL (8.4-10.2); Carbon Dioxide 13 mmol/L (22-29); Chloride 102 mmol/L (96-108); Creatinine Clr Calc Pharmacy 6.5; Estimated Glomerular Filt Rate 5; Glucose Random 204 mg/dL (60-115); Potassium 3.1 mmol/L (3.3-5.1); Sodium 136 mmol/L (135-145); Total Protein 6.3 g/dL (6.5-8.0)
[2023-12-30 12:13] LABS: Blood Urea Nitrogen 130 mg/dL (9-16)
--- NOTE | 2023-12-30 12:24 | PM.HEMONCCN ---
Subjective - Subjective Chief complaint: Nausea vomiting and diarrhea Patient: known to practice within the last 3 years Consult date: 12/30/23 Primary Care Provider: Unknown Physician Medical Summary: Diagnosis-metastatic breast cancer a CT chest in 10/30/2023 revealed large right pleural effusion, evidence of multiple spinal lesions worrisome for metastatic disease as well as ascites and abnormal retroperitoneal adenopathy. CT scan of the abdomen pelvis from 10/22 revealed: Multiple sclerotic lesions throughout all the bony structures concerning for metastatic disease. Asymmetric thickening left breast concerning for malignancy. Large layering right pleural effusion with consolidation/atelectasis on the right. New line small amount of ascites without bowel obstruction. The bowel does appear to be drawn to the posterior central pelvis without discrete soft tissue mass. Small splenule versus implant left upper quadrant. Mildly enlarged celiac axis and prominent left portacaval lymph nodes. Bilateral right greater than left hydronephrosis likely from UPJ obstruction. 10/28/2023. Left breast needle biopsy: Minute focus of invasive lobular carcinoma, grade 2. LVI not identified. ER positive 100%, strong intensity. MT positive 100% strong intensity. HER2 Gurmeet: Low 1+. Ki-67 expression: High 20% positive, moderate intensity. 10/30/23: She underwent right thoracentesis. No x-ray was done after. Thoracentesis: Metastatic adenocarcinoma. About 3 weeks later she went back for shortness of breath. By this time the PET scan was done and revealed a large pneumothorax. She was transferred to [facility]. There 1.2 L of pleural fluid were removed. 11/12/2023. Pathology: Skin, left lower outer breast, excision: Invasive lobular carcinoma, grade 2, involving skin, dermis and subcutaneous tissue. Molecular studies for NGS and PD-L1 have been ordered. PET scan from revealed: Large right pneumothorax presumed from pleural Mets. Locally advanced infiltrative left breast malignancy with extension to the ipsilateral pectoralis muscle and axilla. Trent involvement of the left axilla and internal mammary trent chain. Metastatic disease to the chest, right lung, right-sided large malignant pleural effusion, peritoneal carcinomatosis and small ascites and multiple osseous lesions. Abnormal diffuse thickening and uptake in the proximal and mid stomach raises the concern for linitis gastric iron light of the other findings. Severe right hydronephrosis however is likely due to narrowing at the ureteropelvic junction rather than peritoneal carcinomatosis. Mild left hydro ureteral nephrosis could be due to peritoneal disease. Intense focal uptake gluteal major insertion of the right and mid on the left. Bulky left adnexa is incompletely evaluated. 11/17/2023. MRI of the brain: New line no acute intracranial abnormality. Moderate senescent and chronic microangiopathic changes. No abnormal enhancement to suggest intracranial metastases. HPI - Consult Narrative Reason for consult: Acute renal failure, metastatic breast cancer Narrative: Nargis Hale is a 63 year old female who was diagnosed in 10/30/2023 with metastatic breast cancer. She is currently admitted for acute renal failure, oncology consultation has been called to discuss goals of care. As detailed in medical summary, patient was diagnosed with metastatic breast cancer, she had a right pleural effusion with multiple spinal metastasis as well as retroperitoneal lymphadenopathy. Biopsy revealed invasive lobular carcinoma that was strongly ER/MT positive. Patient was started on letrozole in October, end of November she was started on abemaciclib. Unfortunately, she developed significant nausea vomiting as well as diarrhea since she started abemaciclib. She presented to ED, her serum creatinine hamlet from 1.4-11. Chest x-ray showed worsening pneumothorax. She was transferred to the ICU because of hypotension and need for pressor support. She appears to be responding to fluid resuscitation. Patient wishes to be DNR/DNI. At this time she is awake but not able to provide much history. Review of Systems - Neurologic Denies dizziness PMFSH Medical History: Medical History (Last Reviewed 12/29/23 @ 16:34 by Gabino Merchant MD) Breast cancer metastasized to bone Family History: Family History (Last Reviewed 12/29/23 @ 16:34 by Gabino Merchant MD) Sister Pancreatic cancer Maternal Grandmother Cervical cancer Social History: Social History (Last Reviewed 12/29/23 @ 16:34 by Gabino Merchant MD) Living Situation History: Household Members: Spouse Tobacco History: Patient Tobacco Use Status: Former Tobacco user Tobacco use type: Cigarette e-Cigarette/Vaping Use: Never Used Second Hand Smoke Exposure: No Occupation Assessmet: service: No Current occupational status: retired Home Medications and Allergies Current Medications: Current Medications Acetaminophen (Acetaminophen 325 Mg Tablet) 650 mg PO Q6H PRN PRN Reason: Pain, Mild (Pain Scale 1-3), fever or headache Albuterol/Ipratropium (Albuterol/Iprat 2.5/0.5mg 3 Ml Ampul.Neb) 3 ml INHALE Q4H PRN PRN Reason: Wheezing Last Admin: 12/30/23 03:50 Dose: 3 ml Calcium Carbonate (Calcium Carbonate 750 Mg Tab.Chew) 750 mg PO Q4H PRN PRN Reason: Heartburn Ceftriaxone Sodium (Ceftriaxone Sodium 1 Gm Vial) 1 gm IVPUSH Q24H [facility] Last Admin: 12/30/23 00:40 Dose: 1 gm Fentanyl (Fentanyl Citrate/Pf 100 Mcg/2 Ml Vial) 50 mcg IVPUSH Q2H PRN; Protocol PRN Reason: Pain, Moderate(Pain Scale 4-6) Last Admin: 12/30/23 11:53 Dose: 50 mcg Heparin Sodium (Porcine) (Heparin Sodium,Porcine 5,000 Unit/Ml Vial) 5,000 unit SUBCUT Q12H [facility] Last Admin: 12/30/23 08:50 Dose: 5,000 unit Norepinephrine Bitartrate (Levophed) 8 mg in 250 mls @ 0 mls/hr IVCONT .Q0M [facility]; Protocol Last Titration: 12/30/23 12:02 Dose: 0 mcg/kg/min, 0 mls/hr Sodium Bicarbonate 150 meq/ (Dextrose) 1,000 mls @ 150 mls/hr IV .Q6H40M [facility] Last Infusion: 12/30/23 10:35 Dose: 150 mls/hr Magnesium Hydroxide (Milk Of Magnesia 30 Ml Oral.Susp) 30 ml PO DAILY PRN PRN Reason: Constipation Melatonin (Melatonin 3 Mg Tablet) 6 mg PO BEDTIME PRN PRN Reason: Insomnia Midodrine (Midodrine Hcl 10 Mg Tablet) 10 mg PO TID [facility] Last Admin: 12/30/23 10:49 Dose: Not Given Ondansetron HCl (Ondansetron Hcl 4 Mg/2 Ml Vial) 4 mg IVPUSH Q8H PRN PRN Reason: Nausea and Vomiting Sodium Chloride (0.9 % Sodium Chloride Flush 3 Ml Syringe) 3 ml IVFLUSH QSHIFT [facility] Last Admin: 12/30/23 08:46 Dose: 3 ml Home Medications ?Medication ?Instructions ?Recorded ?Confirmed ?Type hydrochlorothiazide 25 mg tablet 25 mg PO DAILY 12/09/23 12/29/23 History letrozole 2.5 mg tablet 2.5 mg PO DAILY 12/09/23 12/29/23 History lisinopril 10 mg tablet 10 mg PO DAILY 12/09/23 12/29/23 History zolpidem 5 mg tablet 5 mg PO BEDTIME PRN insomnia 12/09/23 12/29/23 History acetaminophen 500 mg tablet 500 mg PO DAILY PRN Pain 12/29/23 12/29/23 History ondansetron HCl 8 mg tablet 8 mg PO Q8H PRN Nausea And Vomiting 12/29/23 12/29/23 History oxycodone 5 mg tablet 5 mg PO DAILY PRN Pain 12/29/23 12/29/23 History Allergies Allergy/AdvReac Type Severity Reaction Status Date / Time No Known Allergies Allergy Verified 12/29/23 12:16 Physical Exam Vital signs: Vital Signs Temp 99.2 F 12/30/23 08:00 Pulse 112 H 12/30/23 12:02 Resp 18 12/30/23 12:00 BP 116/62 12/30/23 12:02 Pulse Ox 92 12/30/23 12:00 O2 Del Method Room Air 12/30/23 12:00 O2 Flow Rate 2 12/30/23 11:00 Intake & Output 12/29/23 12/30/23 12/30/23 18:59 06:59 18:59 Intake Total 1300 / 4320.400 3020.400 / 4320.400 300.476 / 300.476 Output Total 600 / 660 180 / 180 Balance 1300 / 3660.400 2420.400 / 3660.400 120.476 / 120.476 Urine Output (Average ml/kg/hr) 0.62 0.19 Intake: Intake, IV Amount 1300 / 4320.400 3020.400 / 4320.400 300.476 / 300.476 0.9 % Sodium Chloride 1,000 ml 1000 / 1000 @ 999 mls/hr IV .Q1H1M [facility] Rx#: [id number] Calcium Gluconate/NaCl,Iso-Osm 100 / 100 2 gm In 100 ml @ 50 mls/hr IV ONCE ONE Rx#:[id number] Lactated Ringers 1,000 ml @ 999 1000 / 1000 mls/hr IV .Q1H1M [facility] Rx#: [id number] Potassium Chloride/H20 10 meq 300 / 1298.333 998.333 / 1298.333 In 100 ml @ 100 mls/hr IV Q1H [facility] Rx#:[id number] Sodium Bicarbonate 8.4% 150 meq 252.5 / 252.5 In Dextrose 5 % 850 ml @ 50 mls/hr IV .Q20H [facility] Rx#: [id number] Lactated Ringers 1,000 ml @ 100 916.667 / 916.667 mls/hr IVCONT .Q10H [facility] Rx#: [id number] Norepinephrine Bitartrate/D5W 8 5.400 / 5.400 47.976 / 47.976 mg In 250 ml @ Per Protocol IVCONT .Q0M [facility] Rx#:[id number] Output: Output, Urine Amount 400 / 400 Output, Urine Amount (Catheter) 200 / 260 180 / 180 Urethral 200 / 260 180 / 180 Other: NPO Yes Urine Color Yellow [place] Tinged Weight 80.739 kg 80.7 kg Weight in Grams 12367 Weight 80.7 kg - Constitutional Present: chronically ill appearing, somnolent - Routine HEENT Exam Eye: Present: conjunctivae pale - Routine Neck Exam Absent: lymphadenopathy - Routine Respiratory Exam Present: decreased breath sounds. Absent: accessory muscle use, patient mechanically ventilated - Routine Cardiovascular Exam Cardiovascular: Present: S1, S2, tachycardia - Routine Abdominal Exam Present: soft - Routine Extremities Exam Present: pulses intact Hem/Onc Consult Result - Labs CBC & Chem 7: 12/30/23 11:08 12/30/23 11:08 Labs: Short CBC 12/29/23 12/30/23 Range/Units 12:37 11:08 WBC 2.9 L 2.4 L (4.8-10.8) X10*3/uL Hgb 12.3 10.3 L (12.0-16.0) g/dl Hct 34.4 L 28.7 L (37.0-47.0) % Plt Count 238 D 157 L D (160-400) X10*3/uL BMP 12/29/23 12/29/23 12/29/23 12:34 17:36 Unknown Sodium 132 L 134 L 133 L Potassium 2.4 L* D 2.6 L* 2.4 L* Chloride 91 L 98 93 L Carbon Dioxide 12 L 9 L* D 13 L BUN > 125 H 145 H 155 H Creatinine 12.03 H* 11.06 H* 11.65 H* Calcium 6.2 L D 5.8 L* 5.9 L* 12/30/23 12/30/23 01:06 11:08 Sodium 135 136 Potassium 3.7 D 3.1 L Chloride 103 102 Carbon Dioxide 7 L* D 13 L BUN 137 H 130 H Creatinine 10.09 H* 8.75 H* Calcium 6.0 L* 5.6 L* D Liver Function 12/29/23 12/29/23 12/30/23 Range/Units 12:34 Unknown 11:08 Total Bilirubin 0.4 0.4 0.3 (0.0-1.0) mg/dL Direct Bilirubin 0.2 (0.0-0.5) mg/dL AST 105 H 92 H 57 H (5-31) U/L ALT 40 H 35 H 24 (0-31) U/L Alkaline Phosphatase 84 74 62 (39-117) U/L Albumin 3.8 3.4 L 2.9 L (3.5-5.0) g/dL Urine 12/29/23 Range/Units 18:00 Urine Color Dark Yellow Urine Appearance Turbid Urine pH 5.0 (5.0-9.0) Ur Specific [place] 1.025 (1.005-1.025) Urine Protein 300 (3+) H (Neg-Trace) mg/dL Urine Glucose (UA) Negative (Negative) mg/dL Assessment and Plan Patient Active problem list reviewed?: Yes (1) Breast cancer metastasized to bone Status: Acute Assessment and plan: 1. This is a 63-year-old woman who was diagnosed with metastatic breast cancer in October 2023. She presented with large right pleural effusion and multiple spinal metastasis as well as ascites and retroperitoneal lymphadenopathy. Left breast biopsy revealed invasive lobular carcinoma, grade 2, ER positive 100% MT positive 100% HER2 Gurmeet low 1+ Ki 67 expression high 20%. PET scan revealed large right pneumothorax from pleural Mets, locally advanced infiltrative left breast malignancy with extension to ipsilateral pectoralis muscle and axilla, involvement of the left axilla internal mammary nodes. Large malignant right pleural effusion, peritoneal carcinomatosis and small ascites, multiple osseous lesions. Abnormal uptake in the proximal and mid stomach raising concern for linitis, severe right hydronephrosis secondary to narrowing of UP junction, bulky left adnexa which is incompletely evaluated. Patient was seen by Dr. Ochoa in consultation, she was started on letrozole in October and abemaciclib 200 p.o. b.i.d. on 12/09/2023. She was started on denosumab for bone metastasis. On 12/17/2023 she complained of diarrhea, patient was advised to decrease dose of abemaciclib. On 12/30/2023 patient presented with worsening GI symptoms of nausea, vomiting and diarrhea. She presented with acute kidney failure secondary to dehydration and worsening right hydropneumothorax. She had an appointment for PleurX catheter placement at [facility] yesterday, appears that patient may not have gone for the appointment. Compared to recent PET scan, current imaging with CT chest/abdomen and pelvis without contrast may be showing some improvement in her metastasis in the abdomen. She does have extensive bone metastasis. Although patient has metastatic breast cancer that is curable, with palliative treatment patients with ER/MT positive breast cancer or able to live for years. If her kidney functions reverse and her hydropneumothorax can be addressed successfully, she can continue to receive palliative hormonal therapy with CDK4 6 inhibitor which appears to be helping her cancer. She is young and does not have any significant other comorbidities, it would be reasonable to continue ongoing palliative treatment of her breast cancer if patient is willing. I thank you for this consultation. - Time Spent With Patient Time Spent with Patient (in minutes): 20
[2023-12-30] MEDS: Midodrine HCl 10 MG TABLET PO (14:25)
[2023-12-30] MEDS: Sodium Bicarbonate 8.4% 150 MEQ in Dextrose 5 % 850 ML IV (14:28)
--- NOTE | 2023-12-30 14:35 | MHC.CM.PN ---
Addendum entered by Dede Isaac 12/30/23 16:11: [place] [facility] [place] copy in chart and will be scanned into EMR. Pt named Delmar (payal) as proxy Addendum entered by Dede Isaac 12/30/23 14:41: [place] [facility] [place]: no copy of HCP on file: SW notes do not mention one as well as no PCP listed. CM to await Delmar's call back Original Note: Pt admitted to ICU with chemistry abnormalities in the setting of metastatic breast cancer: mets to lungs, peritoneum, bones. Pt lethargic and unable to particpate in CM assessment. Message left for pt's contact, payal Jacobsen requesting a call back. Pt from home with unknown services: PCP and HCP also unknown at this time. ? palliative/hospice care. CM to follow.
[2023-12-30 15:11] LABS: Alanine Aminotransferase 25 U/L (0-31); Albumin Level 2.7 g/dL (3.5-5.0); Alkaline Phosphatase 58 U/L (39-117); Aspartate Amino Transferase 53 U/L (5-31); Bilirubin Total 0.3 mg/dL (0.0-1.0); Creatinine Clr Calc Pharmacy 7.2; Estimated Glomerular Filt Rate 5; Total Protein 5.8 g/dL (6.5-8.0)
[2023-12-30 15:46] LABS: Anion Gap 23 (12-20); Blood Urea Nitrogen 124 mg/dL (9-16); Calcium 5.4 mg/dL (8.4-10.2); Carbon Dioxide 23 mmol/L (22-29); Chloride 94 mmol/L (96-108); Glucose Random 359 mg/dL (60-115); Potassium 2.6 mmol/L (3.3-5.1); Sodium 137 mmol/L (135-145)
--- NOTE | 2023-12-30 16:57 | P.PNCC_ITS ---
Subjective Subjective Date of Service: 12/30/23 Critical Care Time (minutes): 35 Comment: Breathing status improved significantly currently on room air Acute kidney injury is improving with fluid replacement, bicarb has improved to 23 Was off of pressors for few hours, restarted at starting dose now. Physical Exam 2 Vital Signs: Vital Signs: Last Vital Signs Temp 97.2 F 12/30/23 12:00 Pulse 109 H 12/30/23 16:00 Resp 17 12/30/23 16:00 BP 98/60 12/30/23 16:00 Pulse Ox 93 12/30/23 16:00 O2 Del Method Room Air 12/30/23 16:00 O2 Flow Rate 2 12/30/23 11:00 BMI result Body Mass Index 32.5 General: ill appearing and tired appearing Nutritional Appearance: well nourished and normal weight Eyes: appearance normal, both eyes and all related structures; Alignment and Position: alignment normal and position normal Neck: No lymphadenopathy, no thyromegaly Resp: bilateral air entry equal, occasional bilateral crackles heard Cardio: Regular rate, regular rhythm; Heart sounds: S1 normal heart sound present and S2 normal heart sound present GI: soft, nontender, no guarding, no hepatosplenomegaly : bladder normal to inspection, bladder normal to palpation, no renal angle tenderness Skin: no rashes or lesions noted and elasticity normal Neuro: Responding to commands, no focal deficits Objective Data Labs 12/30/23 11:08 12/30/23 14:33 Labs: Laboratory Results - last 24 hr 12/29/23 12/29/23 12/30/23 17:36 18:00 01:06 WBC RBC Hgb Hct MCV MCH MCHC RDW Plt Count MPV Absolute Nucleated RBC Nucleated RBC % (auto) VBG pH VBG pCO2 VBG pO2 VBG HCO3 VBG O2 Saturation VBG Base Excess Sodium 134 L 135 Potassium 2.6 L* 3.7 D Chloride 98 103 Carbon Dioxide 9 L* D 7 L* D Anion Gap 30 H 29 H BUN 145 H 137 H Creatinine 11.06 H* 10.09 H* Estim Creat Clear Calc 5.2 5.6 Estimated GFR 4 4 Random Glucose 120 H 118 H Lactic Acid 1.4 Calcium 5.8 L* 6.0 L* Total Bilirubin AST ALT Alkaline Phosphatase B-Natriuretic Peptide 524 H Total Protein Albumin Urine Color Dark Yellow Urine Appearance Turbid Urine pH 5.0 Ur Specific [place] 1.025 Urine Protein 300 (3+) H Urine Glucose (UA) Negative Urine Ketones Negative Urine Blood Moderate (2+) H Urine Nitrite Negative Ur Leukocyte Esterase Large (3+) H Urine RBC >20 H Urine WBC >50 H Ur Squamous Epith Cells 6-10 Urine Bacteria 3+ Hyaline Casts 0-2 12/30/23 12/30/23 12/30/23 01:14 11:08 11:23 WBC 2.4 L RBC 3.49 L Hgb 10.3 L Hct 28.7 L MCV 82.2 MCH 29.5 MCHC 35.9 H RDW 15.1 Plt Count 157 L D MPV 9.5 Absolute Nucleated RBC 0.000 Nucleated RBC % (auto) 0.0 VBG pH 7.25 L 7.36 VBG pCO2 20 23 VBG pO2 85 124 VBG HCO3 9 L 13 L VBG O2 Saturation 99.0 100.0 VBG Base Excess -15.9 -10.1 Sodium 136 Potassium 3.1 L Chloride 102 Carbon Dioxide 13 L Anion Gap 24 H BUN 130 H Creatinine 8.75 H* Estim Creat Clear Calc 6.5 Estimated GFR 5 Random Glucose 204 H Lactic Acid Calcium 5.6 L* D Total Bilirubin 0.3 AST 57 H ALT 24 Alkaline Phosphatase 62 B-Natriuretic Peptide 1544 H Total Protein 6.3 L Albumin 2.9 L Urine Color Urine Appearance Urine pH Ur Specific [place] Urine Protein Urine Glucose (UA) Urine Ketones Urine Blood Urine Nitrite Ur Leukocyte Esterase Urine RBC Urine WBC Ur Squamous Epith Cells Urine Bacteria Hyaline Casts 12/30/23 14:33 WBC RBC Hgb Hct MCV MCH MCHC RDW Plt Count MPV Absolute Nucleated RBC Nucleated RBC % (auto) VBG pH VBG pCO2 VBG pO2 VBG HCO3 VBG O2 Saturation VBG Base Excess Sodium 137 Potassium 2.6 L* Chloride 94 L Carbon Dioxide 23 Anion Gap 23 H BUN 124 H Creatinine 7.94 H* Estim Creat Clear Calc 7.2 Estimated GFR 5 Random Glucose 359 H* Lactic Acid Calcium 5.4 L* Total Bilirubin 0.3 AST 53 H ALT 25 Alkaline Phosphatase 58 B-Natriuretic Peptide Total Protein 5.8 L Albumin 2.7 L Urine Color Urine Appearance Urine pH Ur Specific [place] Urine Protein Urine Glucose (UA) Urine Ketones Urine Blood Urine Nitrite Ur Leukocyte Esterase Urine RBC Urine WBC Ur Squamous Epith Cells Urine Bacteria Hyaline Casts Microbiology Microbiology Results: Microbiology 12/29/23 12:34 Blood - Venous Blood Culture - Preliminary No growth after 24 hours. 12/29/23 18:29 Urine clean catch - Clean Catch Midstream Urine Culture - Preliminary No growth to date. 12/29/23 13:10 Blood - Venous Blood Culture - Preliminary Prelim: GNR Gram Stain only Progress Note: A&P Assessment and plan (1) Acute renal failure: Status: Acute (2) Acute hypokalemia: Status: Acute (3) Hypocalcemia: Status: Acute (4) Volume depletion: Status: Acute (5) Metabolic acidosis: Status: Acute (6) Breast cancer metastasized to bone: Status: Acute (7) Pneumothorax, right: Status: Acute Plan Acute kidney injury: Severe metabolic acidosis: Patient has acute kidney injury secondary to CPA nausea vomiting and diarrhea possibly secondary to chemotherapy Renal function improving with fluid replacement, as well as her bicarb. Most recent bicarb is 23, we will decrease the sodium bicarbonate to 100 cc/hour Bedside echo showing IVC small and collapsing, RV small, normal LV function Acute respiratory failure: Secondary to severe metabolic acidosis leading to hyper ventilation, which is improved after correcting the acidosis Status post chest tube placement for large right-sided hydropneumothorax Breast cancer with metastasis: His PET scans in November showed hydronephrosis with multiple peritoneal metastasis and some ascites. He has been started on new oral chemotherapy and the CT scan from yesterday showed normal kidneys with no hydronephrosis and no ascites was seen. Explained the family that based on the CT images there has been some improvement in the metastatic symptoms in the abdomen, would continue the chemotherapy with a adjunct support for GI symptoms once the renal function improves and her mental status is better Prophylaxis: Heparin, pantoprazole Code status: DNI DNR Quality Stroke Does the patient have a stroke diagnosis?: No VTE Prior VTE?: No VTE Risk Level:: Medical - moderate - high VTE Device Contraindication: Treatment Not Indicated VTE Drug Contraindication: N/A - Med Ordered
[2023-12-30] MEDS: Calcium Gluconate/NaCl,Iso-Osm 2 GM/100 ML PLAST..BAG IV (17:16)
[2023-12-30] MEDS: OLANZapine 10 MG VIAL IM (18:15)
[2023-12-31] VITALS (40 sets, daily range): BP systolic 69–135; BP diastolic 44–78; PULSE 90–118; RESP 11–40; TEMP 36.4–36.9; O2SAT 90–97; BMI 32.5
[2023-12-31] MEDS: cefTRIAXone sodium 1 GM VIAL IVPUSH ×2 (00:12→23:40)
[2023-12-31] MEDS: 0.9 % Sodium Chloride Flush 3 ML SYRINGE IVFLUSH ×3 (00:12→21:41)
[2023-12-31] MEDS: HYDROmorphone HCl 0.5 MG/0.5 ML SYRINGE IVPUSH ×5 (01:55→21:39)
[2023-12-31 04:43] LABS: VBG Base Excess 12.3 mmol/L; VBG HCO3 33 mmol/L (22-26); VBG pCO2 32 mmHg; VBG pH 7.62 (7.32-7.43); VBG pO2 45 mmHg
[2023-12-31 04:57] LABS: Venous Blood Gas Refer to POC result
[2023-12-31 05:11] LABS: Hematocrit 26.9 % (37.0-47.0); Hemoglobin 9.9 g/dl (12.0-16.0); Mean Corpuscular HGB Conc 36.8 g/dl (31.0-35.0); Mean Corpuscular Hemoglobin 29.7 pg (27.0-33.0); Mean Corpuscular Volume 80.8 fL (80.0-98.0); Mean Platelet Volume 9.7 fL (9.4-12.3); Platelet Count 128 X10*3/uL (160-400); Red Blood Count 3.33 X10*6/uL (4.20-5.50); Red Cell Distribution Width 14.2 % (11.0-16.0); White Blood Count 2.7 X10*3/uL (4.8-10.8)
[2023-12-31 05:33] LABS: Alanine Aminotransferase 19 U/L (0-31); Albumin Level 2.7 g/dL (3.5-5.0); Alkaline Phosphatase 53 U/L (39-117); Anion Gap 20 (12-20); Aspartate Amino Transferase 45 U/L (5-31); Bilirubin Total 0.4 mg/dL (0.0-1.0); Blood Urea Nitrogen 115 mg/dL (9-16); Calcium 6.1 mg/dL (8.4-10.2); Carbon Dioxide 30 mmol/L (22-29); Chloride 93 mmol/L (96-108); Creatinine Clr Calc Pharmacy 9.8; Estimated Glomerular Filt Rate 7; Glucose Random 103 mg/dL (60-115); Magnesium 1.8 mg/dL (1.6-2.6); Phosphorus 2.3 mg/dL (2.7-4.5); Potassium 3.3 mmol/L (3.3-5.1); Sodium 140 mmol/L (135-145); Total Protein 5.8 g/dL (6.5-8.0)
[2023-12-31 05:34] LABS: Band Neutrophils Percent 6 % (3-5); Eosinophils Percent Manual 1 % (0-4); Lymphocytes Absolute Manual 0.7 X10*3/uL (1.2-4.9); Lymphocytes Percent Manual 26 % (20-40); Monocytes Absolute Manual 0.1 X10*3/uL (0.1-1.2); Monocytes Percent Manual 3 % (2-11); Neutrophils Absolute Manual 1.9 X10*3/uL (2.0-8.3); Neutrophils Percent Manual 64 % (45-73); RBC Morphology NOTED
[2023-12-31 05:36] LABS: Target Cells 1+ (5-14) /OIF
[2023-12-31 05:37] LABS: Dohle Bodies PRESENT; Platelet Estimate DECREASED (NORMAL)
[2023-12-31 05:38] LABS: Ovalocytes 1+ (5-14) /OIF; Platelet Morphology Comment NORM
--- NOTE | 2023-12-31 07:35 | PM.PNNEP ---
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 Presented 12/28 with shortness of breath, failure to thrive (not eating for 3-4 days but has been drinking lots of bottled water per fiance), increased pain (back, lower abdomen and hip). Fiance is [place]. creatinine on 12/16 was 1.71 labs on 12/28: Na 133, K 2.4, CO2 13, AG 29, BUN 155, creatinine 11.65 creatinine trending down, 12/29 was 7.94 and 12/30 is 5.83 serum bicarb has improved, slightly elevated at 30 this a.m.; bicarbonate drip discontinued pt now on LR @100mL/hr CT abdomen/pelvis 12/28 kidneys/ureters unremarkable without hydronephrosis, hydroureter, calculi. Pt awakens to voice but is not conversant, mumbles/groans, lethargic. Physical Exam Vital Signs: Vital Signs: Last Vital Signs Temp 97.5 F 12/31/23 08:00 Pulse 118 H 12/31/23 10:00 Resp 20 12/31/23 10:00 BP 110/71 12/31/23 10:00 Pulse Ox 92 12/31/23 10:00 O2 Del Method Oxymask 12/31/23 10:00 O2 Flow Rate 2 12/31/23 10:00 BMI result Body Mass Index 32.5 Const: General: lethargic Orientation/consciousness: lethargic Neck: Neck: Yes no JVD Resp: Auscultation: rhonchi Cardio: Jugular venous distension: no JVD Rate: regular rate Rhythm: regular rhythm Heart sounds: S1 normal heart sound present and S2 normal heart sound present GI: Palpation (GI): Soft to palpation and nontender Skin: Lesions: no lesions Rashes: no rashes Extrem: General: No edema Objective Data Labs 12/31/23 04:36 12/31/23 04:36 Labs: Laboratory Results - last 24 hr 12/30/23 12/30/23 12/30/23 11:08 11:23 14:33 WBC 2.4 L RBC 3.49 L Hgb 10.3 L Hct 28.7 L MCV 82.2 MCH 29.5 MCHC 35.9 H RDW 15.1 Plt Count 157 L D MPV 9.5 Immature Gran % (Auto) Neut % (Auto) Lymph % (Auto) [place] % (Auto) Eos % (Auto) Baso % (Auto) Lymph # (Auto) [place] # (Auto) Eos # (Auto) Baso # (Auto) Abs Immat Gran (auto) Absolute Neuts (auto) Absolute Nucleated RBC 0.000 Nucleated RBC % (auto) 0.0 Neutrophils % (Manual) Band Neutrophils % Lymphocytes % (Manual) Monocytes % (Manual) Eosinophils % (Manual) Abs Neuts (Manual) Lymphocytes # (Manual) Monocytes # (Manual) Dohle Bodies Platelet Estimate Plt Morphology Comment RBC Morphology Target Cells Ovalocytes VBG pH 7.36 VBG pCO2 23 VBG pO2 124 VBG HCO3 13 L VBG O2 Saturation 100.0 VBG Base Excess -10.1 Sodium 136 137 Potassium 3.1 L 2.6 L* Chloride 102 94 L Carbon Dioxide 13 L 23 Anion Gap 24 H 23 H BUN 130 H 124 H Creatinine 8.75 H* 7.94 H* Estim Creat Clear Calc 6.5 7.2 Estimated GFR 5 5 Random Glucose 204 H 359 H* Calcium 5.6 L* D 5.4 L* Phosphorus Magnesium Total Bilirubin 0.3 0.3 AST 57 H 53 H ALT 24 25 Alkaline Phosphatase 62 58 B-Natriuretic Peptide 1544 H Total Protein 6.3 L 5.8 L Albumin 2.9 L 2.7 L 12/31/23 12/31/23 04:32 04:36 WBC 2.7 L RBC 3.33 L Hgb 9.9 L Hct 26.9 L MCV 80.8 MCH 29.7 MCHC 36.8 H RDW 14.2 Plt Count 128 L MPV 9.7 Immature Gran % (Auto) Cancelled Neut % (Auto) Cancelled Lymph % (Auto) Cancelled [place] % (Auto) Cancelled Eos % (Auto) Cancelled Baso % (Auto) Cancelled Lymph # (Auto) Cancelled [place] # (Auto) Cancelled Eos # (Auto) Cancelled Baso # (Auto) Cancelled Abs Immat Gran (auto) Cancelled Absolute Neuts (auto) Cancelled Absolute Nucleated RBC 0.000 Nucleated RBC % (auto) 0.0 Neutrophils % (Manual) 64 Band Neutrophils % 6 H Lymphocytes % (Manual) 26 Monocytes % (Manual) 3 Eosinophils % (Manual) 1 Abs Neuts (Manual) 1.9 L Lymphocytes # (Manual) 0.7 L Monocytes # (Manual) 0.1 Dohle Bodies PRESENT Platelet Estimate DECREASED Plt Morphology Comment NORM RBC Morphology NOTED Target Cells 1+ (5-14) Ovalocytes 1+ (5-14) VBG pH 7.62 H* VBG pCO2 32 VBG pO2 45 VBG HCO3 33 H VBG O2 Saturation 81.0 VBG Base Excess 12.3 Sodium 140 Potassium 3.3 D Chloride 93 L Carbon Dioxide 30 H Anion Gap 20 BUN 115 H Creatinine 5.83 H* Estim Creat Clear Calc 9.8 Estimated GFR 7 Random Glucose 103 Calcium 6.1 L D Phosphorus 2.3 L Magnesium 1.8 Total Bilirubin 0.4 AST 45 H ALT 19 Alkaline Phosphatase 53 B-Natriuretic Peptide Total Protein 5.8 L Albumin 2.7 L Microbiology Microbiology Results: Microbiology 12/29/23 12:34 Blood - Venous Blood Culture - Preliminary No growth after 24 hours. 12/29/23 18:29 Urine clean catch - Clean Catch Midstream Urine Culture - Preliminary No growth to date. 12/29/23 13:10 Blood - Venous Blood Culture - Preliminary Prelim: GNR Gram Stain only Procedures Date of Service Date of Service: 12/31/23 Assessment & Plan Assessment and plan (1) Acute renal failure: Status: Acute (2) Acute hypokalemia: Status: Acute (3) Metabolic acidosis: Status: Acute (4) Breast cancer metastasized to bone: Status: Acute Plan Acute renal failure most likely due to ATN from hypoperfusion (volume loss from severe diarrhea) Improving no obstruction on imaging, sherman draining urine differentials include ATN from hypovolemia secondary to GI losses from severe diarrhea may also consider AIN (CDK4/6 inhibitor recently started, also on aromatase inhibitor), AGN co-occurring with ATN may also consider TLS, though less likely with normal lactate and improving renal function with hydration recommend close blood pressure and I&O monitoring recommend avoiding nephrotoxins No absolute indication for renal replacement at this time continue with current regimen, including IVF will continue to follow Discussed with Dr Bledsoe Time Spent With Patient Time: Total time managing care of this patient today ____ minutes. Progress Note: Quality Stroke Does the patient have a stroke diagnosis?: No
--- NOTE | 2023-12-31 08:29 | PM.CCPN ---
Subjective Subjective Date of Service: 12/31/23 Critical Care Time (minutes): 35 Comment: renal function slowly improving episodes of agitation for which she got Dilaudid after which she is drowsy Physical Exam Vital Signs: Vital Signs: Last Vital Signs Temp 97.5 F 12/31/23 08:00 Pulse 91 12/31/23 08:00 Resp 20 12/31/23 08:00 BP 95/54 L 12/31/23 08:00 Pulse Ox 96 12/31/23 08:00 O2 Del Method Oxymask 12/31/23 08:00 O2 Flow Rate 2 12/31/23 08:00 BMI result Body Mass Index 32.5 General:, ill appearing and tired appearing Nutritional Appearance: well nourished and overweight Eyes: appearance normal, both eyes and all related structures; Alignment and Position: alignment normal and position normal Neck: No lymphadenopathy, no thyromegaly Resp: bilateral air entry equal, occasional added sounds present in the lung bases Cardio: Regular rate, regular rhythm; Heart sounds: S1 normal heart sound present and S2 normal heart sound present GI: soft, nontender, no guarding, no hepatosplenomegaly : bladder normal to inspection, bladder normal to palpation, no renal angle tenderness Skin: no rashes or lesions noted and elasticity normal Neuro: agitated, not following any commands, no focal deficits Objective Data Labs 12/31/23 04:36 12/31/23 04:36 Labs: Laboratory Results - last 24 hr 12/30/23 12/30/23 12/30/23 11:08 11:23 14:33 WBC 2.4 L RBC 3.49 L Hgb 10.3 L Hct 28.7 L MCV 82.2 MCH 29.5 MCHC 35.9 H RDW 15.1 Plt Count 157 L D MPV 9.5 Immature Gran % (Auto) Neut % (Auto) Lymph % (Auto) [place] % (Auto) Eos % (Auto) Baso % (Auto) Lymph # (Auto) [place] # (Auto) Eos # (Auto) Baso # (Auto) Abs Immat Gran (auto) Absolute Neuts (auto) Absolute Nucleated RBC 0.000 Nucleated RBC % (auto) 0.0 Neutrophils % (Manual) Band Neutrophils % Lymphocytes % (Manual) Monocytes % (Manual) Eosinophils % (Manual) Abs Neuts (Manual) Lymphocytes # (Manual) Monocytes # (Manual) Dohle Bodies Platelet Estimate Plt Morphology Comment RBC Morphology Target Cells Ovalocytes VBG pH 7.36 VBG pCO2 23 VBG pO2 124 VBG HCO3 13 L VBG O2 Saturation 100.0 VBG Base Excess -10.1 Sodium 136 137 Potassium 3.1 L 2.6 L* Chloride 102 94 L Carbon Dioxide 13 L 23 Anion Gap 24 H 23 H BUN 130 H 124 H Creatinine 8.75 H* 7.94 H* Estim Creat Clear Calc 6.5 7.2 Estimated GFR 5 5 Random Glucose 204 H 359 H* Calcium 5.6 L* D 5.4 L* Phosphorus Magnesium Total Bilirubin 0.3 0.3 AST 57 H 53 H ALT 24 25 Alkaline Phosphatase 62 58 B-Natriuretic Peptide 1544 H Total Protein 6.3 L 5.8 L Albumin 2.9 L 2.7 L 12/31/23 12/31/23 04:32 04:36 WBC 2.7 L RBC 3.33 L Hgb 9.9 L Hct 26.9 L MCV 80.8 MCH 29.7 MCHC 36.8 H RDW 14.2 Plt Count 128 L MPV 9.7 Immature Gran % (Auto) Cancelled Neut % (Auto) Cancelled Lymph % (Auto) Cancelled [place] % (Auto) Cancelled Eos % (Auto) Cancelled Baso % (Auto) Cancelled Lymph # (Auto) Cancelled [place] # (Auto) Cancelled Eos # (Auto) Cancelled Baso # (Auto) Cancelled Abs Immat Gran (auto) Cancelled Absolute Neuts (auto) Cancelled Absolute Nucleated RBC 0.000 Nucleated RBC % (auto) 0.0 Neutrophils % (Manual) 64 Band Neutrophils % 6 H Lymphocytes % (Manual) 26 Monocytes % (Manual) 3 Eosinophils % (Manual) 1 Abs Neuts (Manual) 1.9 L Lymphocytes # (Manual) 0.7 L Monocytes # (Manual) 0.1 Dohle Bodies PRESENT Platelet Estimate DECREASED Plt Morphology Comment NORM RBC Morphology NOTED Target Cells 1+ (5-14) Ovalocytes 1+ (5-14) VBG pH 7.62 H* VBG pCO2 32 VBG pO2 45 VBG HCO3 33 H VBG O2 Saturation 81.0 VBG Base Excess 12.3 Sodium 140 Potassium 3.3 D Chloride 93 L Carbon Dioxide 30 H Anion Gap 20 BUN 115 H Creatinine 5.83 H* Estim Creat Clear Calc 9.8 Estimated GFR 7 Random Glucose 103 Calcium 6.1 L D Phosphorus 2.3 L Magnesium 1.8 Total Bilirubin 0.4 AST 45 H ALT 19 Alkaline Phosphatase 53 B-Natriuretic Peptide Total Protein 5.8 L Albumin 2.7 L Microbiology Microbiology Results: Microbiology 12/29/23 12:34 Blood - Venous Blood Culture - Preliminary No growth after 24 hours. 12/29/23 18:29 Urine clean catch - Clean Catch Midstream Urine Culture - Preliminary No growth to date. 12/29/23 13:10 Blood - Venous Blood Culture - Preliminary Prelim: GNR Gram Stain only Progress Note: A&P Assessment and plan (1) Adult failure to thrive: Status: Acute (2) Acute renal failure: Status: Acute (3) Hypocalcemia: Status: Acute (4) Volume depletion: Status: Acute (5) Metabolic acidosis: Status: Acute (6) Breast cancer metastasized to bone: Status: Acute (7) Pneumothorax, right: Status: Acute Plan Acute kidney injury: Severe metabolic acidosis: Patient has acute kidney injury secondary to CPA nausea vomiting and diarrhea possibly secondary to chemotherapy Renal function improving with fluid replacement. Most recent bicarb is 30 with metabolic alkalosis upon the morning VBG so sodium bicarbonate was stopped. we will switch the fluids to LR. Bedside echo showing IVC small and collapsing, RV small, normal LV function Acute respiratory failure: Secondary to severe metabolic acidosis leading to hyper ventilation, which is improved after correcting the acidosis Status post chest tube placement for large right-sided hydropneumothorax Breast cancer with metastasis: His PET scans in November showed hydronephrosis with multiple peritoneal metastasis and some ascites. He has been started on new oral chemotherapy and the CT scan from yesterday showed normal kidneys with no hydronephrosis and no ascites was seen. Explained the family that based on the CT images there has been some improvement in the metastatic symptoms in the abdomen, would continue the chemotherapy with a adjunct support for GI symptoms once the renal function improves and her mental status is better Prophylaxis: Heparin, pantoprazole Code status: DNI DNR Quality Stroke Does the patient have a stroke diagnosis?: No VTE Prior VTE?: No VTE Risk Level:: Medical - moderate - high VTE Device Contraindication: Treatment Not Indicated VTE Drug Contraindication: N/A - Med Ordered
[2023-12-31] MEDS: Potassium Phosphate/NS 15 MMOL/250 ML PLAST..BAG 62.5 MMOL IV ×2 (10:28→15:34)
[2023-12-31] MEDS: Heparin Sodium,Porcine 5,000 UNIT/ML VIAL 5000 UNIT SUBCUT ×2 (10:29→20:38)
[2023-12-31] MEDS: Lactated Ringers 1,000 ML 999 ML IV (11:19)
[2023-12-31] MEDS: Lactated Ringers 1,000 ML 100 ML IVCONT ×2 (11:21→21:03)
[2023-12-31] MEDS: Norepinephrine Bitartrate/D5W 8 MG/250 ML PLAST..BAG 10.6 MG IVCONT (21:01)
[2023-12-31] MEDS: Albuterol/Iprat 2.5/0.5MG 3 ML AMPUL.NEB INHALE (23:39)
[2023-12-31] MEDS: Albumin Human 25 % 100 ML IV (23:42)
[2024-01-01] VITALS (31 sets, daily range): BP systolic 97–132; BP diastolic 55–86; PULSE 66–126; RESP 11–40; TEMP 36.5–37.7; O2SAT 92–97; BMI 31.6
[2024-01-01] MEDS: Albumin Human 25 % 100 ML IV ×2 (01:01→20:35)
[2024-01-01] MEDS: HYDROmorphone HCl 0.5 MG/0.5 ML SYRINGE IVPUSH ×2 (02:52→20:25)
[2024-01-01 04:25] LABS: VBG Base Excess 13.8 mmol/L; VBG HCO3 37 mmol/L (22-26); VBG pCO2 43 mmHg; VBG pH 7.54 (7.32-7.43); VBG pO2 64 mmHg
[2024-01-01] MEDS: Albuterol/Iprat 2.5/0.5MG 3 ML AMPUL.NEB INHALE ×4 (04:29→23:27)
[2024-01-01 04:49] LABS: Venous Blood Gas Refer to POC result
[2024-01-01 04:58] LABS: Hematocrit 23.6 % (37.0-47.0); Hemoglobin 8.4 g/dl (12.0-16.0); Mean Corpuscular HGB Conc 35.6 g/dl (31.0-35.0); Mean Corpuscular Hemoglobin 29.9 pg (27.0-33.0); Mean Platelet Volume 10.1 fL (9.4-12.3); Red Blood Count 2.81 X10*6/uL (4.20-5.50); Red Cell Distribution Width 14.6 % (11.0-16.0)
[2024-01-01 05:10] LABS: Platelet Count 76 X10*3/uL (160-400); White Blood Count 2.2 X10*3/uL (4.8-10.8)
[2024-01-01 05:23] LABS: Alanine Aminotransferase 19 U/L (0-31); Albumin Level 3.3 g/dL (3.5-5.0); Anion Gap 20 (12-20); Aspartate Amino Transferase 45 U/L (5-31); Bilirubin Total 0.5 mg/dL (0.0-1.0); Blood Urea Nitrogen 70 mg/dL (9-16); Calcium 5.9 mg/dL (8.4-10.2); Carbon Dioxide 29 mmol/L (22-29); Chloride 100 mmol/L (96-108); Estimated Glomerular Filt Rate 17; Glucose Random 115 mg/dL (60-115); Magnesium 1.5 mg/dL (1.6-2.6); Phosphorus 2.8 mg/dL (2.7-4.5); Potassium 3.1 mmol/L (3.3-5.1); Sodium 146 mmol/L (135-145); Total Protein 5.8 g/dL (6.5-8.0)
[2024-01-01 05:31] LABS: Alkaline Phosphatase 41 U/L (39-117)
[2024-01-01 05:34] LABS: Band Neutrophils Percent 8 % (3-5); Large Platelet PRESENT; Lymphocytes Absolute Manual 0.4 X10*3/uL (1.2-4.9); Lymphocytes Percent Manual 20 % (20-40); Monocytes Percent Manual 1 % (2-11); Neutrophils Absolute Manual 1.7 X10*3/uL (2.0-8.3); Neutrophils Percent Manual 71 % (45-73); Platelet Estimate DECREASED (NORMAL); Platelet Morphology Comment NOTED; RBC Morphology NOTED
[2024-01-01 05:35] LABS: Ovalocytes 1+ (5-14) /OIF; Schistocytes 1+ (0-2) /OIF; Stomatocytes 1+ (5-14) /OIF
[2024-01-01 05:36] LABS: Dohle Bodies PRESENT; Target Cells 1+ (5-14) /OIF; Toxic Granulation PRESENT; Toxic Vacuolation PRESENT
[2024-01-01] MEDS: Calcium Gluconate/NaCl,Iso-Osm 2 GM/100 ML PLAST..BAG IV ×3 (05:54→20:39)
[2024-01-01] MEDS: Magnesium Sulfate/H2O 2 GM/50 ML PIGGYBACK IV ×2 (06:03→21:41)
[2024-01-01] MEDS: Lactated Ringers 1,000 ML 100 ML IVCONT (06:10)
[2024-01-01] MEDS: Potassium Chloride/H20 10 MEQ/100 ML PIGGYBACK 100 MEQ IV ×2 (06:10→07:13)
--- NOTE | 2024-01-01 07:50 | P.PNNP_ITS ---
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 Presented 12/28 with shortness of breath, failure to thrive (not eating for 3-4 days but has been drinking lots of bottled water per fiance), increased pain (back, lower abdomen and hip). creatinine on 12/16 was 1.71 labs on 12/28: Na 133, K 2.4, CO2 13, AG 29, BUN 155, creatinine 11.65 creatinine trending down, 12/29 was 7.94 and 12/30 is 5.83 12/31 creatinine 2.82 serum bicarb has normalized; K 3.1 for which pt is receiving IV potassium replacement pt now on LR @100mL/hr CT abdomen/pelvis 12/28 kidneys/ureters unremarkable without hydronephrosis, hydroureter, calculi. Pt awakens to voice this a.m. and is conversant. She states her breathing is slightly uncomfortable, has some continued lower abdominal pain but feels it has improved. Physical Exam 2 Vital Signs: Vital Signs: Last Vital Signs Temp 97.7 F 12/31/23 20:00 Pulse 119 H 01/01/24 08:25 Resp 26 H 01/01/24 08:00 BP 122/68 01/01/24 08:25 Pulse Ox 94 01/01/24 08:00 O2 Del Method BiPAP 01/01/24 08:00 O2 Flow Rate 2 01/01/24 07:00 BMI result Body Mass Index 31.6 Const: General: alert and awake Neck: Neck: Yes no JVD Resp: Effort & Inspection: normal respiratory effort and able to speak in complete sentences Auscultation: rhonchi Cardio: Jugular venous distension: no JVD Rate: regular rate Rhythm: r egular rhythm Heart sounds: S1 normal heart sound present and S2 normal heart sound present GI: Palpation (GI): Soft to palpation and Tenderness to palpation present (GI) (reports mild tenderness to palpation, generalized ) Skin: Lesions: no lesions Rashes: no rashes Neuro: Other: no tremors, myoclonus Extrem: General: No edema Objective Data Labs 01/01/24 04:13 01/01/24 04:13 Labs: Laboratory Results - last 24 hr 01/01/24 01/01/24 04:13 04:14 WBC 2.2 L RBC 2.81 L Hgb 8.4 L Hct 23.6 L MCV 84.0 MCH 29.9 MCHC 35.6 H RDW 14.6 Plt Count 76 L D MPV 10.1 Immature Gran % (Auto) Cancelled Neut % (Auto) Cancelled Lymph % (Auto) Cancelled [place] % (Auto) Cancelled Eos % (Auto) Cancelled Baso % (Auto) Cancelled Lymph # (Auto) Cancelled [place] # (Auto) Cancelled Eos # (Auto) Cancelled Baso # (Auto) Cancelled Abs Immat Gran (auto) Cancelled Absolute Neuts (auto) Cancelled Absolute Nucleated RBC 0.000 Nucleated RBC % (auto) 0.0 Neutrophils % (Manual) 71 Band Neutrophils % 8 H Lymphocytes % (Manual) 20 Monocytes % (Manual) 1 L Abs Neuts (Manual) 1.7 L Lymphocytes # (Manual) 0.4 L Toxic Granulation PRESENT Toxic Vacuolation PRESENT Dohle Bodies PRESENT Platelet Estimate DECREASED Large Platelets PRESENT Plt Morphology Comment NOTED RBC Morphology NOTED Target Cells 1+ (5-14) Ovalocytes 1+ (5-14) Stomatocytes 1+ (5-14) Schistocytes 1+ (0-2) VBG pH 7.54 H VBG pCO2 43 VBG pO2 64 VBG HCO3 37 H VBG O2 Saturation 95.0 VBG Base Excess 13.8 Sodium 146 H Potassium 3.1 L Chloride 100 Carbon Dioxide 29 Anion Gap 20 BUN 70 H Creatinine 2.82 H Estim Creat Clear Calc 20.0 Estimated GFR 17 Random Glucose 115 Calcium 5.9 L* Phosphorus 2.8 Magnesium 1.5 L Total Bilirubin 0.5 AST 45 H ALT 19 Alkaline Phosphatase 41 Total Protein 5.8 L Albumin 3.3 L Microbiology Microbiology Results: Microbiology 12/29/23 13:10 Blood - Venous Blood Culture - Preliminary Gram negative maximiliano 12/29/23 12:34 Blood - Venous Blood Culture - Preliminary No growth after 48 hours. 12/29/23 18:29 Urine clean catch - Clean Catch Midstream Urine Culture - Final No growth. Procedures Date of Service Date of Service: 01/01/24 Assessment & Plan Assessment and plan (1) Acute renal failure: Status: Acute (2) Acute hypokalemia: Status: Acute (3) Metabolic acidosis: Status: Acute (4) Breast cancer metastasized to bone: Status: Acute Plan Acute renal failure most likely due to ATN from hypoperfusion (volume loss from severe diarrhea) Improving no obstruction on imaging, sherman draining urine differentials include ATN from hypovolemia secondary to GI losses from severe diarrhea may also consider AIN (CDK4/6 inhibitor recently started, also on aromatase inhibitor), AGN co-occurring with ATN may also consider TLS, though less likely with normal lactate and improving renal function with hydration recommend close blood pressure and I&O monitoring recommend avoiding nephrotoxins recommend continue IV hydration No absolute indication for renal replacement at this time continue with current regimen will continue to follow Discussed with Dr Bledsoe Time Spent With Patient Time: Total time managing care of this patient today ____ minutes. Progress Note: Quality Stroke Does the patient have a stroke diagnosis?: No
[2024-01-01] MEDS: Heparin Sodium,Porcine 5,000 UNIT/ML VIAL 5000 UNIT SUBCUT ×2 (08:12→20:47)
--- NOTE | 2024-01-01 08:48 | P.PNCC_ITS ---
Subjective Subjective Date of Service: 01/01/24 Critical Care Time (minutes): 35 Comment: Renal function improving, creatinine 2.8 today. Mental status is also better Turned off Levophed this morning Physical Exam 2 Vital Signs: Vital Signs: Last Vital Signs Temp 97.7 F 12/31/23 20:00 Pulse 119 H 01/01/24 08:25 Resp 26 H 01/01/24 08:00 BP 122/68 01/01/24 08:25 Pulse Ox 94 01/01/24 08:00 O2 Del Method BiPAP 01/01/24 08:00 O2 Flow Rate 2 01/01/24 07:00 BMI result Body Mass Index 31.6 General: Chronically ill appearing and tired appearing Nutritional Appearance: well nourished and overweight Eyes: appearance normal, both eyes and all related structures; Alignment and Position: alignment normal and position normal Neck: No lymphadenopathy, no thyromegaly Resp: bilateral air entry equal, occasional added sounds present Cardio: Regular rate, regular rhythm; Heart sounds: S1 normal heart sound present and S2 normal heart sound present GI: soft, nontender, no guarding, no hepatosplenomegaly : bladder normal to inspection, bladder normal to palpation, no renal angle tenderness Skin: no rashes or lesions noted and elasticity normal Neuro: oriented to person, oriented to place, oriented to time and moves all extremities Objective Data Labs 01/01/24 04:13 01/01/24 04:13 Labs: Laboratory Results - last 24 hr 01/01/24 01/01/24 04:13 04:14 WBC 2.2 L RBC 2.81 L Hgb 8.4 L Hct 23.6 L MCV 84.0 MCH 29.9 MCHC 35.6 H RDW 14.6 Plt Count 76 L D MPV 10.1 Immature Gran % (Auto) Cancelled Neut % (Auto) Cancelled Lymph % (Auto) Cancelled [place] % (Auto) Cancelled Eos % (Auto) Cancelled Baso % (Auto) Cancelled Lymph # (Auto) Cancelled [place] # (Auto) Cancelled Eos # (Auto) Cancelled Baso # (Auto) Cancelled Abs Immat Gran (auto) Cancelled Absolute Neuts (auto) Cancelled Absolute Nucleated RBC 0.000 Nucleated RBC % (auto) 0.0 Neutrophils % (Manual) 71 Band Neutrophils % 8 H Lymphocytes % (Manual) 20 Monocytes % (Manual) 1 L Abs Neuts (Manual) 1.7 L Lymphocytes # (Manual) 0.4 L Toxic Granulation PRESENT Toxic Vacuolation PRESENT Dohle Bodies PRESENT Platelet Estimate DECREASED Large Platelets PRESENT Plt Morphology Comment NOTED RBC Morphology NOTED Target Cells 1+ (5-14) Ovalocytes 1+ (5-14) Stomatocytes 1+ (5-14) Schistocytes 1+ (0-2) VBG pH 7.54 H VBG pCO2 43 VBG pO2 64 VBG HCO3 37 H VBG O2 Saturation 95.0 VBG Base Excess 13.8 Sodium 146 H Potassium 3.1 L Chloride 100 Carbon Dioxide 29 Anion Gap 20 BUN 70 H Creatinine 2.82 H Estim Creat Clear Calc 20.0 Estimated GFR 17 Random Glucose 115 Calcium 5.9 L* Phosphorus 2.8 Magnesium 1.5 L Total Bilirubin 0.5 AST 45 H ALT 19 Alkaline Phosphatase 41 Total Protein 5.8 L Albumin 3.3 L Microbiology Microbiology Results: Microbiology 12/29/23 13:10 Blood - Venous Blood Culture - Preliminary Gram negative maximiliano 12/29/23 12:34 Blood - Venous Blood Culture - Preliminary No growth after 48 hours. 12/29/23 18:29 Urine clean catch - Clean Catch Midstream Urine Culture - Final No growth. Progress Note: A&P Assessment and plan (1) Acute renal failure: Status: Acute (2) Acute hypokalemia: Status: Acute (3) Hypocalcemia: Status: Acute (4) Volume depletion: Status: Acute (5) Pneumothorax, right: Status: Acute (6) Metabolic acidosis: Status: Acute (7) Breast cancer metastasized to bone: Status: Acute (8) Adult failure to thrive: Status: Acute Plan Acute kidney injury: Severe metabolic acidosis: Patient has acute kidney injury secondary to nausea vomiting and diarrhea possibly secondary to chemotherapy Renal function improving with fluid replacement; creatinine down to 2.85 this morning. bicarb is 29 with metabolic alkalosis upon the morning VBG; possibly partly contraction alkalosis given hypernatremia; continue LR. Bedside echo showing IVC small and collapsing, RV small, normal LV function Acute respiratory failure: Secondary to severe metabolic acidosis leading to hyper ventilation, which is improved after correcting the acidosis Status post chest tube placement for large right-sided hydropneumothorax Breast cancer with metastasis: His PET scans in November showed hydronephrosis with multiple peritoneal metastasis and some ascites. He has been started on new oral chemotherapy and the CT scan from yesterday showed normal kidneys with no hydronephrosis and no ascites was seen. Explained the family that based on the CT images there has been some improvement in the metastatic symptoms in the abdomen, would continue the chemotherapy with a adjunct support for GI symptoms once the renal function improves and her mental status is better Hypocalcemia: We will replace calcium gluconate will replete magnesium too Prophylaxis: Heparin, pantoprazole Code status: DNI DNR Quality Stroke Does the patient have a stroke diagnosis?: No VTE Prior VTE?: No VTE Risk Level:: Medical - moderate - high VTE Device Contraindication: Treatment Not Indicated VTE Drug Contraindication: N/A - Med Ordered
[2024-01-01] MEDS: fentaNYL citrate/PF 100 MCG/2 ML VIAL 50 MCG IVPUSH ×2 (10:40→18:58)
[2024-01-01 13:23] LABS: Anion Gap 18 (12-20); Blood Urea Nitrogen 53 mg/dL (9-16); Calcium 6.4 mg/dL (8.4-10.2); Carbon Dioxide 28 mmol/L (22-29); Chloride 104 mmol/L (96-108); Creatinine Clr Calc Pharmacy 30.3; Estimated Glomerular Filt Rate 27; Glucose Random 144 mg/dL (60-115); Potassium 3.3 mmol/L (3.3-5.1); Sodium 147 mmol/L (135-145)
[2024-01-01 13:24] LABS: Anion Gap 17 (12-20); Blood Urea Nitrogen 54 mg/dL (9-16); Calcium 6.3 mg/dL (8.4-10.2); Carbon Dioxide 30 mmol/L (22-29); Chloride 103 mmol/L (96-108); Creatinine Clr Calc Pharmacy 29.9; Estimated Glomerular Filt Rate 27; Glucose Random 145 mg/dL (60-115); Magnesium 2.1 mg/dL (1.6-2.6); Potassium 3.3 mmol/L (3.3-5.1); Sodium 147 mmol/L (135-145)
[2024-01-01] MEDS: Lactated Ringers 1,000 ML 125 ML IVCONT (14:40)
--- NOTE | 2024-01-01 14:47 | MHC.CM.PN ---
Pt continues care in ICU: Goals of care today are to trial pt off pressors and possibly transfer to the medical floor over the weekend.
--- NOTE | 2024-01-01 15:03 | MHC.CM.PN ---
Spoke w/pts HCP/partner Delmar who states pt has no DME or services and that he assists her with any needs. Delmar strongly states pt will return to home with his assistance and he is not interested in any other options at this point. CM to follow.
[2024-01-01] MEDS: 0.9 % Sodium Chloride Flush 3 ML SYRINGE IVFLUSH (17:08)
--- NOTE | 2024-01-01 17:38 | MHC.SL.SWA ---
Speech Pathologist Impression: Odynophagia Risk of Aspiration Due to: Medically Fragile Poor PO Intake Dysphasia Diet Status: No Change at this time Liquid Consistency and Strategies for Safe Swallow: Liquid Intake Recommendation: NPO Solid Food Consistency: Dietary Recommendations: NPO Additional Modifications to Solid Foods: Patient failed her nurse swallow screening this morning and was referred to Speech Therapy for further assessment. Patient reports constant significant pain in her throat, which worsens with swallowing. Her mouth appeared very dry and she had dried blood and dark debris in both cheeks and on her teeth and lips. PROCEDURAL NURSE attempted to provide oral care to moisten mucosa and remove some debris, but patient did not tolerate this d/t pain. She only accepted very trace amounts of PO. Patient w/ weak labial seal, some spilling anteriorly. Patient was able to propel bolus and elicited a swallow after a mild delay. She exhibited multiple effortful swallow attempts, grimaced and leaned her head forward with swallowing, gurgled after swallowing trace water, and refused to eat or drink any more d/t pain. Patient was unable to participate in full swallow exam and remains NPO d/t swallow difficulty/pain with swallowing. Continue aspiration precautions- provide oral care as tolerated, elevate HoB. Discussed w/ Dr. Herrera- PROCEDURAL NURSE available for call-in tomorrow morning if needed. Oral Medication Intake: NPO Please contact the pharmacy regarding appropriate crushable or liquid drug formulations that are available whenever modified delivery is recommended. Supervision While Eating and Drinking for Safe Swallow: PO with PROCEDURAL NURSE Recommendation for Speech: Inpatient Speech Therapy Comment: Re-assess when appropriate Frequency/Duration: Date Range for Service Req: Timeline to reassess: Chucking Machine Operator Clinican/Clinical Fellow: No Supervisory Statement: I have reviewed and agree with the student/clinical fellow's documentation: N/A Speech Language Pathologist: Annmarie Maria M.A., [facility]-PROCEDURAL NURSE
[2024-01-01] MEDS: OLANZapine 10 MG VIAL IM (19:39)
[2024-01-01] MEDS: Metoprolol Tartrate 5 MG/5 ML VIAL 2.5 MG IVPUSH (20:47)
[2024-01-01] MEDS: Albumin Human 25 % 100 ML 600 ML IV (20:54)
[2024-01-01 21:18] LABS: Parathyroid Hormone Intact 861.4 pg/mL (8.7-77.1)
[2024-01-01 21:27] LABS: Alanine Aminotransferase 25 U/L (0-31); Albumin Level 3.1 g/dL (3.5-5.0); Alkaline Phosphatase 41 U/L (39-117); Anion Gap 20 (12-20); Aspartate Amino Transferase 51 U/L (5-31); Bilirubin Total 0.8 mg/dL (0.0-1.0); Blood Urea Nitrogen 40 mg/dL (9-16); Calcium 7.2 mg/dL (8.4-10.2); Carbon Dioxide 27 mmol/L (22-29); Chloride 104 mmol/L (96-108); Creatinine Clr Calc Pharmacy 37.4; Estimated Glomerular Filt Rate 35; Glucose Random 165 mg/dL (60-115); Lipase 45 U/L (8-78); Magnesium 1.8 mg/dL (1.6-2.6); Sodium 148 mmol/L (135-145); Total Protein 5.8 g/dL (6.5-8.0)
[2024-01-01] MEDS: Potassium Phosphate/NS 15 MMOL/250 ML PLAST..BAG 62.5 MMOL IV (21:50)
[2024-01-01] MEDS: Dextrose 5 % and Lactated Ring 1,000 ML 80 ML IVCONT (22:19)
[2024-01-02] VITALS (41 sets, daily range): BP systolic 96–132; BP diastolic 56–93; PULSE 95–155; RESP 12–40; TEMP 36.2–36.7; O2SAT 90–96; BMI 31.1
[2024-01-02] MEDS: 0.9 % Sodium Chloride Flush 3 ML SYRINGE IVFLUSH ×3 (00:29→17:00)
[2024-01-02] MEDS: Albumin Human 25 % 100 ML IV ×2 (00:29→01:34)
[2024-01-02] MEDS: cefTRIAXone sodium 1 GM VIAL IVPUSH (00:32)
[2024-01-02] MEDS: HYDROmorphone HCl 0.5 MG/0.5 ML SYRINGE IVPUSH ×5 (01:13→18:13)
[2024-01-02] MEDS: methylPREDNISolone Sod Succ 125 MG/2 ML VIAL IVPUSH (01:33)
[2024-01-02] MEDS: Potassium Phosphate/NS 15 MMOL/250 ML PLAST..BAG 62.5 MMOL IV (01:33)
[2024-01-02] MEDS: HYDROmorphone HCl 0.5 MG/0.5 ML SYRINGE 0.25 MG IVPUSH ×4 (04:01→23:52)
[2024-01-02 04:37] LABS: VBG Base Excess 3.8 mmol/L; VBG HCO3 27 mmol/L (22-26); VBG pCO2 39 mmHg; VBG pH 7.45 (7.32-7.43); VBG pO2 60 mmHg
[2024-01-02 04:38] LABS: Venous Blood Gas Refer to POC result
[2024-01-02] MEDS: Albuterol/Iprat 2.5/0.5MG 3 ML AMPUL.NEB INHALE ×4 (04:49→19:31)
[2024-01-02 04:53] LABS: Hematocrit 22.6 % (37.0-47.0); Hemoglobin 7.5 g/dl (12.0-16.0); Imm Gran Abs Auto 0.03 X10*3/uL (0.00-0.03); Imm Gran Pct Auto 1.8 % (0.0-0.4); Lymphocytes Absolute Auto 0.5 X10*3/uL (1.2-4.9); Lymphocytes Percent Auto 30.6 % (20-40); MANUAL DIFF FLAG SCAN; Mean Corpuscular HGB Conc 33.2 g/dl (31.0-35.0); Mean Corpuscular Hemoglobin 29.6 pg (27.0-33.0); Mean Corpuscular Volume 89.3 fL (80.0-98.0); Mean Platelet Volume 10.2 fL (9.4-12.3); Monocytes Percent Auto 2.4 % (2-11); Neutrophils Absolute Auto 1.1 x10*3/uL (2.0-8.3); Neutrophils Percent Auto 65.2 % (45-73); Red Blood Count 2.53 X10*6/uL (4.20-5.50); SCAN SMEAR FLAG 1
[2024-01-02 05:09] LABS: White Blood Count 1.7 X10*3/uL (4.8-10.8)
[2024-01-02 05:10] LABS: Alanine Aminotransferase 21 U/L (0-31); Albumin Level 4.5 g/dL (3.5-5.0); Alkaline Phosphatase 30 U/L (39-117); Anion Gap 21 (12-20); Aspartate Amino Transferase 39 U/L (5-31); Bilirubin Total 0.8 mg/dL (0.0-1.0); Blood Urea Nitrogen 36 mg/dL (9-16); Calcium 7.9 mg/dL (8.4-10.2); Carbon Dioxide 26 mmol/L (22-29); Chloride 107 mmol/L (96-108); Creatinine Clr Calc Pharmacy 35.3; Estimated Glomerular Filt Rate 33; Glucose Random 242 mg/dL (60-115); Magnesium 2.5 mg/dL (1.6-2.6); Phosphorus 4.1 mg/dL (2.7-4.5); Platelet Count 54 X10*3/uL (160-400); Potassium 3.6 mmol/L (3.3-5.1); Sodium 150 mmol/L (135-145); Total Protein 6.5 g/dL (6.5-8.0)
[2024-01-02 05:13] LABS: SLIDE REVIEW VERIFIED
[2024-01-02] MEDS: fentaNYL citrate/PF 100 MCG/2 ML VIAL 50 MCG IVPUSH (06:36)
[2024-01-02] MEDS: Furosemide 40 MG/4 ML VIAL IVPUSH ×2 (08:04→14:03)
[2024-01-02] MEDS: Calcium Gluconate/NaCl,Iso-Osm 1 GM/50 ML PLAST..BAG IV (08:07)
[2024-01-02] MEDS: Heparin Sodium,Porcine 5,000 UNIT/ML VIAL 5000 UNIT SUBCUT ×2 (08:08→20:29)
--- NOTE | 2024-01-02 10:38 | PM.CCPN ---
Subjective Subjective Date of Service: 01/02/24 Critical Care Time (minutes): 35 Physical Exam Vital Signs: Vital Signs: Last Vital Signs Temp 97.9 F 01/02/24 08:00 Pulse 120 H 01/02/24 10:00 Resp 18 01/02/24 10:00 BP 127/89 01/02/24 10:00 Pulse Ox 94 01/02/24 10:00 O2 Del Method Oxymask 01/02/24 10:00 O2 Flow Rate 7 01/02/24 10:00 BMI result Body Mass Index 31.1 General: Chronically ill appearing and tired appearing Nutritional Appearance: well nourished and nor weight Eyes: appearance normal, both eyes and all related structures; Alignment and Position: alignment normal and position normal Neck: No lymphadenopathy, no thyromegaly Resp: bilateral air entry equal, occasional added sounds present Cardio: Regular rate, regular rhythm; Heart sounds: S1 normal heart sound present and S2 normal heart sound present GI: soft, nontender, no guarding, no hepatosplenomegaly : bladder normal to inspection, bladder normal to palpation, no renal angle tenderness Skin: no rashes or lesions noted and elasticity normal Neuro: oriented to self, confused, no focal deficits Objective Data Labs 01/02/24 04:32 01/02/24 04:32 Labs: Laboratory Results - last 24 hr 01/01/24 01/01/24 01/01/24 12:51 12:51 12:51 WBC RBC Hgb Hct MCV MCH MCHC RDW Plt Count MPV Immature Gran % (Auto) Neut % (Auto) Lymph % (Auto) [place] % (Auto) Eos % (Auto) Baso % (Auto) Lymph # (Auto) [place] # (Auto) Eos # (Auto) Baso # (Auto) Abs Immat Gran (auto) Absolute Neuts (auto) Absolute Nucleated RBC Nucleated RBC % (auto) Smear Tech's Comments VBG pH VBG pCO2 VBG pO2 VBG HCO3 VBG O2 Saturation VBG Base Excess Sodium 147 H 147 H Potassium 3.3 3.3 Chloride 103 Carbon Dioxide Anion Gap BUN Creatinine Estim Creat Clear Calc Estimated GFR Random Glucose Calcium Phosphorus Magnesium Total Bilirubin Direct Bilirubin AST ALT Alkaline Phosphatase Total Protein Albumin Lipase PTH Intact 01/01/24 01/01/24 01/01/24 12:51 12:51 12:51 WBC RBC Hgb Hct MCV MCH MCHC RDW Plt Count MPV Immature Gran % (Auto) Neut % (Auto) Lymph % (Auto) [place] % (Auto) Eos % (Auto) Baso % (Auto) Lymph # (Auto) [place] # (Auto) Eos # (Auto) Baso # (Auto) Abs Immat Gran (auto) Absolute Neuts (auto) Absolute Nucleated RBC Nucleated RBC % (auto) Smear Tech's Comments VBG pH VBG pCO2 VBG pO2 VBG HCO3 VBG O2 Saturation VBG Base Excess Sodium Potassium Chloride 104 Carbon Dioxide 30 H 28 Anion Gap 17 18 BUN 54 H Creatinine Estim Creat Clear Calc Estimated GFR Random Glucose Calcium Phosphorus Magnesium Total Bilirubin Direct Bilirubin AST ALT Alkaline Phosphatase Total Protein Albumin Lipase PTH Intact 01/01/24 01/01/24 01/01/24 12:51 12:51 12:51 WBC RBC Hgb Hct MCV MCH MCHC RDW Plt Count MPV Immature Gran % (Auto) Neut % (Auto) Lymph % (Auto) [place] % (Auto) Eos % (Auto) Baso % (Auto) Lymph # (Auto) [place] # (Auto) Eos # (Auto) Baso # (Auto) Abs Immat Gran (auto) Absolute Neuts (auto) Absolute Nucleated RBC Nucleated RBC % (auto) Smear Tech's Comments VBG pH VBG pCO2 VBG pO2 VBG HCO3 VBG O2 Saturation VBG Base Excess Sodium Potassium Chloride Carbon Dioxide Anion Gap BUN 53 H Creatinine 1.89 H 1.86 H Estim Creat Clear Calc 29.9 30.3 Estimated GFR 27 Random Glucose Calcium Phosphorus Magnesium Total Bilirubin Direct Bilirubin AST ALT Alkaline Phosphatase Total Protein Albumin Lipase PTH Intact 01/01/24 01/01/24 01/01/24 12:51 12:51 12:51 WBC RBC Hgb Hct MCV MCH MCHC RDW Plt Count MPV Immature Gran % (Auto) Neut % (Auto) Lymph % (Auto) [place] % (Auto) Eos % (Auto) Baso % (Auto) Lymph # (Auto) [place] # (Auto) Eos # (Auto) Baso # (Auto) Abs Immat Gran (auto) Absolute Neuts (auto) Absolute Nucleated RBC Nucleated RBC % (auto) Smear Tech's Comments VBG pH VBG pCO2 VBG pO2 VBG HCO3 VBG O2 Saturation VBG Base Excess Sodium Potassium Chloride Carbon Dioxide Anion Gap BUN Creatinine Estim Creat Clear Calc Estimated GFR 27 Random Glucose 145 H 144 H Calcium 6.3 L D 6.4 L Phosphorus Magnesium 2.1 Total Bilirubin Direct Bilirubin AST ALT Alkaline Phosphatase Total Protein Albumin Lipase PTH Intact 01/01/24 01/01/24 01/02/24 20:49 20:50 04:26 WBC RBC Hgb Hct MCV MCH MCHC RDW Plt Count MPV Immature Gran % (Auto) Neut % (Auto) Lymph % (Auto) [place] % (Auto) Eos % (Auto) Baso % (Auto) Lymph # (Auto) [place] # (Auto) Eos # (Auto) Baso # (Auto) Abs Immat Gran (auto) Absolute Neuts (auto) Absolute Nucleated RBC Nucleated RBC % (auto) Smear Tech's Comments VBG pH 7.45 H VBG pCO2 39 VBG pO2 60 VBG HCO3 27 H VBG O2 Saturation 89.0 VBG Base Excess 3.8 Sodium 148 H Potassium 3.0 L Chloride 104 Carbon Dioxide 27 Anion Gap 20 BUN 40 H Creatinine 1.51 H Estim Creat Clear Calc 37.4 Estimated GFR 35 Random Glucose 165 H Calcium 7.2 L D Phosphorus 2.0 L Cancelled Magnesium 1.8 Cancelled Total Bilirubin 0.8 Cancelled Direct Bilirubin Cancelled AST 51 H Cancelled ALT 25 Cancelled Alkaline Phosphatase 41 Cancelled Total Protein 5.8 L Cancelled Albumin 3.1 L Cancelled Lipase 45 Cancelled PTH Intact 861.4 H 01/02/24 04:32 WBC 1.7 L RBC 2.53 L Hgb 7.5 L Hct 22.6 L MCV 89.3 D MCH 29.6 MCHC 33.2 RDW 15.0 Plt Count 54 L D MPV 10.2 Immature Gran % (Auto) 1.8 H Neut % (Auto) 65.2 Lymph % (Auto) 30.6 [place] % (Auto) 2.4 Eos % (Auto) 0.0 Baso % (Auto) 0.0 Lymph # (Auto) 0.5 L [place] # (Auto) 0.0 L Eos # (Auto) 0.0 Baso # (Auto) 0.0 Abs Immat Gran (auto) 0.03 Absolute Neuts (auto) 1.1 L Absolute Nucleated RBC 0.000 Nucleated RBC % (auto) 0.0 Smear Tech's Comments VERIFIED VBG pH VBG pCO2 VBG pO2 VBG HCO3 VBG O2 Saturation VBG Base Excess Sodium 150 H Potassium 3.6 Chloride 107 Carbon Dioxide 26 Anion Gap 21 H BUN 36 H Creatinine 1.60 H Estim Creat Clear Calc 35.3 Estimated GFR 33 Random Glucose 242 H Calcium 7.9 L D Phosphorus 4.1 Magnesium 2.5 Total Bilirubin 0.8 Direct Bilirubin AST 39 H ALT 21 Alkaline Phosphatase 30 L Total Protein 6.5 Albumin 4.5 Lipase PTH Intact Microbiology Microbiology Results: Microbiology 12/29/23 13:10 Blood - Venous Blood Culture - Final Escherichia coli 12/31/23 14:36 Blood - Venous Blood Culture - Preliminary No growth after 24 hours. 12/31/23 14:30 Blood - Venous Blood Culture - Preliminary No growth after 24 hours. 12/29/23 12:34 Blood - Venous Blood Culture - Preliminary No growth after 48 hours. 12/29/23 18:29 Urine clean catch - Clean Catch Midstream Urine Culture - Final No growth. Progress Note: A&P Assessment and plan (1) Adult failure to thrive: Status: Acute (2) Acute renal failure: Status: Acute (3) Acute hypokalemia: Status: Acute (4) Hypocalcemia: Status: Acute (5) Metabolic acidosis: Status: Acute (6) Breast cancer metastasized to bone: Status: Acute (7) Pneumothorax, right: Status: Acute Plan Acute kidney injury: Severe metabolic acidosis: Patient has acute kidney injury secondary to nausea vomiting and diarrhea possibly secondary to chemotherapy Renal function improving with fluid replacement; creatinine improved to 1.6 this morning. bicarb is 29 with metabolic alkalosis upon the morning VBG; possibly partly contraction alkalosis given hypernatremia; we will switch the fluids from LR to D5 Bedside echo showing IVC small and collapsing, RV small, normal LV function Hypernatremia: Secondary to volume depletion and continuous LR We will switch the fluid to D5 at 75 cc/hour Acute respiratory failure: Secondary to severe metabolic acidosis leading to hyper ventilation, which is improved after correcting the acidosis Status post chest tube placement for large right-sided hydropneumothorax, we will remove the chest tube today Breast cancer with metastasis: His PET scans in November showed hydronephrosis with multiple peritoneal metastasis and some ascites. He has been started on new oral chemotherapy and the CT scan from yesterday showed normal kidneys with no hydronephrosis and no ascites was seen. Explained the family that based on the CT images there has been some improvement in the metastatic symptoms in the abdomen, would continue the chemotherapy with a adjunct support for GI symptoms once the renal function improves and her mental status is better Hypocalcemia: Improving with correction of magnesium, to 7.9 today. Infectious disease: Patient's neutrophil count is about 1100 She has severe mucositis in the oral mucosa, given her diarrhea she might possibly have gut mucositis too She has been started on magic mouthwash, antibiotics titrated to cefepime, fluconazole and acyclovir to cover fungal and herpes given her neutropenia. Prophylaxis: Heparin, pantoprazole Code status: DNI DNR Quality Stroke Does the patient have a stroke diagnosis?: No VTE Prior VTE?: No VTE Risk Level:: Medical - moderate - high VTE Device Contraindication: Treatment Not Indicated VTE Drug Contraindication: N/A - Med Ordered
[2024-01-02] MEDS: Dextrose 5 % 1,000 ML 75 ML IVCONT (10:54)
--- NOTE | 2024-01-02 11:41 | MHC.SL.SWA ---
Speech Pathologist Impression: Risk of Aspiration Due to: Medically Fragile Poor PO Intake Dysphasia Diet Status: Liquid Consistency and Strategies for Safe Swallow: Liquid Intake Recommendation: NPO Liquid Intake Strategies: Solid Food Consistency: Dietary Recommendations: NPO Additional Modifications to Solid Foods: Provide patient with single ice chips to dissolve in mouth to relieve pain, moisten mouth. Oral Medication Intake: NPO Please contact the pharmacy regarding appropriate crushable or liquid drug formulations that are available whenever modified delivery is recommended. Compensatory Strategies and Precautions to be Taken for Safe Swallow: Supervision While Eating and Drinking for Safe Swallow: PO with DENTAL LABORATORY SUPERVISOR Foods to Avoid: Swallowing Recommended Treatments: Ice chips for pain/mouth moisture. Recommendation for Speech: Inpatient Speech Therapy Comment: Patient seen this morning for repeat attempt at swallow assessment. Patient was on 02 mask, RN replaced with nasal cannula. Patient at onset appeared asleep but woke, was cooperative, but anxious and in pain. Patient allowed ginner helper to swab anterior of mouth with cold water, with ginner helper removing congealed blood and scabs on swab. Also lightly swabbed roof of mouth, tongue, with patient c/o pain. Patient then accepted ice chip, which she mostly held in mouth, with some limited lingual movement, with patient stating it's hot in my mouth, it will melt, and I won't choke on it. Patient noted ice gave some relief. When prompted to swallow, initiation appears somewhat effortful, but laryngeal elevation palpated, patient c/o pain on swallow. Patient given 1/4 tsp of water, with some escaping mouth due to decreased containment, delay initiating propelling liquid, effortful swallow likely due to pain. On second trial, patient noted to cough on swallow. Patient then declined any further trials. Due to pain, evident lesions in mouth, pain reported on swallow and effortful swallow, patient is not yet ready to be advanced to a diet. Recommend Continue NPO. Allow patient periodic single ice chips to moisten mouth and relieve pain, and trace amounts of water if requested. Patient would benefit from treatment to relieve oral pain and care for lesions, MD and RN advised. ? if patient has medication related issue or infection causing pain/lesions. RN advised DENTAL LABORATORY SUPERVISOR is administrative personal assistant on Thursday if another attempt at Clinical Swallow needed. MD/RN advised of recommendations. Frequency/Duration: Date Range for Service Req: Timeline to reassess: Information Specialist Clinican/Clinical Fellow: No Supervisory Statement: I have reviewed and agree with the student/clinical fellow's documentation: N/A Speech Language Pathologist: Olga Geiger M.A., CCC-DENTAL LABORATORY SUPERVISOR
[2024-01-02] MEDS: Fluconazole in NaCl,Iso-Osm 200 MG/100 ML PIGGYBACK 100 MG IV (12:47)
[2024-01-02] MEDS: Mag&Al/Sim/Diphenhyd/Lidocaine 10 ML ORAL.SUSP PO ×4 (12:47→23:54)
[2024-01-02] MEDS: cefEPime HCl/D5W 2 GM/50 ML PIGGYBACK IV (12:47)
[2024-01-02] MEDS: ACYCLOVIR SODIUM IV ×2 (12:55→23:57)
[2024-01-02] MEDS: DEXTROSE 5% IV ×2 (12:55→23:57)
[2024-01-02] MEDS: Haloperidol Lactate 5 MG/ML VIAL 2 MG IM (13:21)
[2024-01-02] MEDS: diazePAM 10 MG/2 ML CARTRIDGE 2.5 MG IM (14:11)
[2024-01-02] MEDS: PHENobarbitaL sodium 130 MG/ML VIAL IM (17:01)
--- NOTE | 2024-01-02 23:54 | W.MHC.ACPN ---
Documented by User: JEN Khan 01/03/24 05:30 Advanced Care Planning Note Advanced Care Planning Note Time spent (in minutes): 45 Narrative: The patient has been receiving ongoin administration of Dilaudid due to reported pain out of proportion of her abdomen as well as body aches in the setting of her metastatic breast cancer. My concern has been expressed to nursing personnel as well as Dr Herrera and the nursing hematology supervisor about the fact that using repeated doses of Dilaudid causes the patient to be completely obtunded, unresponsive and having some labored breathing effort which even though she is in the ICU and she can be monitored and the fact that she is DNR DNI, does not mean that the ongoing administration of this medication can not cause respiratory depression leading to worsening issues such as respiratory arrest and . The patient has a tendency to react very agitated, yelling, screaming and shouting for help when the medication wears off. I approached the patient luis connors kindly asked her to please avoid yelling explained to her that there is other patients in the unit and kindly asking her to use the call vasquez, she apologized and simply asked me to treat her pain. This was done in the presence of her nurse. I also explained to the patient that I can treat her pain but there is a fine line between taking care for pain and over-sedation which can leads to respiratory distress which in turn can cause her to . The patient seemed to understand and insisted that I would simply treat her pain and when I asked her to answer back about what could happen if she received too much pain medication she reported I can , but I am dying any ways . I know I am dying call my and let him know . I called the patient's and explained the situation to him including the fact that the patient has been having these issues for several days and even during the day, unfortunately the got very upset because he claimed that this was the 1st time he was hearing about thiss and that none of the nurses during the day or whenever he has called at nighttime have told him this was happening. He also stated that he talked to Dr. Herrera and that even him did not tell him this things were happening. He got progressively more upset and started yelling and shouting at me over the phone, in my attempt to deescalate the situation, I asked him to avoid yelling at me as I am not disrespecting him in anyway; but he continued to do so. I also asked him to allow me to explain the fact that I was not here during the day, so I dont know why this communication was not passed onto him as I was not here and that often times we (APPs and at night) do not call the family members unless a critical situation happens or there is a decompensation on the patient's clinical course. He then asked to talk to his as initially planned and also asked if it would be possible to talk to Dr Herrera. I got the nursing hematology supervisor involved to help mediate in this situation. I adjusted the patient's pain medications for moderate and severe pain to the following regimen, Dilaudid 0.25 mg IV q.2 hours p.r.n. other pain and Dilaudid 0.5 mg IV Q 3 hours p.r.n. severe pain. It is worth noting that the patient does not have the ability to swallow pills as she failed a speech therapy swallow evaluation and in addition she has mouth ulcers which limits our ability to give her extended release oral opioids. Once again I believe that the patient's long-term goals should be further addressed in a multidisciplinary meeting which may involve the family. As for now the patient remains DNR, DNI, eventually the patient will need better pain control which will be hard to do without compromising her respiratory capacity. I have requested a sitter at bedside to try to ease the patient's anxiety as well. Dr. Herrera was contacted and informed about the above situation and was asked to give the patient's a call back as requested. I was informed by the nursing hematology supervisor that the patient's has requested that I do not interact with Ms. Hale; I will respect that and simply reframe to continue to take care of her to the best of my abilities without interacting with her, nut not abandoning her care as per my obligation of duties. 1209 am 01/03/2024 at this point the nurse informs me that the patient called the nurse in the room and told her that she simply wants to , I am dying, I want to ; the patient stateed that she is in a tremendous amount of pain despite of the recent medication administered. Based on my prior encounter, I do not believe the patient is delirious, I do believe that she has full capacity of making decisions, we will continue to treat her pain and address further issues as above indicated and with Dr. Herrera being closely informed. Pt may benefit from a ACCOUNTS PAYABLE CLERK pump The critical care time spent with this patient, family, nurses, nursing hematology supervisor developing a plan, discussing with family members and documentation 45 minutes. Problems Discussed (1) Adult failure to thrive: (2) Acute renal failure: (3) Acute hypokalemia: (4) Hypocalcemia: (5) Metabolic acidosis: (6) Breast cancer metastasized to bone: (7) Pneumothorax, right: Documented by User: Robe Herrera MD 01/03/24 11:21 Advanced Care Planning Note Advanced Care Planning Note Narrative: The patient has been receiving ongoin administration of Dilaudid due to reported pain out of proportion of her abdomen as well as body aches in the setting of her metastatic breast cancer. My concern has been expressed to nursing personnel as well as Dr Herrera and the nursing hematology supervisor about the fact that using repeated doses of Dilaudid causes the patient to be completely obtunded, unresponsive and having some labored breathing effort which even though she is in the ICU and she can be monitored and the fact that she is DNR DNI, does not mean that the ongoing administration of this medication can not cause respiratory depression leading to worsening issues such as respiratory arrest and . The patient has a tendency to react very agitated, yelling, screaming and shouting for help when the medication wears off. I approached the patient luis connors kindly asked her to please avoid yelling explained to her that there is other patients in the unit and kindly asking her to use the call vasquez, she apologized and simply asked me to treat her pain. This was done in the presence of her nurse. I also explained to the patient that I can treat her pain but there is a fine line between taking care for pain and over-sedation which can leads to respiratory distress which in turn can cause her to . The patient seemed to understand and insisted that I would simply treat her pain and when I asked her to answer back about what could happen if she received too much pain medication she reported I can , but I am dying any ways . I know I am dying call my and let him know . I called the patient's and explained the situation to him including the fact that the patient has been having these issues for several days and even during the day. He got progressively more upset and started yelling and shouting at me over the phone, in my attempt to deescalate the situation, I asked him to avoid yelling at me as I am not disrespecting him in anyway; but he continued to do so. I also asked him to allow me to explain the fact that I was not here during the day, so I dont know why this communication was not passed onto him as I was not here and that often times we (APPs and at night) do not call the family members unless a critical situation happens or there is a decompensation on the patient's clinical course. He then asked to talk to his as initially planned and also asked if it would be possible to talk to Dr Herrera. I got the nursing hematology supervisor involved to help mediate in this situation. I adjusted the patient's pain medications for moderate and severe pain to the following regimen, Dilaudid 0.25 mg IV q.2 hours p.r.n. other pain and Dilaudid 0.5 mg IV Q 3 hours p.r.n. severe pain. It is worth noting that the patient does not have the ability to swallow pills as she failed a speech therapy swallow evaluation and in addition she has mouth ulcers which limits our ability to give her extended release oral opioids. Once again I believe that the patient's long-term goals should be further addressed in a multidisciplinary meeting which may involve the family. As for now the patient remains DNR, DNI, eventually the patient will need better pain control which will be hard to do without compromising her respiratory capacity. I have requested a sitter at bedside to try to ease the patient's anxiety as well. Dr. Herrera was contacted and informed about the above situation and was asked to give the patient's a call back as requested. I was informed by the nursing hematology supervisor that the patient's has requested that I do not interact with Ms. Hale; I will respect that and simply reframe to continue to take care of her to the best of my abilities without interacting with her, nut not abandoning her care as per my obligation of duties. 1209 am 01/03/2024 at this point the nurse informs me that the patient called the nurse in the room and told her that she simply wants to , I am dying, I want to ; the patient stateed that she is in a tremendous amount of pain despite of the recent medication administered. Based on my prior encounter, I do not believe the patient is delirious, I do believe that she has full capacity of making decisions, we will continue to treat her pain and address further issues as above indicated and with Dr. Herrera being closely informed. Pt may benefit from a ACCOUNTS PAYABLE CLERK pump The critical care time spent with this patient, family, nurses, nursing hematology supervisor developing a plan, discussing with family members and documentation 45 minutes. Problems Discussed (1) Adult failure to thrive: (2) Acute renal failure: (3) Acute hypokalemia: (4) Hypocalcemia: (5) Metabolic acidosis: (6) Breast cancer metastasized to bone: (7) Pneumothorax, right:
[2024-01-03] VITALS (31 sets, daily range): BP systolic 109–137; BP diastolic 67–104; PULSE 104–138; RESP 12–30; TEMP 36–36.6; O2SAT 90–95; BMI 31.7
[2024-01-03] MEDS: HYDROmorphone HCl 0.5 MG/0.5 ML SYRINGE IVPUSH ×7 (00:17→21:27)
[2024-01-03] MEDS: HYDROmorphone HCl 0.5 MG/0.5 ML SYRINGE 0.25 MG IVPUSH ×2 (01:47→03:56)
[2024-01-03] MEDS: ondansetron HCL 4 MG/2 ML VIAL IVPUSH (03:05)
[2024-01-03] MEDS: Dextrose 5 % 1,000 ML 50 ML IVCONT (03:43)
[2024-01-03 04:33] LABS: VBG Base Excess 12.4 mmol/L; VBG HCO3 35 mmol/L (22-26); VBG pCO2 38 mmHg; VBG pH 7.57 (7.32-7.43); VBG pO2 46 mmHg
[2024-01-03 04:34] LABS: Venous Blood Gas Refer to POC result
[2024-01-03 04:54] LABS: Basophils Percent Auto 0.6 % (0-2); Hematocrit 23.8 % (37.0-47.0); Hemoglobin 7.9 g/dl (12.0-16.0); Imm Gran Abs Auto 0.01 X10*3/uL (0.00-0.03); Imm Gran Pct Auto 0.6 % (0.0-0.4); Lymphocytes Absolute Auto 0.6 X10*3/uL (1.2-4.9); MANUAL DIFF FLAG SCAN; Mean Corpuscular HGB Conc 33.2 g/dl (31.0-35.0); Mean Corpuscular Hemoglobin 29.8 pg (27.0-33.0); Mean Corpuscular Volume 89.8 fL (80.0-98.0); Mean Platelet Volume 11.3 fL (9.4-12.3); Monocytes Absolute Auto 0.1 X10*3/uL (0.1-1.2); Monocytes Percent Auto 3.2 % (2-11); Neutrophils Absolute Auto 0.9 x10*3/uL (2.0-8.3); Neutrophils Percent Auto 56.6 % (45-73); Red Blood Count 2.65 X10*6/uL (4.20-5.50); Red Cell Distribution Width 15.1 % (11.0-16.0); SCAN SMEAR FLAG 1; White Blood Count 1.5 X10*3/uL (4.8-10.8)
[2024-01-03 04:55] LABS: Platelet Count 41 X10*3/uL (160-400)
[2024-01-03 05:12] LABS: Alanine Aminotransferase 382 U/L (0-31); Alkaline Phosphatase 38 U/L (39-117); Anion Gap 23 (12-20); Aspartate Amino Transferase 467 U/L (5-31); Bilirubin Total 0.8 mg/dL (0.0-1.0); Blood Urea Nitrogen 39 mg/dL (9-16); Calcium 7.4 mg/dL (8.4-10.2); Carbon Dioxide 27 mmol/L (22-29); Chloride 104 mmol/L (96-108); Creatinine Clr Calc Pharmacy 31.6; Estimated Glomerular Filt Rate 29; Glucose Random 141 mg/dL (60-115); Magnesium 2.1 mg/dL (1.6-2.6); Phosphorus 2.6 mg/dL (2.7-4.5); Potassium 3.7 mmol/L (3.3-5.1); Sodium 150 mmol/L (135-145); Total Protein 6.3 g/dL (6.5-8.0)
[2024-01-03 05:22] LABS: SLIDE REVIEW VERIFIED
--- NOTE | 2024-01-03 06:18 | PC.NURSE ---
2200 - Pt yelling for help, restless, anxious, and complaining of pain, HR 150s ST on tele, RR 30-40s. JEN Graham in room to speak with pt regarding pain management. PA explained to pt risk for respiratory depression with increasing frequency of prn dilaudid - pt stated I don't care, just give me the medication. Pt allowed PA to speak with over the phone regarding pts statement and need for better pain control. Prn dilaudid 0.25 mg IVP Q2 added for moderate pain - administered to pt for 6/10 abdominal pain. Pt stated to RN I don't want to . Reassurance provided. 1:1 sitter placed at bedside?to help ease pts anxiety.? Pt spoke with ?over the phone- stated to this RN and nursing concrete stone fabricating supervisor he was upset with call from PA and feels that he has not been informed on pts worsening pain/anxiety -? states that during prior conversations with providers/nurses there was no mention of pain control/anxiety. Nursing concrete stone fabricating supervisor aware of situation. Conference call initiated?between pts and Dr Herrera per pts request.? 0020- Pt yelling out Let me , I want to be put to sleep stating she is in now in 10 abdominal pain- pt medicated with prn dilaudid 0.5 mg IVP with good effect.? Pt medicated throughout shift with prn pain medications - alternating between moderate/severe dosages. Pt able to sleep intermittently, still waking frequently to request pain medication. Sitter at bedside providing emotional support. Will pass on to oncoming RN the need for multidisiplinary?conversation regarding goals of care.?
[2024-01-03] MEDS: Albuterol/Iprat 2.5/0.5MG 3 ML AMPUL.NEB INHALE ×2 (07:19→19:57)
[2024-01-03] MEDS: 0.9 % Sodium Chloride Flush 3 ML SYRINGE IVFLUSH ×4 (09:04→21:28)
[2024-01-03] MEDS: Mag&Al/Sim/Diphenhyd/Lidocaine 10 ML ORAL.SUSP PO ×3 (09:25→16:05)
[2024-01-03] MEDS: Heparin Sodium,Porcine 5,000 UNIT/ML VIAL 5000 UNIT SUBCUT ×2 (09:25→21:27)
--- NOTE | 2024-01-03 09:31 | PC.NURSE ---
Addendum entered by Mey Yeager RN 01/03/24 17:44: 10:15 FORESTRY ENGINEER Dilaudid gtt ordered for patient. MD notified that pt has had decreased requirements for dilaudid prn. Family member Delmar and had discussion. Per family for now will monitor pt pain and use prn medications as needed, hold on starting FORESTRY ENGINEER pump for pt unless pain levels indicate a need. prn dilaudid 0.5mg IVP used three times this shift for pain management. 17:30 Chest tube site dressing changed again for sauration with serous fluid. Xeroform, gauze and tegaderm dsg applied with large tape over site. 17:45 Pt transferred from ICU 254 to [facility]. RN to RN report given. Addendum entered by Mey Yeager RN 01/03/24 12:41: 11:15 Right apical chest tube removed by MD at bedside. Occlusive sterile dsg applied. Site had a moderate amount of serous drainage. New occlusive dsg applied by RN. Pt VSS, HFNC 50L 55% SaO2 92%. Addendum entered by Mey Yeager RN 01/03/24 11:24: D5W @ 50 ml/hr resumed per . MD assessed lung sounds at bedside with pt turned to side. Original Note: Per MD, IVF D5W @50ml/hr paused. This RN reported course crackles to lung ribeiro. See Shift Assessment.
[2024-01-03] MEDS: cefEPime HCl/D5W 2 GM/50 ML PIGGYBACK IV (10:34)
[2024-01-03] MEDS: levalbuterol HCL 1.25 MG/3 ML VIAL.NEB INHALE ×2 (11:11→15:28)
--- NOTE | 2024-01-03 11:22 | P.PNCC_ITS ---
Subjective Subjective Date of Service: 01/03/24 Critical Care Time (minutes): 35 Comment: Mental status slightly better today Continues to be on high-flow oxygen but breathing better Creatinine stable 7, sodium up to 150 currently on D5 at 50 cc/hour Physical Exam 2 Vital Signs: Vital Signs: Last Vital Signs Temp 97.8 F 01/03/24 08:00 Pulse 111 H 01/03/24 11:12 Resp 25 H 01/03/24 11:12 BP 124/81 01/03/24 11:00 Pulse Ox 91 L 01/03/24 11:00 O2 Del Method High Flow Nasal C annula 01/03/24 11:00 O2 Flow Rate 55 01/03/24 11:00 FiO2 55 01/03/24 11:00 BMI result Body Mass Index 31.7 General: ill appearing and tired appearing Nutritional Appearance: well nourished and overweight Eyes: appearance normal, both eyes and all related structures; Alignment and Position: alignment normal and position normal Neck: No lymphadenopathy, no thyromegaly Resp: bilateral air entry equal, bilateral significant rhonchi heard Cardio: Regular rate, regular rhythm; Heart sounds: S1 normal heart sound present and S2 normal heart sound present GI: soft, nontender, no guarding, no hepatosplenomegaly : bladder normal to inspection, bladder normal to palpation, no renal angle tenderness Skin: no rashes or lesions noted and elasticity normal Neuro: oriented to person, oriented to place, oriented to time and moves all extremities Objective Data Labs 01/03/24 04:42 01/03/24 04:42 Labs: Laboratory Results - last 24 hr 01/03/24 01/03/24 04:21 04:42 WBC 1.5 L RBC 2.65 L Hgb 7.9 L Hct 23.8 L MCV 89.8 MCH 29.8 MCHC 33.2 RDW 15.1 Plt Count 41 L MPV 11.3 Immature Gran % (Auto) 0.6 H Neut % (Auto) 56.6 Lymph % (Auto) 39.0 [place] % (Auto) 3.2 Eos % (Auto) 0.0 Baso % (Auto) 0.6 Lymph # (Auto) 0.6 L [place] # (Auto) 0.1 Eos # (Auto) 0.0 Baso # (Auto) 0.0 Abs Immat Gran (auto) 0.01 Absolute Neuts (auto) 0.9 L Absolute Nucleated RBC 0.000 Nucleated RBC % (auto) 0.0 Smear Tech's Comments VERIFIED VBG pH 7.57 H VBG pCO2 38 VBG pO2 46 VBG HCO3 35 H VBG O2 Saturation 78.0 VBG Base Excess 12.4 Sodium 150 H Potassium 3.7 Chloride 104 Carbon Dioxide 27 Anion Gap 23 H BUN 39 H Creatinine 1.77 H Estim Creat Clear Calc 31.6 Estimated GFR 29 Random Glucose 141 H Calcium 7.4 L D Phosphorus 2.6 L Magnesium 2.1 Total Bilirubin 0.8 AST 467 H ALT 382 H Alkaline Phosphatase 38 L Total Protein 6.3 L Albumin 4.0 Microbiology Microbiology Results: Microbiology 12/31/23 14:30 Blood - Venous Blood Culture - Preliminary No growth after 48 hours. 12/31/23 14:36 Blood - Venous Blood Culture - Preliminary No growth after 48 hours. 12/29/23 13:10 Blood - Venous Blood Culture - Final Escherichia coli 12/29/23 12:34 Blood - Venous Blood Culture - Preliminary No growth after 48 hours. 12/29/23 18:29 Urine clean catch - Clean Catch Midstream Urine Culture - Final No growth. Progress Note: A&P Assessment and plan (1) Acute renal failure: Status: Acute (2) Acute hypokalemia: Status: Acute (3) Hypocalcemia: Status: Acute (4) Breast cancer metastasized to bone: Status: Acute (5) Pneumothorax, right: Status: Acute (6) Adult failure to thrive: Status: Acute Plan Acute kidney injury: Severe metabolic acidosis: Patient has acute kidney injury secondary to nausea vomiting and diarrhea possibly secondary to chemotherapy Renal function improving with fluid replacement; creatinine stable between 1.5- 1.7 Still continues to be slightly volume currently on D5 water 50 cc/hour Hypernatremia: Secondary to volume depletion and continuous LR D5 water decreased to 50 cc/hour given bilateral wheeze and some crackles Acute respiratory failure: Secondary to severe metabolic acidosis leading to hyper ventilation, which is improved after correcting the acidosis Status post chest tube placement for large right-sided hydropneumothorax, chest tube removed today as overnight it drained only 75 cc We will repeat a chest x-ray Breast cancer with metastasis: His PET scans in November showed hydronephrosis with multiple peritoneal metastasis and some ascites. He has been started on new oral chemotherapy and the CT scan from yesterday showed normal kidneys with no hydronephrosis and no ascites was seen. Explained the family that based on the CT images there has been some improvement in the metastatic symptoms in the abdomen, would continue the chemotherapy with a adjunct support for GI symptoms once the renal function improves and her mental status is better Hypocalcemia: Improving with correction of magnesium, to 7.4 today. Transaminitis: Bump in LFT from normal to 400s and 300s today Possibly due to congestion, we will give Lasix 40 mg twice today Infectious disease: Neutropenia: Patient's neutrophil count is She has severe mucositis in the oral mucosa, given her diarrhea she might possibly have gut mucositis too continue magic mouthwash, antibiotics titrated to cefepime, fluconazole and acyclovir to cover fungal and herpes given her neutropenia. Prophylaxis: Heparin, pantoprazole Code status: DNI DNR Quality Stroke Does the patient have a stroke diagnosis?: No VTE Prior VTE?: No VTE Risk Level:: Medical - moderate - high VTE Device Contraindication: Treatment Not Indicated VTE Drug Contraindication: N/A - Med Ordered
[2024-01-03] MEDS: Fluconazole in NaCl,Iso-Osm 200 MG/100 ML PIGGYBACK 100 MG IV (12:01)
[2024-01-03] MEDS: ACYCLOVIR SODIUM IV (13:44)
[2024-01-03] MEDS: DEXTROSE 5% IV (13:44)
--- NOTE | 2024-01-03 14:06 | PM.EVENT ---
Event Note Date of Service: 01/03/24 Event Note: Patient seen/examined. Chart reviewed and discussed with ICU provider. 63-year-old woman diagnosed with metastatic breast cancer in October 2023. She was started on letrozole in October and abemaciclib 200 mg PO BID on 12/09/2023. She was also started on denosumab for bone metastases. She presented to the hospital on 12/28 with nausea and vomiting and was found to have DANIELA with a creatinine of 12, hypokalemia, and a large right-sided Hydropneumothorax. On 12/29, she developed hypotension and acute respiratory distress and was transferred to the ICU for further management of the following. Acute Kidney Injury (DANIELA): Likely secondary to nausea, vomiting, and diarrhea from chemotherapy. Renal function improving with fluids, creatinine now ?1.7 down from 12 on admission. Severe Metabolic Acidosis: Resolved with IVF and bicab, Hypernatremia: due to free water deficit and volume depletion and LR,. Continue D5W to 50 and closely monitor. Get Nephrology involve Acute Respiratory Failure: Secondary to metabolic acidosis and Large Right sided right hydropneumothorax that required a chest tube which is now removed. Chest X-ray pending. Patient remains hypoxix and still on Highflow, wean O2 as tolerated. Breast Cancer with Metastasis: November PET showed hydronephrosis, peritoneal metastases, and ascites. Recent CT showed improvement with no hydronephrosis or ascites. Oncology to decide on furrther management Hypocalcemia: Improved with magnesium correction (current Ca 7.4). Transaminitis: Elevated LFTs (400s/300s) likely due to passive liver congestion; Lasix 40 mg BID planned. Neutropenia and Mucositis: Neutrophils ~900, with severe oral and probable gut mucositis. Continuing antibiotics (cefepime), antifungals (fluconazole), antivirals (acyclovir), and supportive care (magic mouthwash). Prophylaxis: Heparin, pantoprazole. Code Status: DNI/DNR. Time Spent With Patient Time: Total time managing care of this patient today ____ minutes.
[2024-01-03] MEDS: Furosemide 40 MG/4 ML VIAL IVPUSH ×2 (14:24→18:00)
[2024-01-04] VITALS (15 sets, daily range): BP systolic 109–127; BP diastolic 70–90; PULSE 102–116; RESP 17–32; TEMP 36.2–37.3; O2SAT 92–96
[2024-01-04] MEDS: DEXTROSE 5% IV ×2 (00:32→16:14)
[2024-01-04] MEDS: ACYCLOVIR SODIUM IV ×2 (00:32→16:14)
[2024-01-04] MEDS: Dextrose 5 % 1,000 ML 50 ML IVCONT ×2 (00:34→21:01)
[2024-01-04] MEDS: Mag&Al/Sim/Diphenhyd/Lidocaine 10 ML ORAL.SUSP PO ×6 (02:05→23:33)
[2024-01-04] MEDS: HYDROmorphone HCl 0.5 MG/0.5 ML SYRINGE IVPUSH ×3 (04:29→23:33)
[2024-01-04 05:20] LABS: VBG Base Excess 13.2 mmol/L; VBG HCO3 35 mmol/L (22-26); VBG pCO2 34 mmHg; VBG pH 7.61 (7.32-7.43); VBG pO2 53 mmHg
[2024-01-04 05:24] LABS: Venous Blood Gas Refer to POC result
[2024-01-04 05:39] LABS: Hematocrit 24.3 % (37.0-47.0); Hemoglobin 7.9 g/dl (12.0-16.0); Mean Corpuscular HGB Conc 32.5 g/dl (31.0-35.0); Mean Corpuscular Hemoglobin 29.4 pg (27.0-33.0); Mean Corpuscular Volume 90.3 fL (80.0-98.0); Mean Platelet Volume 11.8 fL (9.4-12.3); NRBC Pct Auto 1.2 /100WBC (0.0-0.2); Red Blood Count 2.69 X10*6/uL (4.20-5.50); Red Cell Distribution Width 14.8 % (11.0-16.0); WBC ABN SCTR FOR CBC 1
[2024-01-04 05:40] LABS: Platelet Count 34 X10*3/uL (160-400); White Blood Count 1.6 X10*3/uL (4.8-10.8)
--- NOTE | 2024-01-04 05:51 | HO.PM.IMPN ---
Subjective Subjective Date of Service: 01/04/24 Interval History: f/u post icu care for severe daniela, severe metabolic acidosis, acute hypoxic resp d/t hydropneumothorax. Now with hypernatremia and on highflow Physical Exam Vital Signs: Vital Signs: Last Vital Signs Temp 97.2 F 01/04/24 04:00 Pulse 116 H 01/04/24 04:00 Resp 20 01/04/24 04:00 BP 127/88 01/04/24 04:00 Pulse Ox 93 01/04/24 04:00 O2 Del Method High Flow Nasal C annula 01/04/24 04:00 O2 Flow Rate 50 01/04/24 00:00 FiO2 50 01/04/24 00:00 BMI result Body Mass Index 31.7 Const: Other: General: AO X 3, no acute distress Resp: CTA bilateral CVS: S1,S2,RRR GI: +BS, NT, no distention Skin: No rash Neuro: motor grossly intact Psych: appropriate affect Objective Data Active Medications Acetaminophen (Acetaminophen 325 Mg Tablet) 650 mg PO Q6H PRN PRN Reason: Pain, Mild (Pain Scale 1-3), fever or headache Albuterol/Ipratropium (Albuterol/Iprat 2.5/0.5mg 3 Ml Ampul.Neb) 3 ml INHALE RQ4H WHILE AWAKE [facility] Last Admin: 01/03/24 19:57 Dose: 3 ml Documented By: PEGGY Calcium Carbonate (Calcium Carbonate 750 Mg Tab.Chew) 750 mg PO Q4H PRN PRN Reason: Heartburn Dicyclomine HCl (Dicyclomine Hcl 10 Mg Capsule) 10 mg PO TIDAC PRN PRN Reason: Pain, Severe (Pain Scale 7-10) Furosemide (Furosemide 40 Mg/4 Ml Vial) 40 mg IVPUSH BID@0900,1800 [facility]; Protocol Last Admin: 01/03/24 18:00 Dose: 40 mg Documented By: JORGE Heparin Sodium (Porcine) (Heparin Sodium,Porcine 5,000 Unit/Ml Vial) 5,000 unit SUBCUT Q12H [facility] Last Admin: 01/03/24 21:27 Dose: 5,000 unit Documented By: SALMOD Hydromorphone HCl (Hydromorphone Hcl 0.5 Mg/0.5 Ml Syringe) 0.25 mg IVPUSH Q2H PRN; Protocol PRN Reason: Pain, Moderate(Pain Scale 4-6) Last Admin: 01/03/24 03:56 Dose: 0.25 mg Documented By: CECELIA Hydromorphone HCl (Hydromorphone Hcl 0.5 Mg/0.5 Ml Syringe) 0.5 mg IVPUSH Q3H PRN; Protocol PRN Reason: Pain, Severe (Pain Scale 7-10) Last Admin: 01/04/24 04:29 Dose: 0.5 mg Documented By: MEGAN Dextrose (D5w) 1,000 mls @ 50 mls/hr IVCONT .Q20H [facility] Last Admin: 01/04/24 00:34 Dose: 50 mls/hr Documented By: MEGAN Cefepime HCl (Maxipime) 2 gm in 50 mls @ 100 mls/hr IV Q24H [facility] Last Infusion: 01/03/24 11:24 Dose: Infused Documented By: CARMELA Fluconazole (Diflucan) 200 mg in 100 mls @ 100 mls/hr IV Q24H [facility] Last Infusion: 01/03/24 13:03 Dose: Infused Documented By: CARMELA Acyclovir Sodium 400 mg/ (Dextrose) 108 mls @ 110 mls/hr IV Q12H [facility] Last Infusion: 01/04/24 01:40 Dose: Infused Documented By: MEGAN Hydromorphone HCl (Dilaudid) 10 mg in 50 mls @ 0 mls/hr IV .Q0M [facility]; Protocol Lactated Ringer's (Lr) 1,000 mls @ 50 mls/hr IVCONT .Q20H [facility] Last Admin: 01/03/24 15:57 Dose: Not Given Documented By: CARMELA Non-Admin Reason: Physician Held Med Fentanyl (Sublimaze/Ns) 1,000 mcg in 100 mls @ 0 mls/hr IVCONT .Q0M [facility]; Protocol Levalbuterol HCl (Levalbuterol Hcl 1.25 Mg/3 Ml Vial.Neb) 2.5 mg INHALE Q4H PRN PRN Reason: shortness of breath Lidocaine/Diphenhydr/Alum/Mg/Simeth (Mag&Al/Sim/Diphenhyd/Lidocaine 10 Ml Oral.Susp) 10 ml PO Q4H [facility]; Protocol Last Admin: 01/04/24 02:05 Dose: 10 ml Documented By: MEGAN Magnesium Hydroxide (Milk Of Magnesia 30 Ml Oral.Susp) 30 ml PO DAILY PRN PRN Reason: Constipation Naloxone HCl (Naloxone Hcl 0.4 Mg/Ml Vial) 0.2 mg IVPUSH Q2M PRN PRN Reason: Excessive sedation or RR < 8 Olanzapine (Olanzapine 10 Mg Vial) 10 mg IM DAILY PRN PRN Reason: agitation Last Admin: 01/01/24 19:39 Dose: 10 mg Documented By: CECELIA Sodium Chloride (0.9 % Sodium Chloride Flush 3 Ml Syringe) 3 ml IVFLUSH QSHIFT [facility] Last Admin: 01/03/24 21:28 Dose: 3 ml Documented By: MEGAN Labs 01/04/24 05:11 01/04/24 05:11 Labs: Laboratory Results - last 24 hr 01/04/24 01/04/24 05:10 05:11 MCV 90.3 MCH 29.4 MCHC 32.5 RDW 14.8 Plt Count 34 L MPV 11.8 Immature Gran % (Auto) Cancelled Neut % (Auto) Cancelled Lymph % (Auto) Cancelled [place] % (Auto) Cancelled Eos % (Auto) Cancelled Baso % (Auto) Cancelled Lymph # (Auto) Cancelled [place] # (Auto) Cancelled Eos # (Auto) Cancelled Baso # (Auto) Cancelled Abs Immat Gran (auto) Cancelled Absolute Neuts (auto) Cancelled Absolute Nucleated RBC 0.020 H Nucleated RBC % (auto) 1.2 H VBG pH 7.61 H* VBG pCO2 34 VBG pO2 53 VBG HCO3 35 H VBG O2 Saturation 88.0 VBG Base Excess 13.2 Microbiology Microbiology Results: Microbiology 12/29/23 12:34 Blood Culture - Final Blood - Venous No growth after 5 days. Assessment and Plan (1) Acute renal failure: Status: Acute (2) Hypocalcemia: Status: Acute (3) Metabolic acidosis: Status: Acute (4) Breast cancer metastasized to bone: Status: Acute Plan 63-year-old woman diagnosed with metastatic breast cancer in October 2023. She was started on letrozole in October and abemaciclib 200 mg PO BID on 12/09/2023. She was also started on denosumab for bone metastases. She presented to the hospital on 12/28 with nausea and vomiting and was found to have DANIELA with a creatinine of 12, hypokalemia, and a large right-sided Hydropneumothorax. On 12/29, she developed hypotension and acute respiratory distress and was transferred to the ICU for further management of the following. Acute Kidney Injury (DANIELA): Likely secondary to nausea, vomiting, and diarrhea from chemotherapy. Renal function improving with fluids, creatinine now ?1.7 down from 12 on admission. Severe Metabolic Acidosis: Resolved with IVF and bicab, Hypernatremia: due to free water deficit and volume depletion and LR,. Continue D5W to 50 and closely monitor and monitor sodium, down to 147 Acute Respiratory Failure: Secondary to metabolic acidosis and Large Right sided right hydropneumothorax that required a chest tube which is now removed. Chest X-ray pending. Patient remains hypoxix and still on Highflow, wean O2 as tolerated. Breast Cancer with Metastasis: November PET showed hydronephrosis, peritoneal metastases, and ascites. Recent CT showed improvement with no hydronephrosis or ascites. Oncology to decide on furrther management Hypocalcemia: Improved with magnesium correction (current Ca 7.4). Pancytopenia--d/t cancer, monitor, discuss parameters for transfusion with Hematology, check ANC Transaminitis: Elevated LFTs (400s/300s) likely due to passive liver congestion; Lasix 40 mg BID planned. Neutropenia and Mucositis: Neutrophils ~900, with severe oral and probable gut mucositis. Continuing antibiotics (cefepime), antifungals (fluconazole), antivirals (acyclovir), and supportive care (magic mouthwash). Prophylaxis: Heparin, pantoprazole. Code Status: DNI/DNR. Quality Stroke Does the patient have a stroke diagnosis?: No VTE Prior VTE?: No VTE Risk Level:: Medical - moderate - high VTE Device Contraindication: Treatment Not Indicated VTE Drug Contraindication: N/A - Med Ordered
[2024-01-04 05:58] LABS: Alanine Aminotransferase 433 U/L (0-31); Albumin Level 3.7 g/dL (3.5-5.0); Alkaline Phosphatase 46 U/L (39-117); Anion Gap 21 (12-20); Aspartate Amino Transferase 385 U/L (5-31); Bilirubin Total 0.9 mg/dL (0.0-1.0); Blood Urea Nitrogen 48 mg/dL (9-16); Carbon Dioxide 29 mmol/L (22-29); Chloride 100 mmol/L (96-108); Creatinine Clr Calc Pharmacy 30.9; Estimated Glomerular Filt Rate 28; Glucose Random 162 mg/dL (60-115); Phosphorus 1.7 mg/dL (2.7-4.5); Potassium 3.2 mmol/L (3.3-5.1); Sodium 147 mmol/L (135-145); Total Protein 6.1 g/dL (6.5-8.0)
[2024-01-04 06:00] LABS: Band Neutrophils Percent 6 % (3-5); Eosinophils Percent Manual 1 % (0-4); Lymphocytes Absolute Manual 0.6 X10*3/uL (1.2-4.9); Lymphocytes Percent Manual 36 % (20-40); Monocytes Percent Manual 2 % (2-11); Neutrophils Percent Manual 55 % (45-73); Nucleated Red Blood Cells 2 /100WBC (0-0)
[2024-01-04 06:02] LABS: Dohle Bodies PRESENT; Hypochromasia 1+ (5-14) /OIF; Platelet Estimate DECREASED (NORMAL); Platelet Morphology Comment NORMAL; RBC Morphology NOTED; Target Cells 1+ (5-14) /OIF; Toxic Granulation PRESENT
[2024-01-04] MEDS: Albuterol/Iprat 2.5/0.5MG 3 ML AMPUL.NEB INHALE ×4 (07:31→20:38)
--- NOTE | 2024-01-04 07:41 | PC.NURSE ---
Patient Ax4, on high flow O2, some restlessness throughout the night, c/o abdominal pain, medicated per MAR, No acute changes in clinical status on this shift.
--- NOTE | 2024-01-04 08:35 | PM.PNNEP ---
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 Presented 12/28 with shortness of breath, failure to thrive poor PO intake. ICU care for severe DANIELA and metabolic acidosis, acute hypoxic resp failure d/t hydropneumothorax. creatinine on 12/16 was 1.71 labs on 12/28: Na 133, K 2.4, CO2 13, AG 29, BUN 155, creatinine 11.65 creatinine trending down, 01/03 creatinine 1.83 hyernatremia, sodium level 147 01/03 (01/02 150), potassium 3.1 01/03 currently has LR at 50mL/hr and D5W at 50mL/hr, also on furosemide 40mg IVP PO BID CT abdomen/pelvis 12/28 kidneys/ureters unremarkable without hydronephrosis, hydroureter, calculi. Pt on HFNC today states her breathing is comfortable states she has to have a BM frequently which is frustrating denies chest pain, states ongoing mild abdominal pain in lower abdomen denies pain or difficulty emptying her bladder, denies blood in urine denies other concerns/new symptoms at this time Physical Exam Vital Signs: Vital Signs: Last Vital Signs Temp 98.6 F 01/04/24 07:02 Pulse 115 H 01/04/24 07:32 Resp 19 01/04/24 07:32 BP 109/70 01/04/24 09:17 Pulse Ox 93 01/04/24 07:02 O2 Del Method High Flow Nasal C annula 01/04/24 07:02 O2 Flow Rate 50 01/04/24 07:02 FiO2 50 01/04/24 07:02 BMI result Body Mass Index 31.7 Const: General: no acute distress, alert and awake Resp: Effort & Inspection: normal respiratory effort and able to speak in complete sentences Auscultation: clear to auscultation bilaterally Cardio: Rate: regular rate Rhythm: regular rhythm Heart sounds: S1 normal heart sound present and S2 normal heart sound present GI: Palpation (GI): Soft to palpation and nontender : General: Yes no CVA tenderness Back/Spine/Pelvis: Back: no CVA tenderness Skin: Lesions: no lesions Rashes: no rashes Extrem: General: No edema Objective Data Labs 01/04/24 05:11 01/04/24 05:11 Labs: Laboratory Results - last 24 hr 01/04/24 01/04/24 05:10 05:11 WBC 1.6 L RBC 2.69 L Hgb 7.9 L Hct 24.3 L MCV 90.3 MCH 29.4 MCHC 32.5 RDW 14.8 Plt Count 34 L MPV 11.8 Immature Gran % (Auto) Cancelled Neut % (Auto) Cancelled Lymph % (Auto) Cancelled [place] % (Auto) Cancelled Eos % (Auto) Cancelled Baso % (Auto) Cancelled Lymph # (Auto) Cancelled [place] # (Auto) Cancelled Eos # (Auto) Cancelled Baso # (Auto) Cancelled Abs Immat Gran (auto) Cancelled Absolute Neuts (auto) Cancelled Absolute Nucleated RBC 0.020 H Nucleated RBC % (auto) 1.2 H Neutrophils % (Manual) 55 Band Neutrophils % 6 H Lymphocytes % (Manual) 36 Monocytes % (Manual) 2 Eosinophils % (Manual) 1 Abs Neuts (Manual) 1.0 L Lymphocytes # (Manual) 0.6 L Nucleated RBCs 2 H Toxic Granulation PRESENT Dohle Bodies PRESENT Platelet Estimate DECREASED Plt Morphology Comment NORMAL RBC Morphology NOTED Hypochromasia 1+ (5-14) Target Cells 1+ (5-14) Smear Path Review SEE NOTE VBG pH 7.61 H* VBG pCO2 34 VBG pO2 53 VBG HCO3 35 H VBG O2 Saturation 88.0 VBG Base Excess 13.2 Sodium 147 H Potassium 3.2 L Chloride 100 Carbon Dioxide 29 Anion Gap 21 H BUN 48 H Creatinine 1.83 H Estim Creat Clear Calc 30.9 Estimated GFR 28 Random Glucose 162 H Calcium 7.0 L Phosphorus 1.7 L Magnesium 2.0 Total Bilirubin 0.9 AST 385 H ALT 433 H Alkaline Phosphatase 46 Total Protein 6.1 L Albumin 3.7 Microbiology Microbiology Results: Microbiology 12/29/23 12:34 Blood - Venous Blood Culture - Final No growth after 5 days. 12/31/23 14:30 Blood - Venous Blood Culture - Preliminary No growth after 48 hours. 12/31/23 14:36 Blood - Venous Blood Culture - Preliminary No growth after 48 hours. 12/29/23 13:10 Blood - Venous Blood Culture - Final Escherichia coli 12/29/23 18:29 Urine clean catch - Clean Catch Midstream Urine Culture - Final No growth. Procedures Date of Service Date of Service: 01/04/24 Assessment & Plan Assessment and plan (1) Acute renal failure: Status: Acute (2) Acute hypokalemia: Status: Acute (3) Metabolic acidosis: Status: Acute (4) Breast cancer metastasized to bone: Status: Acute Plan Acute renal failure most likely due to ATN from hypoperfusion (volume loss from severe diarrhea) Improved, may have some more gradual improvement over time from ATN though may be new baseline recommend stop D5W and LR drips and encourage increased PO free water intake recommend reduce lasix dose from 40mg IVP BID to 40mg IVP daily to help reduce free water clearance recommend close blood pressure and I&O monitoring recommend avoiding nephrotoxins will continue to follow Discussed with Dr Escoto Time Spent With Patient Time: Total time managing care of this patient today ____ minutes. Progress Note: Quality Stroke Does the patient have a stroke diagnosis?: No
[2024-01-04] MEDS: Potassium Phosphate/NS 15 MMOL/250 ML PLAST..BAG 62.5 MMOL IV (09:16)
[2024-01-04] MEDS: 0.9 % Sodium Chloride Flush 3 ML SYRINGE IVFLUSH ×3 (09:17→21:05)
[2024-01-04] MEDS: Furosemide 40 MG/4 ML VIAL IVPUSH (09:17)
[2024-01-04] MEDS: Heparin Sodium,Porcine 5,000 UNIT/ML VIAL 5000 UNIT SUBCUT ×2 (09:18→21:01)
--- NOTE | 2024-01-04 09:44 | MHC.SLORD ---
Speech Language Pathology Order Status: Pt seen this morning for bedside swallow evaluation. Pt sitting upright in bed, alert and oriented. Pt on highflow O2. Adequate voicing, tolerates water without overt s/s of aspiration. PO trials to be attempted when pt ready, currently she is experiencing moderate oral discomfort. RN present providing oral care.
--- NOTE | 2024-01-04 10:18 | MHC.CM.PN ---
Per ROUNDS discussion, Patient is not yet medically cleared for dc (recently came up from ICU); home is the goal and CM will continue to follow.
--- NOTE | 2024-01-04 10:42 | HO.WOUND ---
Wound Consult: Attempted Arrival to bedside direct care staff reported patient was just repositioned and did not tolerate well. Team will reach out to me at next reposition for coccyx assessment.
[2024-01-04] MEDS: cefEPime HCl/D5W 2 GM/50 ML PIGGYBACK IV (12:51)
[2024-01-04] MEDS: Fluconazole in NaCl,Iso-Osm 200 MG/100 ML PIGGYBACK 100 MG IV (12:53)
--- NOTE | 2024-01-04 13:43 | HO.WOUND ---
Wound Consult: Initial 63yr old?[place] [facility] [place] - See progress notes and H&P for detailed history.? Wound consult placed for buttock.? Patient agreeable to assessment and photo documentation.? Gluteal Fold Etiology: MASD with Intertrigo ??Present on Admission Wound Bed: red maroon nonblanchable tissue - Mirrored edges and base of fold has clean red moist wound bed Drainage / Odor: none noted Edges: ? mirrored Debbie wound: intact? No Induration, Fluctuance or Warmth noted Pain: denies Goals of Treatment: ? Barrier cream to gluteal area to protect from moisture and friction and allow for moist wound healing. Recommendations: 1. Turn and Reposition every 2 hours and as needed for patient comfort.? Use pillows or wedges to support off loading positions. 2. Off Load all bony prominences with use of pillows and heel boots if needed.? Apply Preventative foams where needed. ? 3. Monitor for incontinence and moisture control, use barrier creams when needed for prevention and treatment. 4. Provide adequate and supplemental nutrition.? 5. Continue low air loss mattress. 6. When applicable maintain blood glucose levels per Providers order. 7. Gluteal Fold - Off Load Pressure with Q2hr turns and repositions with pillows. Cleanse with ph balanced wipes or spray, pat dry. Apply barrier cream to gluteal fold area twice daily and PRN for episodes of incontinence. Re-consult wound care Nurse for wound deterioration or wound changes.
[2024-01-04] MEDS: HYDROmorphone HCl 0.5 MG/0.5 ML SYRINGE 0.25 MG IVPUSH (21:00)
[2024-01-05] VITALS (13 sets, daily range): BP systolic 111–118; BP diastolic 59–87; PULSE 84–110; RESP 18–26; TEMP 36.1–36.6; O2SAT 89–96; BMI 31.1
[2024-01-05] MEDS: ACYCLOVIR SODIUM IV ×2 (02:27→16:45)
[2024-01-05] MEDS: DEXTROSE 5% IV ×2 (02:27→16:45)
[2024-01-05] MEDS: Mag&Al/Sim/Diphenhyd/Lidocaine 10 ML ORAL.SUSP PO ×5 (04:01→20:41)
[2024-01-05] MEDS: HYDROmorphone HCl 0.5 MG/0.5 ML SYRINGE IVPUSH ×2 (05:30→20:42)
--- NOTE | 2024-01-05 07:00 | CA_ITS ---
Transthoracic Echocardiogram Patient (Last, First, Middle): Nargis Hale, Gender: Female Date of : 1960 Age: 63 Procedure Date: 01/05/2024 Procedure Type: Transthoracic Echocardiogram Location: [facility] [place] Height: 157. cm Weight: 77.11 kg BSA: 1.78 m2 Heart Rate: 101 bpm BP: 117 / 76 mmHg Active Directory Architect: VICKI Referring MD: Aiden Nieto MD Symptoms: ?chf Study Quality: Fair w/Contrast ECG Rhythm: Tachycardia Conclusions: - The left ventricular systolic function is moderately decreased. The visually estimated ejection fraction is between 35-40%. - No obvious valvular pathology seen on this study. Findings Procedure Information Contrast agent, definity, is being given per protocol without apparent complications. Left Ventricle Normal left ventricular cavity size. There is mildly increased left ventricular wall thickness. The left ventricular systolic function is moderately decreased. The visually estimated ejection fraction is between 35 40%. There is moderate global hypokinesis. Diastolic function is indeterminate on the basis of available data. Right Ventricle Mildly increased right ventricular cavity size. There is moderately decreased right ventricular systolic function. Atria Both atria are normal in size. Aortic Valve The aortic valve was not well visualized. There is no aortic valve stenosis. There is no aortic valve regurgitation. Mitral Valve The mitral valve appears normal. There is trace mitral valve regurgitation. There is no mitral valve stenosis. Pulmonic Valve The pulmonic valve is likely normal. Tricuspid Valve There is trace tricuspid valve regurgitation. There is no evidence of pulmonary hypertension. Great Vessels The asc aorta is normal in size. Small plaque is seen in the sinuses of Valsalva. Venous The inferior vena cava is normal in size and collapses less than 50% with inspiration. Prior Study Comparison No prior study available for comparison. Recommendations, Care & Conclusions No obvious valvular pathology seen on this study. Measurements 2D Linear Measurements IVSd: 1.07 0.6-0.9/0.6-1.0 cm LVIDd: 4.97 3.9-5.3/4.2-5.9 cm LVIDd Index: 2.79 2.4-3.2/2.2-3.1 cm/m2 LVIDs: 3.93 2.0-3.6 cm LVPWd: 1.07 0.7-1.1 cm LA Diam: 2.70 2.7-3.8/3.0-4.0 cm LAIDs Index: 1.52 1.5-2.3 cm/m2 LV Mass: 246.13 67-162/88-224 g LV Mass Index: 138.27 43-95/49-115 g/m2 LVOT Diam: 1.80 3.0+(-)1.3 cm 2D Systolic Function EF 4C: 45.90 >55% EF 2C: 44.50 >55% EF BiP: 45.90 >55% Mitral Valve E'Lateral: 4.35 E'Medial: 3.70 Aortic Valve AoV Pk Mandeep: 1.28 AoV Mn Mandeep: 0.94 AoV VTI: 0.18 AoV Pk Grad: 7.00 Aov Mn Grad: 4.00 DEISY Cont.VTI: 2.22 LVOT LVOT Pk Mandeep: 1.13 LVOT Mn Mandeep: 0.76 LVOT VTI: 0.15 LVOT Pk Grad: 5.00 LVOT Mn Grad: 3.00 LVOT Diam: 1.80 LVOT Area: 2.54 Diastolic Function E'Medial: 3.70 E' Laterial: 4.35 Right Ventricle TAPSE (mm): 9.68 TVS' Mandeep: 8.49 Tricuspid Valve TR Pk Mandeep: 1.60 TR Pk Grad: 10.00 RA Press: 8.00 RVSP: 18.00 Great Vessels Aorta Sinus of Valsalva: 3.00 2.0-3.5 cm Ao Asc: 3.40 2.1-3.4 cm Pulmonary Valve PV Pk Mandeep: 1.11 Peak PV Grad: 5.00 Updated in Other Vendor System with Status of Final Fili Hernandez MD electronically signed on 01/05/2024 4:37:06 PM with status of Final
[2024-01-05] MEDS: Albuterol/Iprat 2.5/0.5MG 3 ML AMPUL.NEB INHALE ×4 (07:26→18:42)
--- NOTE | 2024-01-05 08:10 | P.PNNP_ITS ---
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 Presented 12/28 with shortness of breath, failure to thrive poor PO intake. ICU care for severe DANIELA and metabolic acidosis, acute hypoxic resp failure d/t hydropneumothorax; now on medicine floor on HFNC. creatinine on 12/16 was 1.71 labs on 12/28: Na 133, K 2.4, CO2 13, AG 29, BUN 155, creatinine 11.65 creatinine trending down, 01/03 creatinine 1.83, 01/04 is 1.38 hyernatremia, sodium level 147 01/03, 145 is 01/04 (reduced furosemide dose) potassium 2.8 on 01/04 currently has D5W at 50mL/hr, also on furosemide 40mg IVP PO daily (reduced from 40mg BID yesterday, and LR IVF dicontinued yesterday). CT abdomen/pelvis 12/28 kidneys/ureters unremarkable without hydronephrosis, hydroureter, calculi. Pt on HFNC today states her breathing is comfortable denies chest pain, states ongoing mild abdominal pain in lower abdomen denies pain or difficulty emptying her bladder, denies blood in urine denies other concerns/new symptoms at this time Physical Exam 2 Vital Signs: Vital Signs: Last Vital Signs Temp 97.9 F 01/05/24 06:58 Pulse 101 H 01/05/24 07:27 Resp 20 01/05/24 07:28 BP 117/76 01/05/24 06:58 Pulse Ox 92 01/05/24 06:58 O2 Del Method High Flow Nasal C annula 01/05/24 06:58 O2 Flow Rate 35 01/05/24 06:58 FiO2 45 01/05/24 06:58 BMI result Body Mass Index 31.1 Const: General: no acute distress, alert and awake Neck: Neck: Yes no JVD Resp: Effort & Inspection: normal respiratory effort and able to speak in complete sentences Auscultation: clear to auscultation bilaterally Cardio: Jugular venous distension: no JVD Rate: regular rate Rhythm: r egular rhythm Heart sounds: S1 normal heart sound present and S2 normal heart sound present GI: Palpation (GI): Soft to palpation and nontender : General: Yes no CVA tenderness Back/Spine/Pelvis: Back: no CVA tenderness Skin: Lesions: no lesions Rashes: no rashes Extrem: General: No edema Objective Data Labs 01/05/24 08:51 01/05/24 08:51 Labs: Laboratory Results - last 24 hr 01/05/24 08:51 WBC 1.6 L RBC 2.68 L Hgb 7.9 L Hct 24.4 L MCV 91.0 MCH 29.5 MCHC 32.4 RDW 14.9 Plt Count 25 L D MPV 11.7 Immature Gran % (Auto) Cancelled Neut % (Auto) Cancelled Lymph % (Auto) Cancelled [place] % (Auto) Cancelled Eos % (Auto) Cancelled Baso % (Auto) Cancelled Lymph # (Auto) Cancelled [place] # (Auto) Cancelled Eos # (Auto) Cancelled Baso # (Auto) Cancelled Abs Immat Gran (auto) Cancelled Absolute Neuts (auto) Cancelled Absolute Nucleated RBC 0.030 H Nucleated RBC % (auto) 1.8 H Sodium 145 Potassium 2.8 L* Chloride 100 Carbon Dioxide 31 H Anion Gap 17 BUN 40 H Creatinine 1.38 Estim Creat Clear Calc 40.6 Estimated GFR 39 Random Glucose 155 H Calcium 6.3 L D Magnesium 1.9 B-Natriuretic Peptide 3760 H Microbiology Microbiology Results: Microbiology 12/29/23 12:34 Blood - Venous Blood Culture - Final No growth after 5 days. 12/31/23 14:30 Blood - Venous Blood Culture - Preliminary No growth after 48 hours. 12/31/23 14:36 Blood - Venous Blood Culture - Preliminary No growth after 48 hours. 12/29/23 13:10 Blood - Venous Blood Culture - Final Escherichia coli 12/29/23 18:29 Urine clean catch - Clean Catch Midstream Urine Culture - Final No growth. Procedures Date of Service Date of Service: 01/05/24 Assessment & Plan Assessment and plan (1) Acute renal failure: Status: Acute (2) Acute hypokalemia: Status: Acute (3) Metabolic acidosis: Status: Acute (4) Breast cancer metastasized to bone: Status: Acute Plan Acute renal failure most likely due to ATN from hypoperfusion (volume loss from severe diarrhea) Improved, may have some more gradual improvement over time from ATN though may be new baseline recommend stop D5W and encourage increased PO free water intake recommend decrease lasix by 50% to 20mg IVP daily recommend discontinuing all bicarbonate as pt is alkalotic; likely contributing to hypokalemia- replace potassium as needed recommend close blood pressure and I&O monitoring recommend avoiding nephrotoxins will continue to follow Discussed with Dr Escoto Time Spent With Patient Time: Total time managing care of this patient today ____ minutes. Progress Note: Quality Stroke Does the patient have a stroke diagnosis?: No
[2024-01-05 09:05] LABS: Hematocrit 24.4 % (37.0-47.0); Hemoglobin 7.9 g/dl (12.0-16.0); Mean Corpuscular HGB Conc 32.4 g/dl (31.0-35.0); Mean Corpuscular Hemoglobin 29.5 pg (27.0-33.0); Mean Platelet Volume 11.7 fL (9.4-12.3); Red Blood Count 2.68 X10*6/uL (4.20-5.50); Red Cell Distribution Width 14.9 % (11.0-16.0)
[2024-01-05 09:19] LABS: NRBC Pct Auto 1.8 /100WBC (0.0-0.2); Platelet Count 25 X10*3/uL (160-400); WBC ABN SCTR FOR CBC 1
[2024-01-05 09:20] LABS: White Blood Count 1.6 X10*3/uL (4.8-10.8)
[2024-01-05] MEDS: Furosemide 40 MG/4 ML VIAL IVPUSH (09:22)
[2024-01-05] MEDS: 0.9 % Sodium Chloride Flush 3 ML SYRINGE IVFLUSH ×3 (09:24→20:42)
[2024-01-05] MEDS: Potassium Chloride/H20 10 MEQ/100 ML PIGGYBACK 100 MEQ IV ×4 (09:29→14:41)
[2024-01-05 09:34] LABS: B Type Natriuretic Peptide 3760 pg/mL (<100)
[2024-01-05 09:49] LABS: Anion Gap 17 (12-20); Blood Urea Nitrogen 40 mg/dL (9-16); Calcium 6.3 mg/dL (8.4-10.2); Carbon Dioxide 31 mmol/L (22-29); Chloride 100 mmol/L (96-108); Creatinine Clr Calc Pharmacy 40.6; Estimated Glomerular Filt Rate 39; Glucose Random 155 mg/dL (60-115); Magnesium 1.9 mg/dL (1.6-2.6); Potassium 2.8 mmol/L (3.3-5.1); Sodium 145 mmol/L (135-145)
[2024-01-05 10:37] LABS: Band Neutrophils Percent 0 % (3-5); Lymphocytes Absolute Manual 0.8 X10*3/uL (1.2-4.9); Lymphocytes Percent Manual 49 % (20-40); Monocytes Percent Manual 1 % (2-11); Neutrophils Absolute Manual 0.8 X10*3/uL (2.0-8.3); Neutrophils Percent Manual 50 % (45-73); Nucleated Red Blood Cells 1 /100WBC (0-0)
[2024-01-05 10:39] LABS: Platelet Estimate DECREASED (NORMAL); RBC Morphology NORMAL
[2024-01-05 10:40] LABS: Platelet Morphology Comment NORMAL
--- NOTE | 2024-01-05 12:09 | PM.HEMONCPN ---
Medical Summary - Medical Summary Date of Service: 01/06/24 Chief complaint: Cough and shortness of breath Primary Care Provider: Unknown Physician Medical Summary: Diagnosis-metastatic breast cancer a CT chest in 10/30/2023 revealed large right pleural effusion, evidence of multiple spinal lesions worrisome for metastatic disease as well as ascites and abnormal retroperitoneal adenopathy. CT scan of the abdomen pelvis from 10/22 revealed: Multiple sclerotic lesions throughout all the bony structures concerning for metastatic disease. Asymmetric thickening left breast concerning for malignancy. Large layering right pleural effusion with consolidation/atelectasis on the right. New line small amount of ascites without bowel obstruction. The bowel does appear to be drawn to the posterior central pelvis without discrete soft tissue mass. Small splenule versus implant left upper quadrant. Mildly enlarged celiac axis and prominent left portacaval lymph nodes. Bilateral right greater than left hydronephrosis likely from UPJ obstruction. 10/28/2023. Left breast needle biopsy: Minute focus of invasive lobular carcinoma, grade 2. LVI not identified. ER positive 100%, strong intensity. CA positive 100% strong intensity. HER2 Gurmeet: Low 1+. Ki-67 expression: High 20% positive, moderate intensity. 10/30/23: She underwent right thoracentesis. No x-ray was done after. Thoracentesis: Metastatic adenocarcinoma. About 3 weeks later she went back for shortness of breath. By this time the PET scan was done and revealed a large pneumothorax. She was transferred to [facility]. There 1.2 L of pleural fluid were removed. 11/12/2023. Pathology: Skin, left lower outer breast, excision: Invasive lobular carcinoma, grade 2, involving skin, dermis and subcutaneous tissue. Molecular studies for NGS and PD-L1 have been ordered. PET scan from revealed: Large right pneumothorax presumed from pleural Mets. Locally advanced infiltrative left breast malignancy with extension to the ipsilateral pectoralis muscle and axilla. Trent involvement of the left axilla and internal mammary trent chain. Metastatic disease to the chest, right lung, right-sided large malignant pleural effusion, peritoneal carcinomatosis and small ascites and multiple osseous lesions. Abnormal diffuse thickening and uptake in the proximal and mid stomach raises the concern for linitis gastric iron light of the other findings. Severe right hydronephrosis however is likely due to narrowing at the ureteropelvic junction rather than peritoneal carcinomatosis. Mild left hydro ureteral nephrosis could be due to peritoneal disease. Intense focal uptake gluteal major insertion of the right and mid on the left. Bulky left adnexa is incompletely evaluated. 11/17/2023. MRI of the brain: New line no acute intracranial abnormality. Moderate senescent and chronic microangiopathic changes. No abnormal enhancement to suggest intracranial metastases. Interval History Interval history: Nargis Hale is a 63 year old female who was diagnosed in 10/30/2023 with metastatic breast cancer. She is currently admitted for acute renal failure, oncology consultation has been called to discuss goals of care. As detailed in medical summary, patient was diagnosed with metastatic breast cancer, she had a right pleural effusion with multiple spinal metastasis as well as retroperitoneal lymphadenopathy. Biopsy revealed invasive lobular carcinoma that was strongly ER/CA positive. Patient was started on letrozole in October, end of November she was started on abemaciclib. Unfortunately, she developed significant nausea vomiting as well as diarrhea since she started abemaciclib. She presented to ED, her serum creatinine hamlet from 1.4-11. Chest x-ray showed worsening pneumothorax. She was transferred to the ICU because of hypotension and need for pressor support. Patient has been transferred back to [facility] as her kidney functions improved with hydration. She is now actually being diuresed as she has developed fluid overload. Unfortunately, she has developed recurrent right pneumothorax. Review of Systems - Neurologic Denies dizziness PMFSH Medical History: Medical History (Last Reviewed 12/29/23 @ 16:34 by Gabino Merchant MD) Breast cancer metastasized to bone Family History: Family History (Last Reviewed 12/29/23 @ 16:34 by Gabino Merchant MD) Sister Pancreatic cancer Maternal Grandmother Cervical cancer Social History: Social History (Last Reviewed 12/29/23 @ 16:34 by Gabino Merchant MD) Living Situation History: Household Members: Significant Other Housing: House Do you presently have visiting nurse or other home services: Do you presently have visiting nurse or other home services comment: [facility]ANNER Tobacco History: Patient Tobacco Use Status: Former Tobacco user Tobacco use type: Cigarette e-Cigarette/Vaping Use: Never Used Second Hand Smoke Exposure: No Occupation Assessmet: service: No Current occupational status: retired Home Medications and Allergies Current Medications: Current Medications Acetaminophen (Acetaminophen 325 Mg Tablet) 650 mg PO Q6H PRN PRN Reason: Pain, Mild (Pain Scale 1-3), fever or headache Albuterol/Ipratropium (Albuterol/Iprat 2.5/0.5mg 3 Ml Ampul.Neb) 3 ml INHALE RQ4H WHILE AWAKE [facility] Last Admin: 01/05/24 11:15 Dose: 3 ml Calcium Carbonate (Calcium Carbonate 750 Mg Tab.Chew) 750 mg PO Q4H PRN PRN Reason: Heartburn Dicyclomine HCl (Dicyclomine Hcl 10 Mg Capsule) 10 mg PO TIDAC PRN PRN Reason: Pain, Severe (Pain Scale 7-10) Furosemide (Furosemide 40 Mg/4 Ml Vial) 40 mg IVPUSH DAILY [facility]; Protocol Last Admin: 01/05/24 09:22 Dose: 40 mg Hydromorphone HCl (Hydromorphone Hcl 0.5 Mg/0.5 Ml Syringe) 0.25 mg IVPUSH Q2H PRN; Protocol PRN Reason: Pain, Moderate(Pain Scale 4-6) Last Admin: 01/04/24 21:00 Dose: 0.25 mg Hydromorphone HCl (Hydromorphone Hcl 0.5 Mg/0.5 Ml Syringe) 0.5 mg IVPUSH Q3H PRN; Protocol PRN Reason: Pain, Severe (Pain Scale 7-10) Last Admin: 01/05/24 05:30 Dose: 0.5 mg Dextrose (D5w) 1,000 mls @ 50 mls/hr IVCONT .Q20H [facility] Last Admin: 01/04/24 21:01 Dose: 50 mls/hr Fluconazole (Diflucan) 200 mg in 100 mls @ 100 mls/hr IV Q24H [facility] Last Infusion: 01/04/24 13:55 Dose: Infused Fentanyl (Sublimaze/Ns) 1,000 mcg in 100 mls @ 0 mls/hr IVCONT .Q0M [facility]; Protocol Acyclovir Sodium 400 mg/ (Dextrose) 108 mls @ 110 mls/hr IV Q12H [facility] Last Infusion: 01/05/24 03:26 Dose: Infused Cefepime HCl (Maxipime) 2 gm in 50 mls @ 100 mls/hr IV Q12H [facility] Potassium Chloride (Potassium Chloride/H20) 10 meq in 100 mls @ 100 mls/hr IV Q1H [facility] Stop: 01/05/24 14:29 Levalbuterol HCl (Levalbuterol Hcl 1.25 Mg/3 Ml Vial.Neb) 2.5 mg INHALE Q4H PRN PRN Reason: shortness of breath Lidocaine/Diphenhydr/Alum/Mg/Simeth (Mag&Al/Sim/Diphenhyd/Lidocaine 10 Ml Oral.Susp) 10 ml PO Q4H [facility]; Protocol Last Admin: 01/05/24 09:21 Dose: 10 ml Magnesium Hydroxide (Milk Of Magnesia 30 Ml Oral.Susp) 30 ml PO DAILY PRN PRN Reason: Constipation Naloxone HCl (Naloxone Hcl 0.4 Mg/Ml Vial) 0.2 mg IVPUSH Q2M PRN PRN Reason: Excessive sedation or RR < 8 Olanzapine (Olanzapine 10 Mg Vial) 10 mg IM DAILY PRN PRN Reason: agitation Last Admin: 01/01/24 19:39 Dose: 10 mg Ondansetron HCl (Ondansetron Hcl 4 Mg/2 Ml Vial) 4 mg IVPUSH Q4H PRN PRN Reason: Nausea and Vomiting Sodium Chloride (0.9 % Sodium Chloride Flush 3 Ml Syringe) [facility] Admin: 01/05/24 09:24 Dose: 3 ml Home Medications ?Medication ?Instructions ?Recorded ?Confirmed ?Type hydrochlorothiazide 25 mg tablet 25 mg PO DAILY 12/09/23 12/29/23 History letrozole 2.5 mg tablet 2.5 mg PO DAILY 12/09/23 12/29/23 History lisinopril 10 mg tablet 10 mg PO DAILY 12/09/23 12/29/23 History zolpidem 5 mg tablet 5 mg PO BEDTIME PRN insomnia 12/09/23 12/29/23 History acetaminophen 500 mg tablet 500 mg PO DAILY PRN Pain 12/29/23 12/29/23 History ondansetron HCl 8 mg tablet 8 mg PO Q8H PRN Nausea And Vomiting 12/29/23 12/29/23 History oxycodone 5 mg tablet 5 mg PO DAILY PRN Pain 12/29/23 12/29/23 History Allergies Allergy/AdvReac Type Severity Reaction Status Date / Time No Known Allergies Allergy Verified 12/29/23 12:16 Exam Vital signs: Vital Signs Temp 97.7 F 01/05/24 11:08 Pulse 102 H 01/05/24 11:16 Resp 24 H 01/05/24 11:16 BP 118/87 01/05/24 11:08 Pulse Ox 92 01/05/24 11:08 O2 Del Method High Flow Nasal Cannula 01/05/24 11:08 O2 Flow Rate 35 01/05/24 11:08 FiO2 45 01/05/24 11:08 Intake & Output 01/04/24 01/05/24 01/05/24 18:59 06:59 18:59 Intake Total 1008 / 2336 1328 / 2336 100 / 100 Output Total 700 / 1350 650 / 1350 Balance 308 / 986 678 / 986 100 / 100 Urine Output (Average ml/kg/hr) 0.74 0.70 0.70 Intake: Intake, Oral Amount 500 / 720 220 / 720 Intake, IV Amount 508 / 1616 1108 / 1616 100 / 100 Acyclovir Sodium 400 mg In 108 / 216 108 / 216 Dextrose 5 % 100 ml @ 110 mls/ hr IV Q12H [facility] Rx#:[id number] Fluconazole in NaCl,Iso-Osm 200 100 / 100 mg In 100 ml @ 100 mls/hr IV Q24H [facility] Rx#:[id number] Potassium Chloride/H20 10 meq 100 / 100 In 100 ml @ 100 mls/hr IV Q1H [facility] Rx#:[id number] Potassium Phosphate/NS 15 mmol 250 / 250 In 250 ml @ 62.5 mls/hr IV ONCE ONE Rx#:[id number] cefEPime HCl/D5W 2 gm In 50 ml 50 / 50 @ 100 mls/hr IV Q24H [facility] Rx#: [id number] Dextrose 5 % 1,000 ml @ 50 mls/ 1000 / 1000 hr IVCONT .Q20H [facility] Rx#: [id number] Output: Output, Urine Amount 700 / 700 Output, Urine Amount (Catheter) 650 / 650 Female External 650 / 650 Other: NPO Yes Breakfast % Eaten 0% Lunch % Eaten 0% Eating (Feeding) Ability Independent Number of Unmeasured Voids 1 Urine purewick purwik Urine Color Concentrated Yellow Weight 77.2 kg [place] Weight in Grams 90778 Weight 77.2 kg BMI result Body Mass Index 31.1 - Constitutional Present: chronically ill appearing, somnolent - Routine Respiratory Exam Present: decreased breath sounds. Absent: accessory muscle use, patient mechanically ventilated - Routine Cardiovascular Exam Cardiovascular: Present: S1, S2, tachycardia - Routine Abdominal Exam Present: soft - Routine Extremities Exam Present: pulses intact - Detailed Neurological Exam: Coma Scale Eye Opening: Spontaneous (4) Data - Labs CBC & Chem 7: 01/06/24 10:05 01/06/24 10:05 Labs: Laboratory Last Values WBC 1.6 X10*3/uL (4.8-10.8) L 01/05/24 08:51 RBC 2.68 X10*6/uL (4.20-5.50) L 01/05/24 08:51 Hgb 7.9 g/dl (12.0-16.0) L 01/05/24 08:51 Hct 24.4 % (37.0-47.0) L 01/05/24 08:51 MCV 91.0 fL (80.0-98.0) 01/05/24 08:51 MCH 29.5 pg (27.0-33.0) 01/05/24 08:51 MCHC 32.4 g/dl (31.0-35.0) 01/05/24 08:51 RDW 14.9 % (11.0-16.0) 01/05/24 08:51 Plt Count 25 X10*3/uL (160-400) L D 01/05/24 08:51 MPV 11.7 fL (9.4-12.3) 01/05/24 08:51 Immature Gran % (Auto) Cancelled 01/05/24 08:51 Neut % (Auto) Cancelled 01/05/24 08:51 Lymph % (Auto) Cancelled 01/05/24 08:51 [place] % (Auto) Cancelled 01/05/24 08:51 Eos % (Auto) Cancelled 01/05/24 08:51 Baso % (Auto) Cancelled 01/05/24 08:51 Lymph # (Auto) Cancelled 01/05/24 08:51 [place] # (Auto) Cancelled 01/05/24 08:51 Eos # (Auto) Cancelled 01/05/24 08:51 Baso # (Auto) Cancelled 01/05/24 08:51 Abs Immat Gran (auto) Cancelled 01/05/24 08:51 Absolute Neuts (auto) Cancelled 01/05/24 08:51 Absolute Nucleated RBC 0.030 X10*3/uL (0.0-0.012) H 01/05/24 08:51 Nucleated RBC % (auto) 1.8 /100WBC (0.0-0.2) H 01/05/24 08:51 Neutrophils % (Manual) 50 % (45-73) 01/05/24 08:51 Band Neutrophils % 0 % (3-5) L 01/05/24 08:51 Lymphocytes % (Manual) 49 % (20-40) H 01/05/24 08:51 Monocytes % (Manual) 1 % (2-11) L 01/05/24 08:51 Eosinophils % (Manual) 1 % (0-4) 01/04/24 05:11 Basophils % (Manual) 1 % (0-2) 12/29/23 12:37 Abs Neuts (Manual) 0.8 X10*3/uL (2.0-8.3) L 01/05/24 08:51 Lymphocytes # (Manual) 0.8 X10*3/uL (1.2-4.9) L 01/05/24 08:51 Monocytes # (Manual) 0.1 X10*3/uL (0.1-1.2) 12/31/23 04:36 Eosinophils # (Manual) 0.1 X10*3/uL (0.0-0.4) 12/29/23 12:37 Nucleated RBCs 1 /100WBC (0-0) H 01/05/24 08:51 Toxic Granulation PRESENT 01/04/24 05:11 Toxic Vacuolation PRESENT 01/01/24 04:13 Dohle Bodies PRESENT 01/04/24 05:11 Platelet Estimate DECREASED (NORMAL) 01/05/24 08:51 Large Platelets PRESENT 01/01/24 04:13 Plt Morphology Comment NORMAL 01/05/24 08:51 RBC Morphology NORMAL 01/05/24 08:51 Hypochromasia 1+ (5-14) /OIF 01/04/24 05:11 Target Cells 1+ (5-14) /OIF 01/04/24 05:11 Ovalocytes 1+ (5-14) /OIF 01/01/24 04:13 Stomatocytes 1+ (5-14) /OIF 01/01/24 04:13 George Cells 2+ (3-5) /OIF 12/29/23 12:37 Schistocytes 1+ (0-2) /OIF 01/01/24 04:13 Smear Tech's Comments VERIFIED 01/03/24 04:42 Smear Path Review SEE NOTE 01/04/24 05:11 PT 15.5 SEC (10.9-12.4) H 12/29/23 12:37 INR 1.3 (0.9-1.1) H 12/29/23 12:37 APTT 31.4 SEC (26.0-36.8) 12/29/23 12:37 VBG pH 7.61 (7.32-7.43) H* 01/04/24 05:10 VBG pCO2 34 mmHg 01/04/24 05:10 VBG pO2 53 mmHg 01/04/24 05:10 VBG HCO3 35 mmol/L (22-26) H 01/04/24 05:10 VBG O2 Saturation 88.0 % 01/04/24 05:10 VBG Base Excess 13.2 mmol/L 01/04/24 05:10 Sodium 145 mmol/L (135-145) 01/05/24 08:51 Potassium 2.8 mmol/L (3.3-5.1) L* 01/05/24 08:51 Chloride 100 mmol/L (96-108) 01/05/24 08:51 Carbon Dioxide 31 mmol/L (22-29) H 01/05/24 08:51 Anion Gap 17 (12-20) 01/05/24 08:51 BUN 40 mg/dL (9-16) H 01/05/24 08:51 Creatinine 1.38 mg/dL (0.5-1.4) 01/05/24 08:51 Estim Creat Clear Calc 40.6 01/05/24 08:51 Estimated GFR 39 01/05/24 08:51 Random Glucose 155 mg/dL (60-115) H 01/05/24 08:51 Lactic Acid 1.4 mmol/L (0.5-2.0) 12/30/23 01:06 Calcium 6.3 mg/dL (8.4-10.2) L D 01/05/24 08:51 Phosphorus 1.7 mg/dL (2.7-4.5) L 01/04/24 05:11 Magnesium 1.9 mg/dL (1.6-2.6) 01/05/24 08:51 Total Bilirubin 0.9 mg/dL (0.0-1.0) 01/04/24 05:11 Direct Bilirubin Cancelled 01/01/24 20:50 AST 385 U/L (5-31) H 01/04/24 05:11 ALT 433 U/L (0-31) H 01/04/24 05:11 Alkaline Phosphatase 46 U/L (39-117) 01/04/24 05:11 Troponin I High Sens 105.7 ng/L (<3.5-17.0) H* 12/29/23 12:34 Total Protein 6.1 g/dL (6.5-8.0) L 01/04/24 05:11 B-Natriuretic Peptide 3760 pg/mL (<100) H 01/05/24 08:51 Albumin 3.7 g/dL (3.5-5.0) 01/04/24 05:11 Lipase Cancelled 01/01/24 20:50 PTH Intact 861.4 pg/mL (8.7-77.1) H 01/01/24 20:49 Urine Color Dark Yellow 12/29/23 18:00 Urine Appearance Turbid 12/29/23 18:00 Urine pH 5.0 (5.0-9.0) 12/29/23 18:00 Ur Specific [place] 1.025 (1.005-1.025) 12/29/23 18:00 Urine Protein 300 (3+) mg/dL (Neg-Trace) H 12/29/23 18:00 Urine Glucose (UA) Negative mg/dL (Negative) 12/29/23 18:00 Urine Ketones Negative mg/dL (Negative) 12/29/23 18:00 Urine Blood Moderate (2+) (Negative) H 12/29/23 18:00 Urine Nitrite Negative (Negative) 12/29/23 18:00 Ur Leukocyte Esterase Large (3+) (Negative) H 12/29/23 18:00 Urine RBC >20 /HPF (0-2) H 12/29/23 18:00 Urine WBC >50 /HPF (0-5) H 12/29/23 18:00 Ur Squamous Epith Cells 6-10 /HPF (0-2) 12/29/23 18:00 Urine Bacteria 3+ (None Seen) 12/29/23 18:00 Hyaline Casts 0-2 /LPF (0-2) 12/29/23 18:00 Blood Type O Positive 12/29/23 13:00 Antibody Screen NEGATIVE 12/29/23 13:00 - Imaging Radiologist's impression: ITS Impressions Chest X-Ray 12/29/23 13:20 IMPRESSION: Concerning right-sided hydropneumothorax with a partially collapsed right lung. Chronic interstitial lung disease superimposed malignancy cannot be entirely excluded. Electronically signed by: Dawit Barnard MD 12/29/2023 02:17 PM EST RP Abdomen/Pelvis CT 12/29/23 16:07 IMPRESSION: Right hydropneumothorax. Innumerable sclerotic lytic metastasis. Fleischner guidelines were followed. Electronically signed by: Nazario Babcock MD 12/29/2023 06:15 PM EST RP Chest X-Ray 12/30/23 01:17 IMPRESSION: Persistent right hydropneumothorax, moderate volume. Partially collapsed right lung. Overall no gross change. Electronically signed by: Dawit Barnard MD 12/30/2023 07:06 AM EST RP Chest CT 12/30/23 03:25 IMPRESSION: Right-sided hydropneumothorax, large volume. Partially collapsed right lung. Mild interstitial lung edema. Numerous blastic osseous metastasis. Discussed with the nurse, Juan, at the time of the interpretation on December 30, 2023 at 8:15 AM. Fleischner guidelines were followed. Electronically signed by: Dawit Barnard MD 12/30/2023 08:17 AM EST RP Chest X-Ray 12/30/23 05:08 IMPRESSION: 1. Unchanged diffuse vascular and interstitial prominence in bilateral lungs, partially collapsed right lung. 2. Persistent large 30% right hydropneumothorax. 3. Interval placement of Right lateral lung base percutaneous thoracostomy pigtail drainage catheter. Electronically signed by: Sana Cohen MD 12/30/2023 07:31 AM EST RP Chest X-Ray 01/01/24 09:30 IMPRESSION: 1. Slight repositioning of the right pleural catheter. 2. Right hydropneumothorax is significantly smaller but remains present. 3. Similar diffuse bilateral patchy interstitial and alveolar pulmonary opacities. 4. Blastic metastases of the skeletal structures. Electronically signed by: Alexandro Samayoa MD 01/01/2024 11:03 AM EST RP Chest X-Ray 01/02/24 14:20 IMPRESSION: 1. Right-sided chest tube in unchanged position with a persistent right apical pneumothorax, similar when compared to the prior examination. 2. Small right-sided pleural effusion with right basilar airspace opacities, unchanged. 3. Left basilar airspace opacities, slightly increased. Electronically signed by: Suresh Villareal MD 01/02/2024 07:41 PM EST RP Abdomen Ultrasound 01/03/24 12:28 IMPRESSION: 1. Probable gallbladder wall polyp measuring 0.5 cm. No cholelithiasis, gallbladder wall thickening, or pericholecystic free fluid to suggest acute cholecystitis. 2. Mild right renal pelvic fullness. 3. Pancreas obscured by overlying bowel gas. Electronically signed by: Suresh Villareal MD 01/03/2024 03:04 PM EST RP Chest X-Ray 01/03/24 15:00 IMPRESSION: 1. Right chest tube has been removed. 2. Slightly increased right pneumothorax. No evidence of tension. 3. Diffuse interstitial opacification and bilateral subpulmonic pleural effusions unchanged. (Referring physician staff is being called, by physician staff assistance, to be alerted of the above critical findings and recommendations.) A J 01/03/2024 2:46 PM EDUCATION REPORTER 1. Electronically signed by: Chip Barnse MD 01/03/2024 03:47 PM EST RP Assessment and Plan Patient Active problem list reviewed?: Yes (1) Breast cancer metastasized to bone Status: Acute Assessment and plan: 1. This is a 63-year-old woman who was diagnosed with metastatic breast cancer in October 2023. She presented with large right pleural effusion and multiple spinal metastasis as well as ascites and retroperitoneal lymphadenopathy. Left breast biopsy revealed invasive lobular carcinoma, grade 2, ER positive 100% CA positive 100% HER2 Gurmeet low 1+ Ki 67 expression high 20%. PET scan revealed large right pneumothorax from pleural Mets, locally advanced infiltrative left breast malignancy with extension to ipsilateral pectoralis muscle and axilla, involvement of the left axilla internal mammary nodes. Large malignant right pleural effusion, peritoneal carcinomatosis and small ascites, multiple osseous lesions. Abnormal uptake in the proximal and mid stomach raising concern for linitis, severe right hydronephrosis secondary to narrowing of UP junction, bulky left adnexa which is incompletely evaluated. Patient was seen by Dr. Ochoa in consultation, she was started on letrozole in October and abemaciclib 200 p.o. b.i.d. on 12/09/2023. She was started on denosumab for bone metastasis. On 12/17/2023 she complained of diarrhea, patient was advised to decrease dose of abemaciclib. On 12/30/2023 patient presented with worsening GI symptoms of nausea, vomiting and diarrhea. She presented with acute kidney failure secondary to dehydration and worsening right hydropneumothorax. She had an appointment for PleurX catheter placement at [facility] yesterday, appears that patient may not have gone for the appointment. Compared to recent PET scan, current imaging with CT chest/abdomen and pelvis without contrast may be showing some improvement in her metastasis in the abdomen. She does have extensive bone metastasis. Although patient has metastatic breast cancer that is incurable, with palliative treatment patients with ER/CA positive breast cancer are able to live for years. If her kidney functions reverse and her hydropneumothorax can be addressed successfully, she can continue to receive palliative hormonal therapy with CDK4 6 inhibitor which appears to be helping her cancer. She is young and does not have any significant other comorbidities, it would be reasonable to continue ongoing palliative treatment of her breast cancer if patient is willing. Both patient and her have been undecided about course of action. They have been slightly more encouraged as her kidney functions have improved. Unfortunately however, she has developed recurrent large right pneumothorax. They would like to have her life prolonged if there is any chance of addressing acute issues such as the pneumothorax. 2. Pancytopenia. This is multifactorial. CDK4/6 inhibitor is on hold. Transfuse blood and platelets, continue supportive care. All of the above was explained to patient and . - Time Spent With Patient Time Spent with Patient (in minutes): 25
--- NOTE | 2024-01-05 12:58 | MHC.SL.DTX ---
Dysphagia Diet modifications: Last documented Solid diet consistencies: NPO Last documented Liquid consistency: NPO Changes made to current diet?: No: Continue NPO Liquid Consistency and Strategies: Liquid Intake Recommendation: Thin Compensatory Strategies for Safe Swallow: Small Sips No Straws Compensatory Strategies for Safe Swallow(b): Sitting Upright (90 deg) No Straw Liquids from Cup Small Bites and Sips Alternate Liquids/Solids Rate of Ingestion Change Oral Check Avoid Specific Foods Solid Food Consistency: Dietary Recommendations: Pureed (NDD1) Additional Modifications to Solids: Provide patient with single ice chips to dissolve in mouth to relieve pain, moisten mouth. Oral Medication Intake: Crushed with Puree Strategies and Precautions to be Taken for Safe Swallow: Sitting Upright (90 deg) No Straw Liquids from Cup Small Bites and Sips Alternate Liquids/Solids Rate of Ingestion Change Oral Check Avoid Specific Foods Supervision While Eating and/Drinking: PO with SLICE PLUG CUTTER OPERATOR HELPER Foods to Avoid: Acidic foods (apple sauce, tomato sauce) that may increase discomfort. Swallowing Recommended Treatments: Compens. Strategy Educat. Level of Impact on: Daily activities: Severe Interpersonal interactions: Education: None Employment: None Community: Moderate Prognosis for Improvement: Good Recommendation for Speech: Inpatient Speech Therapy Comment: Re-assess when appropriate Frequency/Duration: Date Range for Service Req: Timeline to reassess: Additional Comments: Patient with severe ondynophagia, lesions evident in mouth, lips, c/o painful swallow. Treatment: Pt is resting in bed with HFNC at 35L. She is alert and requesting Ice Cream. She tolerates bites of Thin Liquids via Ice Chipd and Ice Cream with adequate oral preparation and clearance with no overt s/s of aspiration. With each bite however she made a visible grimace and audible groan of discomfort. Nonetheless however her desire to eat seemed to overcome this discomfort as she continued to try an eat. From an SLICE PLUG CUTTER OPERATOR HELPER standpoint, she appears to be protecting her airway before and after the swallow. Recommend initiate diet of Puree Solids and Thin Liquids, as tolerated. Meds Crushed in Puree. Monitor PO intake and patient toleration. Alternative means of nutrition may be indicated if she cannot tolerate meals or medications. and RD notified via text message. Rustic Terrazzo Setter Clinican/Clinical Fellow: No Supervisory Statement: I have reviewed and agree with the student/clinical fellow's documentation: N/A Speech Language Pathologist: Norbert Tesfaye M.A., [facility]-SLICE PLUG CUTTER OPERATOR HELPER
--- NOTE | 2024-01-05 13:52 | PM.PNTS ---
Subjective Subjective Date of Service: 01/05/24 Interval history: Patient was seen and original consultation a few days ago for respiratory failure and other comorbidities as well as right pneumothorax. She had a chest tube placed by ICU at that time. Patient was known to have a chronic right pneumothorax. She has significant carcinomatosis. Physical Exam Vital Signs: Vital Signs: Last Vital Signs Temp 97.7 F 01/05/24 11:08 Pulse 102 H 01/05/24 11:16 Resp 24 H 01/05/24 11:16 BP 118/87 01/05/24 11:08 Pulse Ox 92 01/05/24 11:08 O2 Del Method High Flow Nasal C annula 01/05/24 11:08 O2 Flow Rate 35 01/05/24 11:08 FiO2 45 01/05/24 11:08 BMI result Body Mass Index 31.1 Const: Other: Patient was in mild respiratory distress with supplemental oxygen. She is able to converse but with significant dyspnea in doing so. Chest: Other: With sounds bilaterally, distant breath sounds consistent with COPD. Procedures Date of Service Date of Service: 01/05/24 Progress Note: A&P Assessment and plan (1) Pneumothorax, right: Status: Acute (2) Breast cancer metastasized to bone: Status: Acute Plan Chest x-ray demonstrates right apical pneumothorax. I will consult IR for possible right apical chest tube placement. If the patient has a trapped lung, this process will be chronic. Patient is a non operative candidate and no surgical intervention will be undertaken because of her very frail and debilitated state along with her carcinomatosis/stage IV breast cancer status Time Spent With Patient Time: Total time managing care of this patient today ____ minutes. Quality Stroke Does the patient have a stroke diagnosis?: No VTE Prior VTE?: No VTE Risk Level:: Medical - moderate - high VTE Device Contraindication: Treatment Not Indicated VTE Drug Contraindication: N/A - Med Ordered
--- NOTE | 2024-01-05 15:22 | MHC.CM.PN ---
Per Dr. Nieto's request, CM has requested a Hospice Informational(? GIP appropriate); CM will follow.
[2024-01-05 15:49] LABS: INTERNATIONAL NORM RATIO 1.7 (0.9-1.1); Prothrombin Time 20.4 SEC (10.9-12.4)
[2024-01-05 15:51] LABS: Partial Thromboplastin Time 28.7 SEC (26.0-36.8)
[2024-01-05] MEDS: cefEPime HCl/D5W 2 GM/50 ML PIGGYBACK IV (16:45)
[2024-01-05] MEDS: Fluconazole in NaCl,Iso-Osm 200 MG/100 ML PIGGYBACK 100 MG IV (17:21)
--- NOTE | 2024-01-05 17:24 | P.PNIM_ITS ---
Subjective Subjective Date of Service: 01/05/24 Interval History: hypoxia right sided pneumothorax, pancytopenia Review of Systems sob seems similar to yesterday unable to wean from oxygen Physical Exam 2 Vital Signs: Vital Signs: Last Vital Signs Temp 97.7 F 01/05/24 11:08 Pulse 109 H 01/05/24 15:01 Resp 26 H 01/05/24 15:01 BP 118/87 01/05/24 11:08 Pulse Ox 92 01/05/24 11:08 O2 Del Method High Flow Nasal C annula 01/05/24 11:08 O2 Flow Rate 35 01/05/24 11:08 FiO2 45 01/05/24 11:08 BMI result Body Mass Index 31.1 General: AO X 3, no acute distress Resp:air entry dimished right upper lobe CVS: S1,S2,RRR GI: +BS, NT, no distention Skin: No rash Neuro: motor grossly intact Psych: appropriate affect Objective Data Active Medications Acetaminophen (Acetaminophen 325 Mg Tablet) 650 mg PO Q6H PRN PRN Reason: Pain, Mild (Pain Scale 1-3), fever or headache Albuterol/Ipratropium (Albuterol/Iprat 2.5/0.5mg 3 Ml Ampul.Neb) 3 ml INHALE RQ4H WHILE AWAKE [facility] Last Admin: 01/05/24 15:01 Dose: 3 ml Documented By: ERIN Calcium Carbonate (Calcium Carbonate 750 Mg Tab.Chew) 750 mg PO Q4H PRN PRN Reason: Heartburn Dicyclomine HCl (Dicyclomine Hcl 10 Mg Capsule) 10 mg PO TIDAC PRN PRN Reason: Pain, Severe (Pain Scale 7-10) Furosemide (Furosemide 40 Mg/4 Ml Vial) 40 mg IVPUSH DAILY [facility]; Protocol Last Admin: 01/05/24 09:22 Dose: 40 mg Documented By: AUDREY Hydromorphone HCl (Hydromorphone Hcl 0.5 Mg/0.5 Ml Syringe) 0.25 mg IVPUSH Q2H PRN; Protocol PRN Reason: Pain, Moderate(Pain Scale 4-6) Last Admin: 01/04/24 21:00 Dose: 0.25 mg Documented By: RAIZA Hydromorphone HCl (Hydromorphone Hcl 0.5 Mg/0.5 Ml Syringe) 0.5 mg IVPUSH Q3H PRN; Protocol PRN Reason: Pain, Severe (Pain Scale 7-10) Last Admin: 01/05/24 05:30 Dose: 0.5 mg Documented By: RAIZA Fentanyl (Sublimaze/Ns) 1,000 mcg in 100 mls @ 0 mls/hr IVCONT .Q0M [facility]; Protocol Acyclovir Sodium 400 mg/ (Dextrose) 108 mls @ 110 mls/hr IV Q12H [facility] Last Admin: 01/05/24 16:45 Dose: 110 mls/hr Documented By: ELIZABETH Cefepime HCl (Maxipime) 2 gm in 50 mls @ 100 mls/hr IV Q12H [facility] Last Admin: 01/05/24 16:45 Dose: 100 mls/hr Documented By: ELIZABETH Fluconazole (Diflucan) 200 mg in 100 mls @ 100 mls/hr IV Q24H [facility]ON Levalbuterol HCl (Levalbuterol Hcl 1.25 Mg/3 Ml Vial.Neb) 2.5 mg INHALE Q4H PRN PRN Reason: shortness of breath Lidocaine/Diphenhydr/Alum/Mg/Simeth (Mag&Al/Sim/Diphenhyd/Lidocaine 10 Ml Oral.Susp) 10 ml PO Q4H [facility]; Protocol Last Admin: 01/05/24 13:15 Dose: 10 ml Documented By: AUDREY Magnesium Hydroxide (Milk Of Magnesia 30 Ml Oral.Susp) 30 ml PO DAILY PRN PRN Reason: Constipation Naloxone HCl (Naloxone Hcl 0.4 Mg/Ml Vial) 0.2 mg IVPUSH Q2M PRN PRN Reason: Excessive sedation or RR < 8 Olanzapine (Olanzapine 10 Mg Vial) 10 mg IM DAILY PRN PRN Reason: agitation Last Admin: 01/01/24 19:39 Dose: 10 mg Documented By: CECELIA Ondansetron HCl (Ondansetron Hcl 4 Mg/2 Ml Vial) 4 mg IVPUSH Q4H PRN PRN Reason: Nausea and Vomiting Sodium Chloride (0.9 % Sodium Chloride Flush 3 Ml Syringe) [facility] Last Admin: 01/05/24 17:02 Dose: 3 ml Documented By: ELIZABETH Labs 01/05/24 08:51 01/05/24 08:51 Labs: Laboratory Results - last 24 hr 01/05/24 01/05/24 01/05/24 08:51 15:28 15:30 MCV 91.0 MCH 29.5 MCHC 32.4 RDW 14.9 Plt Count 25 L D MPV 11.7 Immature Gran % (Auto) Cancelled Neut % (Auto) Cancelled Lymph % (Auto) Cancelled [place] % (Auto) Cancelled Eos % (Auto) Cancelled Baso % (Auto) Cancelled Lymph # (Auto) Cancelled [place] # (Auto) Cancelled Eos # (Auto) Cancelled Baso # (Auto) Cancelled Abs Immat Gran (auto) Cancelled Absolute Neuts (auto) Cancelled Absolute Nucleated RBC 0.030 H Nucleated RBC % (auto) 1.8 H Neutrophils % (Manual) 50 Band Neutrophils % 0 L Lymphocytes % (Manual) 49 H Monocytes % (Manual) 1 L Abs Neuts (Manual) 0.8 L Lymphocytes # (Manual) 0.8 L Nucleated RBCs 1 H Platelet Estimate DECREASED Plt Morphology Comment NORMAL RBC Morphology NORMAL PT 20.4 H D INR 1.7 H APTT 28.7 Anion Gap 17 Estim Creat Clear Calc 40.6 Estimated GFR 39 Random Glucose 155 H Calcium 6.3 L D Magnesium 1.9 B-Natriuretic Peptide 3760 H Hold Red Top See Note Blood Type O Positive Antibody Screen NEGATIVE Crossmatch See Detail Microbiology Microbiology Results: Microbiology 12/31/23 14:30 Blood Culture - Final Blood - Venous No growth after 5 days. 12/31/23 14:36 Blood Culture - Final Blood - Venous No growth after 5 days. Assessment and Plan (1) Acute renal failure: Status: Acute (2) Hypocalcemia: Status: Acute (3) Metabolic acidosis: Status: Acute (4) Breast cancer metastasized to bone: Status: Acute Plan 63-year-old woman diagnosed with metastatic breast cancer in October 2023. She was started on letrozole in October and abemaciclib 200 mg PO BID on 12/09/2023. She was also started on denosumab for bone metastases. She presented to the hospital on 12/28 with nausea and vomiting and was found to have DANIELA with a creatinine of 12, hypokalemia, and a large right-sided Hydropneumothorax. On 12/29, she developed hypotension and acute respiratory distress and was transferred to the ICU for further management of the following. Acute hypoxemic Respiratory Failure: Secondary to metabolic acidosis and Large Right sided right hydropneumothorax that required a chest tube removed. Chest X-ray increasing right sided pneumothorax. Patient remains hypoxix and still on Highflow, wean O2 as tolerated. Discussed with IR as well as with General surgery Dr. Orozco-patient is high-risk for chest tube placement, above was discussed with the patient and her in detail length-her pneumothorax progressing on the right side-offered to transfer her to tertiary [facility] for chest tube placement but patient and her declined-risk of declining chest tube discussed with them in detail length including further worsening of pneumothorax and respiratory status -this still defer chest tube and consider hospice. Acute Kidney Injury (DANIELA): Likely secondary to nausea, vomiting, and diarrhea from chemotherapy. Renal function improving with fluids, creatinine now ?1.38 down from 12 on admission. Severe Metabolic Acidosis: Resolved with IVF and bicab. Hypernatremia: due to free water deficit and volume depletion and LR,resolved. Hypocalcemia: flactuating in 6.3 range . Breast Cancer with Metastasis: November PET showed hydronephrosis, peritoneal metastases, and ascites. Recent CT showed improvement with no hydronephrosis or ascites. oncology following Pancytopenia--d/t cancer/chemo might be conrtibuting. Transaminitis: Elevated LFTs (400s/300s) likely due to passive liver congestion; Lasix 40 mg BID planned. Neutropenia and Mucositis: severe oral and probable gut mucositis. Continuing antibiotics (cefepime), antifungals (fluconazole), antivirals (acyclovir), and supportive care (magic mouthwash). Prophylaxis: Heparin, pantoprazole. Code Status: DNI/DNR. Ongoing need of hospitalization-multiple issues as above acute hypoxemic respiratory failure and pneumothorax, pancytopenia, neutropenia/mucositis/transaminitis: Continue above current management ,patient is declining chest tube placement(please see above)-risk discussed with patient and in detail length they both understand including worsening respiratory failure and . They do not want to escalate care further, if patient worsen will place comfort care , plan is to go home with hospice/comfort. patient current staff was present during phone and face to face conversations. Quality Stroke Does the patient have a stroke diagnosis?: No VTE Prior VTE?: No VTE Risk Level:: Medical - moderate - high VTE Device Contraindication: Treatment Not Indicated VTE Drug Contraindication: N/A - Med Ordered
[2024-01-05] MEDS: ondansetron HCL 4 MG/2 ML VIAL IVPUSH (18:02)
[2024-01-06] VITALS (23 sets, daily range): BP systolic 114–138; BP diastolic 69–92; PULSE 90–111; RESP 16–100; TEMP 36–36.8; O2SAT 89–99; BMI 31.7
[2024-01-06] MEDS: ACYCLOVIR SODIUM IV ×2 (01:16→18:26)
[2024-01-06] MEDS: Mag&Al/Sim/Diphenhyd/Lidocaine 10 ML ORAL.SUSP PO ×6 (01:16→19:51)
[2024-01-06] MEDS: DEXTROSE 5% IV ×2 (01:16→18:26)
[2024-01-06] MEDS: cefEPime HCl/D5W 2 GM/50 ML PIGGYBACK IV ×2 (02:14→19:59)
[2024-01-06] MEDS: HYDROmorphone HCl 0.5 MG/0.5 ML SYRINGE IVPUSH (02:18)
[2024-01-06] MEDS: Albuterol/Iprat 2.5/0.5MG 3 ML AMPUL.NEB INHALE ×4 (07:27→19:58)
--- NOTE | 2024-01-06 08:20 | P.PNNP_ITS ---
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 Presented 12/28 with shortness of breath, failure to thrive poor PO intake. ICU care for severe DANIELA and metabolic acidosis, acute hypoxic resp failure d/t hydropneumothorax; now on medicine floor on HFNC. creatinine on 12/16 was 1.71 labs on 12/28: Na 133, K 2.4, CO2 13, AG 29, BUN 155, creatinine 11.65 creatinine trending down, 01/03 creatinine 1.83, 01/04 is 1.38 hyernatremia, sodium level 147 01/03, 145 is 01/04 (reduced furosemide dose) potassium 2.8 on 01/04 currently on furosemide 40mg IVP daily, sodium 149, K 3.0, serum bicarb 32 CT abdomen/pelvis 12/28 kidneys/ureters unremarkable without hydronephrosis, hydroureter, calculi. Pt on HFNC today states her breathing is comfortable denies chest pain, states ongoing mild abdominal pain in lower abdomen denies pain or difficulty emptying her bladder, denies blood in urine denies other concerns/new symptoms at this time Physical Exam 2 Vital Signs: Vital Signs: Last Vital Signs Temp 98.2 F 01/06/24 11:25 Pulse 99 01/06/24 11:25 Resp 20 01/06/24 11:25 BP 130/77 01/06/24 11:25 Pulse Ox 93 01/06/24 11:25 O2 Del Method High Flow Nasal C annula 01/06/24 11:25 O2 Flow Rate 40 01/06/24 11:25 FiO2 50 01/06/24 11:25 BMI result Body Mass Index 31.7 Const: General: no acute distress, alert and awake Neck: Neck: Yes no JVD Resp: Effort & Inspection: normal respiratory effort and able to speak in complete sentences Auscultation: clear to auscultation bilaterally Cardio: Jugular venous distension: no JVD Rate: regular rate Rhythm: r egular rhythm Heart sounds: S1 normal heart sound present and S2 normal heart sound present GI: Palpation (GI): Soft to palpation and nontender : General: Yes no CVA tenderness Back/Spine/Pelvis: Back: no CVA tenderness Skin: Lesions: no lesions Rashes: no rashes Extrem: General: No edema Objective Data Labs 01/06/24 10:05 01/06/24 10:05 Labs: Laboratory Results - last 24 hr 01/05/24 01/05/24 01/06/24 15:28 15:30 10:05 WBC 1.6 L RBC 2.66 L Hgb 7.9 L Hct 24.6 L MCV 92.5 MCH 29.7 MCHC 32.1 RDW 14.7 Plt Count 30 L MPV 12.8 H Absolute Nucleated RBC 0.020 H Nucleated RBC % (auto) 1.2 H PT 20.4 H D INR 1.7 H APTT 28.7 Sodium 149 H Potassium 3.0 L Chloride 103 Carbon Dioxide 32 H Anion Gap 17 BUN 37 H Creatinine 1.23 Estim Creat Clear Calc 46.1 Estimated GFR 44 Random Glucose 107 Calcium 6.3 L Hold Red Top See Note Blood Type O Positive Antibody Screen NEGATIVE Crossmatch See Detail Microbiology Microbiology Results: Microbiology 12/31/23 14:30 Blood - Venous Blood Culture - Final No growth after 5 days. 12/31/23 14:36 Blood - Venous Blood Culture - Final No growth after 5 days. 12/29/23 12:34 Blood - Venous Blood Culture - Final No growth after 5 days. 12/29/23 13:10 Blood - Venous Blood Culture - Final Escherichia coli 12/29/23 18:29 Urine clean catch - Clean Catch Midstream Urine Culture - Final No growth. Procedures Date of Service Date of Service: 01/06/24 Assessment & Plan Assessment and plan (1) Acute renal failure: Status: Acute (2) Acute hypokalemia: Status: Acute (3) Metabolic acidosis: Status: Acute (4) Breast cancer metastasized to bone: Status: Acute Plan Acute renal failure most likely due to ATN from hypoperfusion (volume loss from severe diarrhea) Improving, anticipate continued improvement to baseline recommend to discontinue 40mg daily IVP lasix, may correct hypernatremia, hypokalemia and metabolic alkalosis encourage PO fluid intake recommend close blood pressure and I&O monitoring recommend avoiding nephrotoxins will continue to follow Discussed with Dr Escoto Time Spent With Patient Time: Total time managing care of this patient today ____ minutes. Progress Note: Quality Stroke Does the patient have a stroke diagnosis?: No
[2024-01-06] MEDS: 0.9 % Sodium Chloride Flush 3 ML SYRINGE IVFLUSH ×3 (10:24→19:53)
--- NOTE | 2024-01-06 10:25 | MHC.CM.PN ---
Per ROUNDS discussion, Patient and her /HCP/Delmar would like Patient to return home today, if possible, with Hospice. CM has asked [facility] to look into Patient's insurance, that this cM has been told is terminating as of tomorrow. Per Patient and Family's request, a referral has been made to [facility]. CM will follow.
[2024-01-06] MEDS: Furosemide 40 MG/4 ML VIAL IVPUSH (10:27)
[2024-01-06 11:18] LABS: Hematocrit 24.6 % (37.0-47.0); Hemoglobin 7.9 g/dl (12.0-16.0); Mean Corpuscular HGB Conc 32.1 g/dl (31.0-35.0); Mean Corpuscular Hemoglobin 29.7 pg (27.0-33.0); Mean Corpuscular Volume 92.5 fL (80.0-98.0); Mean Platelet Volume 12.8 fL (9.4-12.3); Red Blood Count 2.66 X10*6/uL (4.20-5.50); Red Cell Distribution Width 14.7 % (11.0-16.0)
[2024-01-06 11:21] LABS: NRBC Pct Auto 1.2 /100WBC (0.0-0.2); Platelet Count 30 X10*3/uL (160-400); White Blood Count 1.6 X10*3/uL (4.8-10.8)
[2024-01-06 11:30] LABS: Anion Gap 17 (12-20); Blood Urea Nitrogen 37 mg/dL (9-16); Calcium 6.3 mg/dL (8.4-10.2); Carbon Dioxide 32 mmol/L (22-29); Chloride 103 mmol/L (96-108); Creatinine Clr Calc Pharmacy 46.1; Estimated Glomerular Filt Rate 44; Glucose Random 107 mg/dL (60-115); Sodium 149 mmol/L (135-145)
--- NOTE | 2024-01-06 11:40 | MHC.CM.PN ---
Per MD, Patient now wishes to be a Full Code; Hospice referral has been canceled.Per MD's request, [employer] has faxed requested information to [facility] hospital transfer department (Juliane @ fax # [phone]). CM will follow.
--- NOTE | 2024-01-06 11:42 | MHC.CM.PN ---
Per [facility] [employer], Patient's insurance should NOT term tomorrow; insurance was only missing Patient's PROOF OF RESIDENCY, which [facility] [employer] has sent. CM will follow.
--- NOTE | 2024-01-06 12:40 | MHC.CM.PN ---
CM received a call from [facility], stating that insurance is still appearing in the system, as though it will term tomorrow; CM explained that [facility] [employer] has corrected the issue (sent proof of residency)but no transfer will occur until it is clear to them that insurance will not term tomorrow. CM will follow.
[2024-01-06] MEDS: HYDROmorphone HCl 0.5 MG/0.5 ML SYRINGE 0.25 MG IVPUSH (13:10)
--- NOTE | 2024-01-06 13:20 | MHC.CM.PN ---
Per [facility] [employer], Patient has [employer] STANDARD back to 12/27/2023, d/t Patient's frail condition. CM will follow.
--- NOTE | 2024-01-06 13:23 | PM.PNTS ---
Subjective Subjective Date of Service: 01/06/24 Interval history: D/W pt. and her spouse re; her right trapped lung situation,which is not amenable to a tube thoracostomy.This would need a VATS or open decortication. The pt's pancytopenia ( WBC 1.6 PLT 25) along with her very frail and debilitated state , with advanced Stage IV Breast cancer,in my opinion , lisa non-operative candidate ,with the risks far exceeding the potential benefits. All questions answered. A/P per pt, her and Hospitalist Physical Exam Vital Signs: Vital Signs: Last Vital Signs Temp 98.2 F 01/06/24 11:25 Pulse 99 01/06/24 11:25 Resp 20 01/06/24 11:25 BP 130/77 01/06/24 11:25 Pulse Ox 93 01/06/24 11:25 O2 Del Method High Flow Nasal C annula 01/06/24 11:25 O2 Flow Rate 40 01/06/24 11:25 FiO2 50 01/06/24 11:25 BMI result Body Mass Index 31.7 Procedures Date of Service Date of Service: 01/06/24 Progress Note: A&P Assessment and plan (1) Adult failure to thrive: Status: Acute (2) Breast cancer metastasized to bone: Status: Acute (3) Trapped lung: Status: Acute Assessment and Plan: see above Time Spent With Patient Time: Total time managing care of this patient today ____ minutes. Quality Stroke Does the patient have a stroke diagnosis?: No VTE Prior VTE?: No VTE Risk Level:: Medical - moderate - high VTE Device Contraindication: Treatment Not Indicated VTE Drug Contraindication: N/A - Med Ordered
--- NOTE | 2024-01-06 13:31 | PM.EVENT ---
Event Note Date of Service: 01/06/24 Event Note: Patient is a 63 Y F w/ recent diagnosis L metastatic breast cancer 11/02 to soft tissue, lungs c/b recurrent malignant pleural effusion, abdomen, bone, currently on chemotherapy, presenting initially to emergency department on 12/28 w/ nausea/vomiting/diarrhea, found to have acute renal insufficiency, admitted to floor; on 12/29, patient developed hypotension and dyspnea, prompting ICU admission; a chest tube was placed w/ some improvement of dyspnea, and chest tube was subsequently removed; of note, multiple goals of care discussions were had with patient and family, during which patient elected for DNR, DNI and possible comfort-focused care/hospice; patient downgraded to floor on HFNC on 01/02; on 01/05, ICU consulted for persistent hypoxia on HFNC and c/f worsening pneumothorax; upon review, patient on persistent, though stable HFNC of 40-50L 50% for days; upon review of available imaging, patient with appreciable R pneumothorax, though w/ mild worsening over the course of days; furthermore, case discussed w/ Dr. Orozco, who expressed patient is exhibiting trapped lung and recurrent malignant pleural effusion, which is not amendable to chest tube; moreover, patient is deemed not a surgical candidate for VATS; upon evaluation, patient appears chronically-ill appearing, though in no acute distress, alert, oriented to person, place, time, and situation, breath sounds were appreciated bilaterally, w/o overt rales, rhonchi, wheezing, abdomen soft; of note, goals of care conversation had with patient and patient's fiance; overall, patient and patient's fiance understand that patient's disease will never be fully treated, though hope that palliative chemotherapy may provide patient with additional quality time; at the same time, patient and patient's fiance do not want to undergo unnecessary and potentially uncomfortable treatments, procedures, and transfers; in general, patient's fiance only hopes to do the appropriate interventions at the appropriate time, including transitioning to hospice care; given patient is hemodynamically and clinically stable, ICU admission is not warranted at this time; recommend maintaining negative I/O and electrolyte repletion and consider ongoing philosophy of care conversations Time Spent With Patient Time: Total time managing care of this patient today ____ minutes.
--- NOTE | 2024-01-06 14:12 | MHC.SLORD ---
Speech Language Pathology Order Status: Pt seen for followup, reported she is doing fine with purees, wants only ice cream, water and gingerale. Pt did not want PO during BUILDING CARPENTER visit, MD and RN meeting with pt on POC. BUILDING CARPENTER to followup, pt in agreement with [facility] diet for energy conservation while she remains on highflow O2.
[2024-01-06 14:27] LABS: Alanine Aminotransferase 256 U/L (0-31); Albumin Level 3.2 g/dL (3.5-5.0); Alkaline Phosphatase 46 U/L (39-117); Aspartate Amino Transferase 131 U/L (5-31); Bilirubin Direct 0.7 mg/dL (0.0-0.5); Bilirubin Total 1.4 mg/dL (0.0-1.0); Total Protein 5.8 g/dL (6.5-8.0)
[2024-01-06] MEDS: fentaNYL citrate/PF 100 MCG/2 ML VIAL 25 MCG IVPUSH (15:11)
--- NOTE | 2024-01-06 15:18 | PM.PROC ---
Brief Operative Note Date of procedure: 01/06/24 Pre-op diagnosis: Enlarging right pneumothorax Post-op diagnosis: same Procedure: CT right chest tube 10 fr anterior drain placed under CT guidance. No immediate complications.
--- NOTE | 2024-01-06 15:53 | HO.PM.IMPN ---
Subjective Subjective Date of Service: 01/06/24 Interval History: Acute hypoxemic respiratory failure Review of Systems Shortness of breaths seems similar Denies any chest pain Physical Exam Vital Signs: Vital Signs: Last Vital Signs Temp 98.2 F 01/06/24 11:25 Pulse 97 01/06/24 15:24 Resp 16 01/06/24 15:34 BP 120/72 01/06/24 15:24 Pulse Ox 98 01/06/24 15:24 O2 Del Method High Flow Nasal C annula 01/06/24 15:24 O2 Flow Rate 50 01/06/24 15:24 FiO2 50 01/06/24 15:24 BMI result Body Mass Index 31.7 General: AO X 3, no acute distress Resp:air entry somewhat improving, s/p right sided chest tube. CVS: S1,S2,RRR GI: +BS, NT, no distention Skin: No rash Neuro: motor grossly intact Psych: appropriate affect Objective Data Active Medications Acetaminophen (Acetaminophen 325 Mg Tablet) 650 mg PO Q6H PRN PRN Reason: Pain, Mild (Pain Scale 1-3), fever or headache Albuterol/Ipratropium (Albuterol/Iprat 2.5/0.5mg 3 Ml Ampul.Neb) 3 ml INHALE RQ4H WHILE AWAKE [facility] Last Admin: 01/06/24 11:14 Dose: 3 ml Documented By: KATIE Calcium Carbonate (Calcium Carbonate 750 Mg Tab.Chew) 750 mg PO Q4H PRN PRN Reason: Heartburn Dicyclomine HCl (Dicyclomine Hcl 10 Mg Capsule) 10 mg PO TIDAC PRN PRN Reason: Pain, Severe (Pain Scale 7-10) Furosemide (Furosemide 40 Mg/4 Ml Vial) 40 mg IVPUSH DAILY [facility]; Protocol Last Admin: 01/06/24 10:27 Dose: 40 mg Documented By: JEFF Hydromorphone HCl (Hydromorphone Hcl 0.5 Mg/0.5 Ml Syringe) 0.25 mg IVPUSH Q2H PRN; Protocol PRN Reason: Pain, Moderate(Pain Scale 4-6) Last Admin: 01/06/24 13:10 Dose: 0.25 mg Documented By: JEFF Hydromorphone HCl (Hydromorphone Hcl 0.5 Mg/0.5 Ml Syringe) 0.5 mg IVPUSH Q3H PRN; Protocol PRN Reason: Pain, Severe (Pain Scale 7-10) Last Admin: 01/06/24 02:18 Dose: 0.5 mg Documented By: LUPE Fentanyl (Sublimaze/Ns) 1,000 mcg in 100 mls @ 0 mls/hr IVCONT .Q0M BRANDON; Protocol Acyclovir Sodium 400 mg/ (Dextrose) 108 mls @ 110 mls/hr IV Q12H BR[facility]ON Last Infusion: 01/06/24 02:17 Dose: Infused Documented By: LUPE Cefepime HCl (Maxipime) 2 gm in 50 mls @ 100 mls/hr IV Q12H BR[facility]ON Last Infusion: 01/06/24 02:50 Dose: Infused Documented By: LUPE Fluconazole (Diflucan) 200 mg in 100 mls @ 100 mls/hr IV Q24H BRANDON Last Infusion: 01/05/24 17:42 Dose: Infused Documented By: AUDREY Potassium Chloride (Potassium Chloride/H20) 10 meq in 100 mls @ 100 mls/hr IV Q1H BRANDON Stop: 01/06/24 16:44 Levalbuterol HCl (Levalbuterol Hcl 1.25 Mg/3 Ml Vial.Neb) 2.5 mg INHALE Q4H PRN PRN Reason: shortness of breath Lidocaine/Diphenhydr/Alum/Mg/Simeth (Mag&Al/Sim/Diphenhyd/Lidocaine 10 Ml Oral.Susp) 10 ml PO Q4H BRANDON; Protocol Last Admin: 01/06/24 10:24 Dose: 10 ml Documented By: JEFF Magnesium Hydroxide (Milk Of Magnesia 30 Ml Oral.Susp) 30 ml PO DAILY PRN PRN Reason: Constipation Naloxone HCl (Naloxone Hcl 0.4 Mg/Ml Vial) 0.2 mg IVPUSH Q2M PRN PRN Reason: Excessive sedation or RR < 8 Olanzapine (Olanzapine 10 Mg Vial) 10 mg IM DAILY PRN PRN Reason: agitation Last Admin: 01/01/24 19:39 Dose: 10 mg Documented By: CECELIA Ondansetron HCl (Ondansetron Hcl 4 Mg/2 Ml Vial) 4 mg IVPUSH Q4H PRN PRN Reason: Nausea and Vomiting Last Admin: 01/05/24 18:02 Dose: 4 mg Documented By: AUDREY Sodium Chloride (0.9 % Sodium Chloride Flush 3 Ml Syringe) 3 ml IVFLUSH QSHIFT BRANDON Last Admin: 01/06/24 10:24 Dose: 3 ml Documented By: JEFF Labs 01/06/24 10:05 01/06/24 10:05 Labs: Laboratory Results - last 24 hr 01/05/24 01/06/24 15:28 10:05 MCV 92.5 MCH 29.7 MCHC 32.1 RDW 14.7 Plt Count 30 L MPV 12.8 H Absolute Nucleated RBC 0.020 H Nucleated RBC % (auto) 1.2 H PT 20.4 H D INR 1.7 H APTT 28.7 Anion Gap 17 Estim Creat Clear Calc 46.1 Estimated GFR 44 Random Glucose 107 Calcium 6.3 L Total Bilirubin 1.4 H Direct Bilirubin 0.7 H AST 131 H ALT 256 H Alkaline Phosphatase 46 Total Protein 5.8 L Albumin 3.2 L Blood Type O Positive Antibody Screen NEGATIVE Crossmatch See Detail Microbiology Microbiology Results: Microbiology 12/31/23 14:30 Blood Culture - Final Blood - Venous No growth after 5 days. 12/31/23 14:36 Blood Culture - Final Blood - Venous No growth after 5 days. Assessment and Plan (1) Acute renal failure: Status: Acute (2) Hypocalcemia: Status: Acute (3) Metabolic acidosis: Status: Acute (4) Breast cancer metastasized to bone: Status: Acute Plan 63-year-old woman diagnosed with metastatic breast cancer in October 2023. She was started on letrozole in October and abemaciclib 200 mg PO BID on 12/09/2023. She was also started on denosumab for bone metastases. She presented to the hospital on 12/28 with nausea and vomiting and was found to have DANIELA with a creatinine of 12, hypokalemia, and a large right-sided Hydropneumothorax. On 12/29, she developed hypotension and acute respiratory distress and was transferred to the ICU for further management of the following. Acute hypoxemic Respiratory Failure: Secondary to metabolic acidosis and Large Right sided right hydropneumothorax that required a chest tube removed. Chest X-ray increasing right sided pneumothorax. Patient remains hypoxix and still on Highflow, wean O2 as tolerated. Discussed with IR as well as with General surgery Dr. Orozco-s/p chest tube placement Discussed with ICU in detail currently recommended to continue current management, I further deterioration we will call ICU back. Acute Kidney Injury (DANIELA): Likely secondary to nausea, vomiting, and diarrhea from chemotherapy. Renal function improving with fluids, creatinine now ?1.38 down from 12 on admission. Severe Metabolic Acidosis: Resolved with IVF and bicab. Hypernatremia: due to free water deficit and volume depletion and LR,resolved. Hypocalcemia: flactuating in 6.3 range . Given calcium IV. Breast Cancer with Metastasis: November PET showed hydronephrosis, peritoneal metastases, and ascites. Recent CT showed improvement with no hydronephrosis or ascites. oncology following Pancytopenia--d/t cancer/chemo might be conrtibuting. Discussed with Dr. Hoffman-added 1 PRBC and platelets. Transaminitis: Elevated LFTs (400s/300s) likely due to passive liver congestion; discussed with nephrology placed Lasix on hold because of hyponatremia. Neutropenia and Mucositis: severe oral and probable gut mucositis. Continuing antibiotics (cefepime), antifungals (fluconazole), antivirals (acyclovir), and supportive care (magic mouthwash). Prophylaxis: Heparin, pantoprazole. Code Status: Full code Ongoing need of hospitalization-multiple issues as above acute hypoxemic respiratory failure and pneumothorax, pancytopenia, neutropenia/mucositis/transaminitis: Had chest tube due to pneumothorax, monitor renal function electrolytes and CBC closely. Also placed call for [facility] as well as [facility] for transfer, [facility] called back and they are trying to arrange backup thoracic surgery for possible decortication procedure-awaiting response. Quality Stroke Does the patient have a stroke diagnosis?: No VTE Prior VTE?: No VTE Risk Level:: Medical - moderate - high VTE Device Contraindication: Treatment Not Indicated VTE Drug Contraindication: N/A - Med Ordered
--- NOTE | 2024-01-06 16:44 | P.DS_ITS ---
DS: Providers Provider Date of Service: 01/06/24 Date of admission: 12/29/23 16:17 Date of discharge: 01/06/24 Primary care physician: Unknown Physician Consults: 12/29/23 16:16 Consult to Hematology / Oncology Routine Consulting Provider: [facility] Oncology/Hematology Reason for consultation: Chemo S\E, discuss goals of care and tx plan 12/29/23 16:22 Consult to Nephrology Routine Consulting Provider: [facility] Reason for consultation: DANIELA 12/30/23 13:01 Consult to Wound Care Routine Reason for consultation: skin impairment to coccyx 01/05/24 08:33 Consult to Cardiology Routine Consulting Provider: [facility] Reason for consultation: ?chf Has provider been notified: No Consult to Thoracic Surgery Routine Consulting Provider: Oleg Orozco Reason for consultation: increase in right pneumothorax Has provider been notified: No 01/06/24 12:45 Consult to Critical Care Routine Consulting Provider: Evelin Cifuentes Reason for consultation: level of care Has provider been notified: Yes Attending physician on discharge: Aiden Nieto Discharging clinician: Aiden Nieto DS: Diagnosis Discharge Diagnosis (1) Acute renal failure: Status: Acute (2) Hypocalcemia: Status: Acute (3) Metabolic acidosis: Status: Acute (4) Breast cancer metastasized to bone: Status: Acute DS: Summary Hospital Course Hospital Course: HPI: 63 years old lady with PMH of 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 To follow with dr Caballero as OP for decortication but never materialized. In ED found to have DANIELA w Cr of 11 from baseline of 1.4 with associated hypokalemia and hypocalcemia. significant metabolic acidosis with low CO2. CXR showing worsening pneumothorax. patient reports worsening respiratory status but she is more concerned about uncontrolled pain in her hip. Will be admitted for further work up and treatment. Oncology and nephrology consults. Hospital course: 63-year-old woman diagnosed with metastatic breast cancer in October 2023. She was started on letrozole in October and abemaciclib 200 mg PO BID on 12/09/2023. She was also started on denosumab for bone metastases. She presented to the hospital on 12/28 with nausea and vomiting and was found to have DANIELA with a creatinine of 12, hypokalemia, and a large right-sided Hydropneumothorax. On 12/29, she developed hypotension and acute respiratory distress and was transferred to the ICU for further management -patient was somewhat improving but still on high-flow when transferred to the floor , and chest tube was removed in icu later on01/03/24 (due to low drainage )and patient transferred to floor with high flow. Furthermore: Acute hypoxemic respiratory failure possibly multifactorial-has right pneumothorax and lung trapping-on nebs, high-flow. Still unable to wean off from high-flow, chest x-ray showing slowly increasing right-sided pneumothorax so had chest tube placement today-feeling somewhat better after chest tube placement. (please see imaging studies section for details). Discussed with the thoracic surgery recommended to transfer to tertiary care for possible decortication. possible component of chf also : ef is 40%,has some congestion. currently on lasix ,tailor therpay as per hypernatremia/volume status. Consider cardiology evaluation if needed. Acute Kidney Injury (DANIELA): Likely secondary to nausea, vomiting, and diarrhea from chemotherapy. Renal function improving with fluids, creatinine now ?1.2down from 12 on admission. Severe Metabolic Acidosis: Resolved with IVF and bicab. Hypernatremia: due to free water deficit and volume depletion and LR,flactauting 147-149 range. Hypocalcemia: flactuating in 6.3 range . Given calcium IV. conisder nephrology eval for multiple electrolytic abnormalities. Breast Cancer with Metastasis: November PET showed hydronephrosis, peritoneal metastases, and ascites. Recent CT showed improvement with no hydronephrosis or ascites. Pancytopenia--d/t cancer/chemo might be conrtibuting. . Patient's WBC is 1.6 range, hemoglobin/hematocrit is 7.9 range from few days Platelets in range of 30(somewhat better than yesterday was 25). PDiscussed with hemtology/oncology-Dr. Hoffman-added 1 PRBC and platelets. moniter cbc closely Transaminitis: Elevated LFTs improving- likely due to passive liver congestion; discussed with nephrology placed Lasix on hold because of hyponatremia. Neutropenia and Mucositis: severe oral and probable gut mucositis. Continuing antibiotics (cefepime), antifungals (fluconazole), antivirals (acyclovir), and supportive care (magic mouthwash). consider Id gage. patient and her had discussions with hospitlist service ,oncology , throacic surgery-they want to further persue treatement , presently full code . accepting physician is dr gonzalez [facility]. Patient is agreeable to go as well as patient's . Above management discussed with the patient in detail length she/her abilio ballesteros understand and in agreement with the above plan, time spent 50 minutes and 50% time spent on counseling. above conversation witnessed by staff. Time Attestation Total time managing care of this patient today: 40 mintues. Discharge Coordination Time (in mins): Forty minute Quality: Safe Use of Opioids Does Pt have an Active Cancer Diagnosis on the Problem List?: No Quality: Stroke Does the patient have a stroke diagnosis?: No Physical Exam Vital Signs: Vital Signs: Last Vital Signs Temp 97.6 F 01/06/24 16:19 Pulse 97 01/06/24 16:32 Resp 22 H 01/06/24 16:32 BP 114/75 01/06/24 16:19 Pulse Ox 98 01/06/24 15:24 O2 Del Method High Flow Nasal C annula 01/06/24 15:24 O2 Flow Rate 50 01/06/24 15:24 FiO2 50 01/06/24 15:24 BMI result Body Mass Index 31.7 General: AO X 3, no acute distress Resp:air entry somewhat improving, s/p right sided chest tube. CVS: S1,S2,RRR GI: +BS, NT, no distention Skin: No rash Neuro: motor grossly intact Psych: appropriate affect DS: Data Data Completed and Pending Labs on day of discharge: Laboratory Results - last 24 hr 01/05/24 01/06/24 15:28 10:05 WBC 1.6 L RBC 2.66 L Hgb 7.9 L Hct 24.6 L MCV 92.5 MCH 29.7 MCHC 32.1 RDW 14.7 Plt Count 30 L MPV 12.8 H Absolute Nucleated RBC 0.020 H Nucleated RBC % (auto) 1.2 H Sodium 149 H Potassium 3.0 L Chloride 103 Carbon Dioxide 32 H Anion Gap 17 BUN 37 H Creatinine 1.23 Estim Creat Clear Calc 46.1 Estimated GFR 44 Random Glucose 107 Calcium 6.3 L Total Bilirubin 1.4 H Direct Bilirubin 0.7 H AST 131 H ALT 256 H Alkaline Phosphatase 46 Total Protein 5.8 L Albumin 3.2 L Blood Type O Positive Antibody Screen NEGATIVE Crossmatch See Detail Imaging Chest x-ray: Radiologist's impression: ITS Impressions Chest X-Ray 12/29/23 13:20 IMPRESSION: Concerning right-sided hydropneumothorax with a partially collapsed right lung. Chronic interstitial lung disease superimposed malignancy cannot be entirely excluded. Electronically signed by: Dawit Barnard MD 12/29/2023 02:17 PM EST RP Abdomen/Pelvis CT 12/29/23 16:07 IMPRESSION: Right hydropneumothorax. Innumerable sclerotic lytic metastasis. Fleischner guidelines were followed. Electronically signed by: Nazario Babcock MD 12/29/2023 06:15 PM EST RP Chest X-Ray 12/30/23 01:17 IMPRESSION: Persistent right hydropneumothorax, moderate volume. Partially collapsed right lung. Overall no gross change. Electronically signed by: Dawit Barnard MD 12/30/2023 07:06 AM EST RP Chest CT 12/30/23 03:25 IMPRESSION: Right-sided hydropneumothorax, large volume. Partially collapsed right lung. Mild interstitial lung edema. Numerous blastic osseous metastasis. Discussed with the nurse, Juan, at the time of the interpretation on December 30, 2023 at 8:15 AM. Fleischner guidelines were followed. Electronically signed by: Dawit Barnard MD 12/30/2023 08:17 AM EST RP Chest X-Ray 12/30/23 05:08 IMPRESSION: 1. Unchanged diffuse vascular and interstitial prominence in bilateral lungs, partially collapsed right lung. 2. Persistent large 30% right hydropneumothorax. 3. Interval placement of Right lateral lung base percutaneous thoracostomy pigtail drainage catheter. Electronically signed by: Sana Cohen MD 12/30/2023 07:31 AM EST RP Chest X-Ray 01/01/24 09:30 IMPRESSION: 1. Slight repositioning of the right pleural catheter. 2. Right hydropneumothorax is significantly smaller but remains present. 3. Similar diffuse bilateral patchy interstitial and alveolar pulmonary opacities. 4. Blastic metastases of the skeletal structures. Electronically signed by: Alexandro Samayoa MD 01/01/2024 11:03 AM EST RP Chest X-Ray 01/02/24 14:20 IMPRESSION: 1. Right-sided chest tube in unchanged position with a persistent right apical pneumothorax, similar when compared to the prior examination. 2. Small right-sided pleural effusion with right basilar airspace opacities, unchanged. 3. Left basilar airspace opacities, slightly increased. Electronically signed by: Suresh Villareal MD 01/02/2024 07:41 PM EST RP Abdomen Ultrasound 01/03/24 12:28 IMPRESSION: 1. Probable gallbladder wall polyp measuring 0.5 cm. No cholelithiasis, gallbladder wall thickening, or pericholecystic free fluid to suggest acute cholecystitis. 2. Mild right renal pelvic fullness. 3. Pancreas obscured by overlying bowel gas. Electronically signed by: Suresh Villareal MD 01/03/2024 03:04 PM EST RP Chest X-Ray 01/03/24 15:00 IMPRESSION: 1. Right chest tube has been removed. 2. Slightly increased right pneumothorax. No evidence of tension. 3. Diffuse interstitial opacification and bilateral subpulmonic pleural effusions unchanged. (Referring physician staff is being called, by physician staff assistance, to be alerted of the above critical findings and recommendations.) A J 01/03/2024 2:46 PM [employer] 1. Electronically signed by: Chip Barnes MD 01/03/2024 03:47 PM EST RP Chest X-Ray 01/05/24 12:50 IMPRESSION: 1. Slight increase in volume of right-sided pneumothorax since prior chest x-ray January 03, 2024. No evidence of tension pneumothorax. 2. Subcutaneous emphysema now seen along the right axillary region. 3. Hazy bilateral airspace opacities remain similar prior chest x-ray. Electronically signed by: Cody Meek MD 01/05/2024 05:36 PM EST RP Chest X-Ray 01/06/24 09:50 IMPRESSION: 1. Mildly worsening right moderate to large sized pneumothorax. Stable right hydrothorax. 2. Worsening opacity in the inflated right midlung, and throughout the left lung in a pulmonary edema type pattern. 3. Right chest wall subcutaneous emphysema. 4. Blastic metastases of the skeletal structures. Electronically signed by: Alexandor Samayoa MD 01/06/2024 12:13 PM EST RP Discharge Plan Discharge Anticipated Discharge Date/Time: 01/06/24 16:31 Patient Disposition: Xfer [facility] Hospital Discharge Diagnosis: trapped lung,right pneumothorax s/p chest tube ,chf Referrals: [facility] [Other] - 1 Week Physician,Unknown J [Primary Care Provider] - 1 Week Discharge Medications: New furosemide 10 mg/mL Solution 40 mg IVPUSH DAILY Qty: 1 0RF Protocol: Hold for SBP< HOLD for SBP < : 90 ipratropium-albuterol 0.5 mg-3 mg(2.5 mg base)/3 mL Solution For Nebulization 3 ml inhalation RQ4H WHILE AWAKE Qty: 1 0RF fluconazole in NaCl (iso-osm) 200 mg/100 mL Piggyback 200 mg IV Q24H Qty: 1 0RF levalbuterol HCl 1.25 mg/3 mL Solution For Nebulization 2.5 mg inhalation Q4H PRN (Reason: shortness of breath) Qty: 1 0RF dicyclomine 10 mg Capsule 10 mg PO TIDAC PRN (Reason: Pain, Severe (Pain Scale 7-10)) Qty: 1 0RF olanzapine 10 mg Recon Soln 10 mg IM DAILY PRN (Reason: agitation) Qty: 1 0RF cefepime in dextrose 5 % 2 gram/50 mL Piggyback 2 g IV Q12H Qty: 1 0RF hydromorphone 0.5 mg/0.5 mL Syringe 0.25 mg IVPUSH Q2H PRN (Reason: Pain, Moderate(Pain Scale 4-6)) Qty: 1 0RF Protocol: Hold for RR < HOLD and contact provider for RR < (bpm): 12 Rx Instructions: Partial Fill upon patient request. acyclovir in 0.9 % sodium chlr 200 mg/100 mL piggyback 401 mg IV Q12H Continued zolpidem 5 mg tablet 5 mg PO BEDTIME PRN (Reason: insomnia) acetaminophen 500 mg Tablet 500 mg PO DAILY PRN (Reason: Pain) oxycodone 5 mg tablet 5 mg PO DAILY PRN (Reason: Pain) ondansetron HCl 8 mg tablet 8 mg PO Q8H PRN (Reason: Nausea And Vomiting) Held lisinopril 10 mg tablet 10 mg PO DAILY Hold Instructions: Resume on 01/19/24. hydrochlorothiazide 25 mg tablet 25 mg PO DAILY Hold Instructions: Resume on 01/15/24. letrozole 2.5 mg tablet 2.5 mg PO DAILY Hold Instructions: Resume on 01/15/24. abemaciclib 200 mg Tablet 200 mg PO BID Qty: 60 6RF Hold Instructions: Resume on 01/15/24. Discharge Orders: Discharge Order (Routine); Ordered 01/06/24 Ordered By: Aiden Nieto Diet: Advance to usual diet Activity on Discharge: As tolerated Stand Alone Forms: Patient Portal Discharge page Print Language: Kinyarwanda Care Plan Goals: 63-year-old woman diagnosed with metastatic breast cancer in October 2023. She was started on letrozole in October and abemaciclib 200 mg PO BID on 12/09/2023. She was also started on denosumab for bone metastases. She presented to the hospital on 12/28 with nausea and vomiting and was found to have DANIELA with a creatinine of 12, hypokalemia, and a large right-sided Hydropneumothorax. On 12/29, she developed hypotension and acute respiratory distress and was transferred to the ICU for further management . Acute hypoxemic respiratory failure possibly multifactorial-has right pneumothorax and lung trapping-on nebs, high-flow, chest tube placed-feeling somewhat better after that. Discussed with the thoracic surgery recommended to transfer to tertiary care for possible decortication. possible component of chf also : ef is 40%,has some congestion. currently on lasix ,tailor therpay as per hypernatremia/volume status. Acute Kidney Injury (DANIELA): Likely secondary to nausea, vomiting, and diarrhea from chemotherapy. Renal function improving with fluids, creatinine now ?1.2down from 12 on admission. Severe Metabolic Acidosis: Resolved with IVF and bicab. Hypernatremia: due to free water deficit and volume depletion and LR,flactauting 147-149 range. Hypocalcemia: flactuating in 6.3 range . Given calcium IV. conisder nephrology eval for multiple electrolytic abnormalities. Breast Cancer with Metastasis: November PET showed hydronephrosis, peritoneal metastases, and ascites. Recent CT showed improvement with no hydronephrosis or ascites. Pancytopenia--d/t cancer/chemo might be conrtibuting. Discussed with Dr. Hoffman-added 1 PRBC and platelets. moniter cbc closely. Transaminitis: Elevated LFTs improving- likely due to passive liver congestion; discussed with nephrology placed Lasix on hold because of hyponatremia. Neutropenia and Mucositis: severe oral and probable gut mucositis. Continuing antibiotics (cefepime), antifungals (fluconazole), antivirals (acyclovir), and supportive care (magic mouthwash). consider Id eval. Health Concerns: as above. Plan of Treatment: as above. Assessment: as above. Discharge Date/Time: 01/06/24 20:45
[2024-01-06] MEDS: Potassium Chloride/H20 10 MEQ/100 ML PIGGYBACK 100 MEQ IV (19:59)
--- NOTE | 2024-01-06 20:13 | PC.NURSE ---
attempted to call unit at [facility] to give report, no answer
--- NOTE | 2024-01-07 10:12 | MHC.CM.PN ---
Patient was transferred to [facility] yesterday. CM was informed by [employer] that the HCP is being requested, by , to be sent to [facility] (HCP faxed to [phone]).
[2024-01-07 14:13] LABS: Vitamin D 25-OH, D2 <4 ng/mL; Vitamin D 25-OH, D3 7 ng/mL; Vitamin D 25-OH, Total 7 ng/mL (30-100)
== END 2024-01-06 20:45 | disposition short-term general hospital (02) | DRG 194 ==
LOC: HO.ED 15:12 → HO.EDOVER 16:29 → HO.ICU 12-30 04:26 → HO.IMC 01-03 17:16
PROVIDERS: Internal Medicine; Internal Medicine Critical Care Medicine; Nurse Practitioner Family; Physician Assistant; Physician Assistant Medical; Radiology Vascular & Interventional Radiology; Student in an Organized Health Care Education/Training Program; Admitting Provider Student in an Organized Health Care Education/Training Program; Emergency Provider Emergency Medicine Emergency Medical Services; Visit Provider Internal Medicine
PROC: 0W9930Z Drainage of Right Pleural Cavity with Drainage Device, Percutaneous Approach (ICD-10-PCS; CPT 32551; principal; 2024-01-06 15:00)
DX: J94.2 Hemothorax (principal); I50.9 Heart failure, unspecified; N17.0 Acute kidney failure with tubular necrosis; J96.01 Acute respiratory failure with hypoxia; D61.810 Antineoplastic chemotherapy induced pancytopenia; C78.01 Secondary malignant neoplasm of right lung; C79.19 Secondary malignant neoplasm of other urinary organs; E83.51 Hypocalcemia; C79.51 Secondary malignant neoplasm of bone; J91.0 Malignant pleural effusion; E87.0 Hyperosmolality and hypernatremia; E87.20 Acidosis, unspecified; C50.512 Malignant neoplasm of lower-outer quadrant of left female breast; Z66 Do not resuscitate; E86.0 Dehydration; R62.7 Adult failure to thrive; E86.1 Hypovolemia; K52.1 Toxic gastroenteritis and colitis; Z68.31 Body mass index [BMI] 31.0-31.9, adult; J44.9 Chronic obstructive pulmonary disease, unspecified; K12.30 Oral mucositis (ulcerative), unspecified; J98.19 Other pulmonary collapse; D70.9 Neutropenia, unspecified; C78.6 Secondary malignant neoplasm of retroperitoneum and peritoneum; E87.3 Alkalosis; G89.3 Neoplasm related pain (acute) (chronic); I95.9 Hypotension, unspecified; K92.81 Gastrointestinal mucositis (ulcerative); E87.6 Hypokalemia; R11.2 Nausea with vomiting, unspecified; T45.1X5A Adverse effect of antineoplastic and immunosuppressive drugs, initial encounter; Z17.410 Hormone receptor positive with human epidermal growth factor receptor 2 positive status; Z87.891 Personal history of nicotine dependence; Z79.899 Other long term (current) drug therapy
CPT/HCPCS: 32551; 36415; 71045; 71250; 74176; 76705; 80048; 80053; 80076; 81001; 82306; 82803; 83605; 83690; 83735; 83880; 83970; 84100; 84484; 85007; 85025; 85027; 85610; 85730; 86850; 86900; 86901; 86923; 87040; 87077; 87086; 87186; 87205; 92526; 92610; 93005; 93306; 94640; 94799; 99285; A7041; C1729; C1758; J0133; J0613; J0692; J0696; J1100; J1171; J1200; J1450; J1630; J1644; J1940; J2060; J2270; J2359; J2405; J2560; J2765; J2919; J3010; J3360; J3475; J3480; J7120; P9016; P9047; P9073; Q9957

== ENCOUNTER → 2023-12-29 12:13 | Outpatient (BNV) | payer OTHER, SELFPAY | PROVIDERS: Emergency Provider Emergency Medicine Emergency Medical Services; Visit Provider Radiology Diagnostic Radiology | DX: R06.02 Shortness of breath (principal) | CPT/HCPCS: 71045 ==

== ENCOUNTER → 2023-12-29 12:13 | Outpatient (BNV) | payer OTHER, SELFPAY | PROVIDERS: Admitting Provider Student in an Organized Health Care Education/Training Program; Emergency Provider Emergency Medicine Emergency Medical Services; Visit Provider Internal Medicine Cardiovascular Disease | DX: R94.31 Abnormal electrocardiogram [ECG] [EKG] (principal) | CPT/HCPCS: 93010 ==

== ENCOUNTER → 2023-12-29 12:51 | Outpatient (BNV) | payer OTHER, SELFPAY | PROVIDERS: Emergency Provider Emergency Medicine Emergency Medical Services; Visit Provider Nurse Practitioner Family | DX: N17.9 Acute kidney failure, unspecified (principal); E87.6 Hypokalemia; E87.20 Acidosis, unspecified; C50.919 Malignant neoplasm of unspecified site of unspecified female breast; C79.51 Secondary malignant neoplasm of bone | CPT/HCPCS: 99222; 99232; 99233 ==

== ENCOUNTER 2023-12-29 16:17 | Outpatient (BNV) | payer OTHER, SELFPAY | END 2024-01-06 09:50 | PROVIDERS: Admitting Provider Student in an Organized Health Care Education/Training Program; Emergency Provider Emergency Medicine Emergency Medical Services; Visit Provider Radiology Diagnostic Radiology | DX: J93.9 Pneumothorax, unspecified (principal) | CPT/HCPCS: 71045 ==

== ENCOUNTER 2023-12-29 16:17 | Outpatient (BNV) | payer OTHER, SELFPAY | END 2024-01-01 09:30 | PROVIDERS: Admitting Provider Student in an Organized Health Care Education/Training Program; Emergency Provider Emergency Medicine Emergency Medical Services; Visit Provider Radiology Diagnostic Radiology | DX: N17.9 Acute kidney failure, unspecified (principal) | CPT/HCPCS: 71045 ==

== ENCOUNTER 2023-12-29 16:17 | Outpatient (BNV) | payer OTHER, SELFPAY | END 2023-12-30 01:17 | PROVIDERS: Admitting Provider Student in an Organized Health Care Education/Training Program; Emergency Provider Emergency Medicine Emergency Medical Services; Visit Provider Radiology Diagnostic Radiology | DX: R06.00 Dyspnea, unspecified (principal); R06.02 Shortness of breath | CPT/HCPCS: 71045; 71250 ==

== ENCOUNTER 2023-12-29 16:17 | Outpatient (BNV) | payer OTHER, SELFPAY | END 2024-01-05 07:00 | PROVIDERS: Admitting Provider Student in an Organized Health Care Education/Training Program; Emergency Provider Emergency Medicine Emergency Medical Services; Visit Provider Internal Medicine | DX: R00.0 Tachycardia, unspecified (principal) | CPT/HCPCS: 93306 ==

== ENCOUNTER → 2023-12-29 16:17 | Outpatient (BNV) | payer OTHER, SELFPAY | PROVIDERS: Admitting Provider Student in an Organized Health Care Education/Training Program; Emergency Provider Emergency Medicine Emergency Medical Services; Visit Provider Student in an Organized Health Care Education/Training Program | DX: N17.9 Acute kidney failure, unspecified (principal); C50.919 Malignant neoplasm of unspecified site of unspecified female breast; C79.51 Secondary malignant neoplasm of bone; E83.51 Hypocalcemia; E87.20 Acidosis, unspecified | CPT/HCPCS: 99223; 99232; 99239; 99499 ==

== ENCOUNTER → 2023-12-29 16:17 | Outpatient (BNV) | payer OTHER, SELFPAY | PROVIDERS: Admitting Provider Student in an Organized Health Care Education/Training Program; Emergency Provider Emergency Medicine Emergency Medical Services; Visit Provider Surgery | DX: J98.19 Other pulmonary collapse (principal); R62.7 Adult failure to thrive; C50.919 Malignant neoplasm of unspecified site of unspecified female breast; C79.51 Secondary malignant neoplasm of bone | CPT/HCPCS: 99222; 99233 ==

== ENCOUNTER → 2023-12-29 16:17 | Outpatient (BNV) | payer OTHER, SELFPAY | PROVIDERS: Admitting Provider Student in an Organized Health Care Education/Training Program; Emergency Provider Emergency Medicine Emergency Medical Services; Visit Provider Physician Assistant Surgical | DX: J93.9 Pneumothorax, unspecified (principal) | CPT/HCPCS: 32556 ==

== ENCOUNTER → 2023-12-29 16:17 | Outpatient (BNV) | payer OTHER, SELFPAY | PROVIDERS: Admitting Provider Student in an Organized Health Care Education/Training Program; Emergency Provider Emergency Medicine Emergency Medical Services; Visit Provider Physician Assistant Medical | DX: N17.9 Acute kidney failure, unspecified (principal); R62.7 Adult failure to thrive; E87.6 Hypokalemia; E83.51 Hypocalcemia | CPT/HCPCS: 99291; 99292; 99499 ==

== ENCOUNTER → 2023-12-29 16:17 | Outpatient (BNV) | payer OTHER, SELFPAY | PROVIDERS: Admitting Provider Student in an Organized Health Care Education/Training Program; Emergency Provider Emergency Medicine Emergency Medical Services; Visit Provider Internal Medicine | DX: C50.912 Malignant neoplasm of unspecified site of left female breast (principal); C79.51 Secondary malignant neoplasm of bone; D61.810 Antineoplastic chemotherapy induced pancytopenia | CPT/HCPCS: 99223; 99232 ==